=== PATIENT | female | born 1950 | race Caucasian/White ===

== ENCOUNTER → 2016-10-30 | Outpatient (CLI) | payer MEDICARE, MEDICAID ==
[~2016-10-30] MED LIST: ALBU18 IN; ALBU2SYP IN; ASPI81CH43 PO; CARV6.2551 PO; CLON1TAB3 PO; FER325T PO; FLUT110A IN; GABA300C8; LANTUS SUBCUT; LISI-275 PO; METF-312 PO; NITROSTAT PO; OMEP20TA44 PO; OXYC325T14 PO; PAXIL PO; SIMV-13 PO; SITA100T7 PO; TRAM50TA2 PO; VENTOLIN INFIL; VOLTARAN
[2016-10-30 17:02] LABS: Basophils # (auto) 0.1 uL; Basophils % (auto) 0.7 % (0.0-2.0); DEFINITIVE VIEW TRANSMISSION; Eosinophils # (auto) 0.3 uL; Eosinophils % (auto) 1.9 % (0.0-7.0); Hematocrit 39.3 % (36.0-46.0); Hemoglobin 12.7 g/dL (12.2-16.2); Lymphocytes % (auto) 13.8 % (10.0-50.0); Mean Corpuscular Hemoglobin 26.6 pg (28.0-32.0); Mean Corpuscular Hgb Conc. 32.3 g/dL (32.0-36.0); Mean Corpuscular Volume 82.3 fL (80.0-100.0); Mean Platelet Volume 8.7 fL (7.4-10.4); Monocytes # (auto) 0.7 uL; Monocytes % (auto) 5.1 % (0.0-12.0); Neutrophils # (auto) 11.2 uL; Neutrophils % (auto) 78.5 % (37.0-80.0); Platelet Count (auto) 498 10^3/uL (140-450); Red Cell Distribution Width 15.5 % (11.6-16.0); White Blood Cell 14.2 10^3/uL (4.4-10.8)
[2016-10-30 17:29] LABS: Albumin 3.8 g/dL (3.4-5.0); Bilirubin, Total 0.2 mg/dL (0.2-1.0); Calcium 9.3 mg/dL (8.5-10.1); Potassium 4.9 mmol/L (3.5-5.1); Total Protein 7.9 g/dL (6.4-8.2)
[2016-10-30 17:33] LABS: Urine Bilirubin Negative (Negative); Urine Blood Negative /uL (Negative); Urine Color Yellow (Yellow); Urine Glucose TRACE mg/dL (Normal); Urine Hyaline Cast MOD /lpf (0 - 2); Urine Ketone TRACE (Negative); Urine Mucus FEW (None Seen); Urine RBC 3 /hpf (0 - 4); Urine Squamous Epithelial Cell MOD /hpf (<5); Urine pH 5.5 (5.0-8.0)
[2016-10-30 17:37] LABS: Urine Nitrite POSITIVE (Negative)
== END | disposition home or self-care (01) ==
LOC: LAB 16:43
PROVIDERS: ATTEND Family Medicine
DX: E11.9 Type 2 diabetes mellitus without complications (principal); E78.5 Hyperlipidemia, unspecified
CPT/HCPCS: 36415; 80053; 80061; 81001; 82043; 82306; 83036; 85025

== ENCOUNTER → 2018-02-12 | Outpatient (CLI) | payer MEDICARE, MEDICAID ==
[~2018-02-12] MED LIST changes: -ALBU2SYP IN; +ALBU2SYP3 IN; -CLON1TAB3 PO; +CLON1TAB4 PO; +GABA300C10; -GABA300C8; -METF-312 PO; +METF-370 PO
[2018-02-12 14:33] LABS: Basophils # (auto) 0.1 uL; Basophils % (auto) 0.9 % (0.0-2.0); Eosinophils # (auto) 0.2 uL; Eosinophils % (auto) 2.8 % (0.0-7.0); Hematocrit 41.2 % (36.0-46.0); Hemoglobin 13.4 g/dL (12.2-16.2); Lymphocytes # (auto) 1.5 uL; Lymphocytes % (auto) 16.6 % (10.0-50.0); Mean Corpuscular Hemoglobin 27.6 pg (28.0-32.0); Mean Corpuscular Hgb Conc. 32.6 g/dL (32.0-36.0); Mean Corpuscular Volume 84.7 fL (80.0-100.0); Monocytes # (auto) 0.6 uL; Monocytes % (auto) 6.6 % (0.0-12.0); Neutrophils # (auto) 6.4 uL; Neutrophils % (auto) 73.1 % (37.0-80.0); Platelet Count (auto) 339 10^3/uL (140-450); Red Blood Cells 4.86 10^6/uL (4.0-5.20); Red Cell Distribution Width 15.3 % (11.8-14.3); White Blood Cell 8.8 10^3/uL (4.4-10.8)
[2018-02-12 15:06] LABS: Albumin 3.8 g/dL (3.4-5.0); Bilirubin, Total 0.4 mg/dL (0.2-1.0); Calcium 9.3 mg/dL (8.5-10.1); Potassium 4.7 mmol/L (3.5-5.1); Total Protein 7.6 g/dL (6.4-8.2)
[2018-02-13 12:55] LABS: Urine Bacteria FEW /hpf (None Seen); Urine Blood Negative /uL (Negative); Urine Budding Yeast MODERATE /hpf (None Seen); Urine Hyaline Cast FEW /lpf (0 - 2); Urine Mucus FEW (None Seen); Urine Specific Gravity 1.028 (1.001-1.035); Urine WBC 14 /hpf (0 - 5)
[2018-02-13 13:54] LABS: Amphetamine Screen, Urine NEGATIVE (NEGATIVE); Barbiturate Scree,Urine NEGATIVE (NEGATIVE); Benzodiazephine Screen, Urine NEGATIVE (NEGATIVE); Cannabinoid Screen, Urine NEGATIVE (NEGATIVE); Cocaine Screen, Urine NEGATIVE (NEGATIVE); Opiate Scree,Urine NEGATIVE (NEGATIVE); Phencyclidine Screen, Urine NEGATIVE (NEGATIVE)
== END | disposition home or self-care (01) ==
LOC: LAB 13:23
PROVIDERS: ATTEND Nurse Practitioner
DX: Z02.83 Encounter for blood-alcohol and blood-drug test (principal); E78.5 Hyperlipidemia, unspecified; I12.9 Hypertensive chronic kidney disease with stage 1 through stage 4 chronic kidney disease, or unspecified chronic kidney disease; E11.22 Type 2 diabetes mellitus with diabetic chronic kidney disease; N18.3 Chronic kidney disease, stage 3 (moderate)
CPT/HCPCS: 36415; 80053; 80061; 80307; 81001; 82043; 82306; 83036; 84443; 85025

== ENCOUNTER → 2018-08-20 | Outpatient (CLI) | payer MEDICARE, MEDICAID ==
[~2018-08-20] MED LIST changes: +ALB2.5IS NEB; -ALBU18 IN; -ALBU2SYP3 IN; +ALBUAER3 IN; +ASPI325T25 PO; -ASPI81CH43 PO; -CARV6.2551 PO; +CHOL20007 PO; -CLON1TAB4 PO; -GABA300C10; +IBUP800T24 PO; -LANTUS SUBCUT; -LISI-275 PO; +NITR0.4S29 SL; -NITROSTAT PO; -PAXIL PO; +PREG100C PO; -SITA100T7 PO; -TRAM50TA2 PO; -VENTOLIN INFIL; -VOLTARAN; +ZOLP10TA6 PO
[2018-08-20 09:42] LABS: Calcium 8.9 mg/dL (8.5-10.1); Potassium 4.6 mmol/L (3.5-5.1)
[2018-08-20 09:46] LABS: BUN/Creatinine Ratio 17.1
== END | disposition home or self-care (01) ==
LOC: LAB 09:02
PROVIDERS: ATTEND Internal Medicine
DX: B38.4 Coccidioidomycosis meningitis (principal); I11.0 Hypertensive heart disease with heart failure; I50.9 Heart failure, unspecified; E11.9 Type 2 diabetes mellitus without complications; J44.9 Chronic obstructive pulmonary disease, unspecified; Z90.710 Acquired absence of both cervix and uterus; Z90.722 Acquired absence of ovaries, bilateral
CPT/HCPCS: 36415; 80048; 80061; 82607; 83036

== ENCOUNTER → 2018-11-20 | Outpatient (CLI) | payer MEDICARE ==
[2018-11-20 15:46] LABS: Basophils # (auto) 0.1 uL; Eosinophils # (auto) 0.2 uL
[2018-11-20 15:49] LABS: Eosinophils % (auto) 2.8 % (0.0-7.0); Hematocrit 35.2 % (36.0-46.0); Hemoglobin 10.9 g/dL (12.2-16.2); Lymphocytes # (auto) 1.4 uL; Lymphocytes % (auto) 19.3 % (10.0-50.0); Mean Corpuscular Hemoglobin 26.8 pg (28.0-32.0); Mean Corpuscular Hgb Conc. 31.1 g/dL (32.0-36.0); Mean Corpuscular Volume 86.3 fL (80.0-100.0); Monocytes # (auto) 0.5 uL; Monocytes % (auto) 7.4 % (0.0-12.0); Neutrophils % (auto) 69.5 % (37.0-80.0); Nucleated Red Blood Cells % 0.1 %; Platelet Count (auto) 328 10^3/uL (140-450); Red Blood Cells 4.08 10^6/uL (4.0-5.20); White Blood Cell 7.3 10^3/uL (4.4-10.8)
[2018-11-20 15:50] LABS: Albumin 3.4 g/dL (3.4-5.0); BUN/Creatinine Ratio 16.1; Calcium 9.2 mg/dL (8.5-10.1); Magnesium 1.4 mg/dL (1.6-2.6); Potassium 4.5 mmol/L (3.5-5.1)
[2018-11-20 15:54] LABS: Bilirubin, Total 0.2 mg/dL (0.2-1.0); Phosphorus 3.4 mg/dL (2.5-4.90); Total Protein 6.4 g/dL (6.4-8.2)
== END | disposition home or self-care (01) ==
LOC: LAB 15:18
PROVIDERS: ATTEND Internal Medicine
DX: E11.42 Type 2 diabetes mellitus with diabetic polyneuropathy (principal); I11.0 Hypertensive heart disease with heart failure; I50.9 Heart failure, unspecified
CPT/HCPCS: 36415; 80053; 82550; 83036; 83735; 84100; 85025

== ENCOUNTER 2018-12-30 16:01 | Emergency (ER) | payer MEDICARE, MEDICAID ==
[~2018-12-30] VITALS: Ht 157.5 cm; Wt 81.6 kg
[2018-12-30] MEDS ORDERED: POTASSIUM EFFERVESENT TAB 25 MEQ PO ONE (16:45)
[2018-12-30] MEDS ORDERED: FUROSEMIDE 20 MG/2 ML VIAL IV ONE (16:45)
[2018-12-30 17:26] LABS: Basophils # (auto) 0.1 uL; Eosinophils # (auto) 0.3 uL; Monocytes # (auto) 0.5 uL; Red Cell Distribution Width 16.2 % (11.8-14.3)
[2018-12-30 17:31] LABS: Eosinophils % (auto) 4.5 % (0.0-7.0); Hemoglobin 8.6 g/dL (12.2-16.2); Lymphocytes # (auto) 1.2 uL; Lymphocytes % (auto) 16.5 % (10.0-50.0); Mean Corpuscular Hemoglobin 25.1 pg (28.0-32.0); Mean Corpuscular Hgb Conc. 29.7 g/dL (32.0-36.0); Mean Corpuscular Volume 84.7 fL (80.0-100.0); Monocytes % (auto) 6.8 % (0.0-12.0); Neutrophils % (auto) 71.2 % (37.0-80.0); Nucleated Red Blood Cells % 0.1 %; Platelet Count (auto) 294 10^3/uL (140-450); Red Blood Cells 3.42 10^6/uL (4.0-5.20)
[2018-12-30 17:34] LABS: BUN/Creatinine Ratio 19.7; Calcium 8.5 mg/dL (8.5-10.1); Potassium 4.3 mmol/L (3.5-5.1)
[2018-12-30 18:48] VITALS: BP 132/70
== END 2018-12-30 18:56 | disposition home or self-care (01) ==
LOC: ER 16:04
DX: I50.9 Heart failure, unspecified (principal); J44.9 Chronic obstructive pulmonary disease, unspecified; E11.9 Type 2 diabetes mellitus without complications; E78.5 Hyperlipidemia, unspecified; Z86.73 Personal history of transient ischemic attack (TIA), and cerebral infarction without residual deficits; Z90.710 Acquired absence of both cervix and uterus; Z95.1 Presence of aortocoronary bypass graft; Z79.899 Other long term (current) drug therapy
CPT/HCPCS: 36415; 80048; 83735; 83880; 85025; 93005; 93970; 96374; 99284; J1940

== ENCOUNTER → 2019-01-20 | Outpatient (CLI) | payer MEDICARE, MEDICAID ==
[2019-01-20 12:44] LABS: Basophils # (auto) 0.1 uL; Eosinophils # (auto) 0.3 uL; Hemoglobin 8.6 g/dL (12.2-16.2); Lymphocytes # (auto) 1.1 uL; Monocytes # (auto) 0.5 uL; Red Cell Distribution Width 16.9 % (11.8-14.3)
[2019-01-20 12:46] LABS: Basophils % (auto) 1.4 % (0.0-2.0); Eosinophils % (auto) 3.7 % (0.0-7.0); Hematocrit 28.9 % (36.0-46.0); Lymphocytes % (auto) 15.4 % (10.0-50.0); Mean Corpuscular Hemoglobin 24.7 pg (28.0-32.0); Mean Corpuscular Hgb Conc. 29.7 g/dL (32.0-36.0); Monocytes % (auto) 7.5 % (0.0-12.0); Neutrophils # (auto) 5.1 uL; Nucleated Red Blood Cells % 0.1 %; Platelet Count (auto) 353 10^3/uL (140-450); Red Blood Cells 3.48 10^6/uL (4.0-5.20)
[2019-01-20 13:09] LABS: INR 0.93 (0.9-1.15); Partial Thromboplastin Time 23.3 sec (23.64-32.05)
[2019-01-20 13:37] LABS: Calcium 8.7 mg/dL (8.5-10.1); Potassium 4.1 mmol/L (3.5-5.1)
[2019-01-20 13:41] LABS: BUN/Creatinine Ratio 16.7; Bilirubin, Total 0.2 mg/dL (0.2-1.0); Total Protein 6.3 g/dL (6.4-8.2)
== END | disposition home or self-care (01) ==
LOC: LAB 12:33
PROVIDERS: ATTEND Internal Medicine
DX: I11.0 Hypertensive heart disease with heart failure (principal); I50.9 Heart failure, unspecified; E11.9 Type 2 diabetes mellitus without complications
CPT/HCPCS: 36415; 80053; 83036; 85025; 85610; 85730

== ENCOUNTER 2019-05-08 12:41 | Emergency (ER) | payer MEDICARE, MEDICAID ==
[~2019-05-08] VITALS: Ht 157.5 cm; Wt 81.6 kg
[2019-05-08 12:54] VITALS: BP 131/64
[2019-05-08] MEDS ORDERED: MORPHINE SULF INJ 2 MG/ML SYRINGE 1ML IM ONE (15:00)
== END 2019-05-08 15:23 | disposition home or self-care (01) ==
LOC: ER 12:41
DX: S32.10XA Unspecified fracture of sacrum, initial encounter for closed fracture (principal); J44.9 Chronic obstructive pulmonary disease, unspecified; I25.10 Atherosclerotic heart disease of native coronary artery without angina pectoris; E11.9 Type 2 diabetes mellitus without complications; E78.00 Pure hypercholesterolemia, unspecified; Z95.1 Presence of aortocoronary bypass graft; Z90.710 Acquired absence of both cervix and uterus; Z90.49 Acquired absence of other specified parts of digestive tract; Z86.73 Personal history of transient ischemic attack (TIA), and cerebral infarction without residual deficits; Z79.1 Long term (current) use of non-steroidal anti-inflammatories (NSAID); Z79.891 Long term (current) use of opiate analgesic; Z79.899 Other long term (current) drug therapy; W18.39XA Other fall on same level, initial encounter; Y93.41 Activity, dancing; Y92.89 Other specified places as the place of occurrence of the external cause; Y99.8 Other external cause status
CPT/HCPCS: 72192; 96372; 99284; J2270

== ENCOUNTER → 2019-11-19 | Outpatient (CLI) | payer MEDICARE, MEDICAID ==
[2019-11-19 10:21] LABS: Basophils # (auto) 0.1 10 ^3/uL (0-0.2); Eosinophils # (auto) 0.2 10 ^3/uL (0-0.8); Hematocrit 44.5 % (36.0-46.0); Hemoglobin 14.3 g/dL (12.2-16.2); Lymphocytes # (auto) 1.5 10 ^3/uL (0.4-5.4); Lymphocytes % (auto) 14.7 % (10.0-50.0); Mean Corpuscular Hemoglobin 28.3 pg (28.0-32.0); Mean Corpuscular Hgb Conc. 32.2 g/dL (32.0-36.0); Mean Corpuscular Volume 87.7 fL (80.0-100.0); Monocytes # (auto) 0.8 10 ^3/uL (0-1.3); Monocytes % (auto) 7.9 % (0.0-12.0); Neutrophils # (auto) 7.5 10 ^3/uL (1.6-8.6); Neutrophils % (auto) 74.4 % (37.0-80.0); Platelet Count (auto) 343 10^3/uL (140-450); Red Blood Cells 5.07 10^6/uL (4.0-5.20); Red Cell Distribution Width 14.2 % (11.8-14.3); White Blood Cell 10.1 10^3/uL (4.4-10.8)
[2019-11-19 10:25] LABS: Urine Bacteria FEW /hpf (None Seen); Urine Blood Negative /uL (Negative); Urine Specific Gravity 1.016 (1.001-1.035); Urine WBC 20 /hpf (0 - 5)
[2019-11-19 11:09] LABS: Albumin 3.7 g/dL (3.4-5.0); BUN/Creatinine Ratio 19.4; Calcium 9.3 mg/dL (8.5-10.1)
[2019-11-19 11:16] LABS: Bilirubin, Total 0.3 mg/dL (0.2-1.0); Potassium 4.1 mmol/L (3.5-5.1); Total Protein 7.5 g/dL (6.4-8.2)
== END | disposition home or self-care (01) ==
LOC: LAB 09:51
PROVIDERS: ATTEND Nurse Practitioner
DX: E11.42 Type 2 diabetes mellitus with diabetic polyneuropathy (principal); I10 Essential (primary) hypertension; F32.9 Major depressive disorder, single episode, unspecified
CPT/HCPCS: 36415; 80053; 81001; 84443; 85025

== ENCOUNTER → 2020-02-09 | Outpatient (CLI) | payer MEDICARE, MEDICAID ==
[2020-02-09 10:42] LABS: Basophils # (auto) 0.1 10 ^3/uL (0-0.2); Basophils % (auto) 1.2 % (0.0-2.0); Eosinophils # (auto) 0.2 10 ^3/uL (0-0.8); Eosinophils % (auto) 2.8 % (0.0-7.0); Hematocrit 41.3 % (36.0-46.0); Hemoglobin 13.4 g/dL (12.2-16.2); Lymphocytes # (auto) 1.3 10 ^3/uL (0.4-5.4); Lymphocytes % (auto) 20.7 % (10.0-50.0); Mean Corpuscular Hemoglobin 28.6 pg (28.0-32.0); Mean Corpuscular Hgb Conc. 32.4 g/dL (32.0-36.0); Mean Corpuscular Volume 88.1 fL (80.0-100.0); Monocytes # (auto) 0.5 10 ^3/uL (0-1.3); Monocytes % (auto) 7.8 % (0.0-12.0); Neutrophils # (auto) 4.2 10 ^3/uL (1.6-8.6); Neutrophils % (auto) 67.5 % (37.0-80.0); Nucleated Red Blood Cells % 0.1 %; Platelet Count (auto) 317 10^3/uL (140-450); Red Blood Cells 4.69 10^6/uL (4.0-5.20); Red Cell Distribution Width 15.8 % (11.8-14.3); White Blood Cell 6.3 10^3/uL (4.4-10.8)
[2020-02-09 11:00] LABS: Urine Bacteria MOD /hpf (None Seen); Urine Blood Negative /uL (Negative); Urine Mucus FEW (None Seen); Urine Specific Gravity 1.015 (1.001-1.035); Urine WBC 23 /hpf (0 - 5)
[2020-02-09 11:20] LABS: Albumin 3.4 g/dL (3.4-5.0)
[2020-02-09 11:31] LABS: Bilirubin, Total 0.4 mg/dL (0.2-1.0); Calcium 8.8 mg/dL (8.5-10.1); Total Protein 6.6 g/dL (6.4-8.2)
== END | disposition home or self-care (01) ==
LOC: LAB 10:23
PROVIDERS: ATTEND Internal Medicine
DX: E11.22 Type 2 diabetes mellitus with diabetic chronic kidney disease (principal); N18.3 Chronic kidney disease, stage 3 (moderate)
CPT/HCPCS: 36415; 80053; 80061; 81001; 82043; 82306; 83036; 84439; 84443; 85025

== ENCOUNTER → 2020-03-24 | Outpatient (CLI) | payer MEDICARE, MEDICAID ==
[2020-03-24 10:45] LABS: Basophils # (auto) 0.1 10 ^3/uL (0-0.2); Basophils % (auto) 0.8 % (0.0-2.0); Eosinophils # (auto) 0.2 10 ^3/uL (0-0.8); Eosinophils % (auto) 2.3 % (0.0-7.0); Hemoglobin 13.2 g/dL (12.2-16.2); Lymphocytes # (auto) 1.5 10 ^3/uL (0.4-5.4); Lymphocytes % (auto) 17.4 % (10.0-50.0); Mean Corpuscular Hemoglobin 28.9 pg (28.0-32.0); Mean Corpuscular Hgb Conc. 32.1 g/dL (32.0-36.0); Monocytes # (auto) 0.6 10 ^3/uL (0-1.3); Monocytes % (auto) 6.4 % (0.0-12.0); Neutrophils # (auto) 6.5 10 ^3/uL (1.6-8.6); Neutrophils % (auto) 73.1 % (37.0-80.0); Nucleated Red Blood Cells % 0.1 %; Platelet Count (auto) 292 10^3/uL (140-450); Red Blood Cells 4.56 10^6/uL (4.0-5.20); Red Cell Distribution Width 14.9 % (11.8-14.3); White Blood Cell 8.9 10^3/uL (4.4-10.8)
[2020-03-24 10:56] LABS: Urine Bacteria FEW /hpf (None Seen); Urine Blood Negative /uL (Negative); Urine Specific Gravity 1.018 (1.001-1.035); Urine WBC 23 /hpf (0 - 5)
[2020-03-24 11:06] LABS: Albumin 3.6 g/dL (3.4-5.0); Calcium 8.5 mg/dL (8.5-10.1); Potassium 5.2 mmol/L (3.5-5.1)
[2020-03-24 11:12] LABS: Bilirubin, Total 0.3 mg/dL (0.2-1.0); Total Protein 6.8 g/dL (6.4-8.2)
== END | disposition home or self-care (01) ==
LOC: LAB 10:18
PROVIDERS: ATTEND Internal Medicine
DX: E11.42 Type 2 diabetes mellitus with diabetic polyneuropathy (principal); I11.0 Hypertensive heart disease with heart failure; I50.9 Heart failure, unspecified; J44.9 Chronic obstructive pulmonary disease, unspecified; Z79.4 Long term (current) use of insulin
CPT/HCPCS: 36415; 80053; 80061; 81001; 82043; 82306; 83036; 84439; 84443; 85025

== ENCOUNTER → 2020-03-30 | Outpatient (CLI) | payer MEDICARE, MEDICAID | END | disposition home or self-care (01) | LOC: LAB 16:47 | PROVIDERS: ATTEND Physician Assistant | DX: L82.1 Other seborrheic keratosis (principal); L57.0 Actinic keratosis ==

== ENCOUNTER → 2020-04-12 | Outpatient (CLI) | payer MEDICARE, MEDICAID ==
[2020-04-12 10:10] LABS: BUN/Creatinine Ratio 18.5; Calcium 9.1 mg/dL (8.5-10.1); Potassium 3.9 mmol/L (3.5-5.1)
== END | disposition home or self-care (01) ==
LOC: LAB 09:33
PROVIDERS: ATTEND Internal Medicine
DX: E11.22 Type 2 diabetes mellitus with diabetic chronic kidney disease (principal); I12.9 Hypertensive chronic kidney disease with stage 1 through stage 4 chronic kidney disease, or unspecified chronic kidney disease; N18.30 Chronic kidney disease, stage 3 unspecified
CPT/HCPCS: 36415; 80048

== ENCOUNTER → 2020-07-28 | Outpatient (CLI) | payer MEDICARE, MEDICAID ==
[~2020-07-28] MED LIST changes: +CARV3.1240 PO; +CIPR500T4 PO; +EMPA1TAB PO; +GLIP10TA9 PO; -IBUP800T24 PO; +IBUP800T26 PO; +OXYC-963; +PARO30TA99; +PREG-111 PO; +ROSU1TAB14 PO; +TRAM50TA2 PO
== END | disposition home or self-care (01) ==
LOC: LAB 17:11
PROVIDERS: ATTEND Urology
DX: R30.0 Dysuria (principal)
CPT/HCPCS: 87086; 87088; 87186

== ENCOUNTER 2020-07-30 03:53 | Emergency (ER) | payer MEDICARE, MEDICAID ==
[~2020-07-30] VITALS: Ht 157.5 cm; Wt 90.7 kg
[~2020-07-30 03:53] MED LIST changes: -CARV3.1240 PO; -CIPR500T4 PO; -EMPA1TAB PO; -GLIP10TA9 PO; -OXYC-963; -PARO30TA99; -PREG-111 PO; -ROSU1TAB14 PO; -TRAM50TA2 PO
[2020-07-30 08:10] LABS: Basophils # (auto) 0.1 10 ^3/uL (0-0.2); Basophils % (auto) 0.8 % (0.0-2.0); Eosinophils # (auto) 0.2 10 ^3/uL (0-0.8); Eosinophils % (auto) 2.1 % (0.0-7.0); Hematocrit 41.2 % (36.0-46.0); Hemoglobin 13.6 g/dL (12.2-16.2); Lymphocytes # (auto) 1.9 10 ^3/uL (0.4-5.4); Mean Corpuscular Hemoglobin 28.2 pg (28.0-32.0); Mean Corpuscular Volume 85.6 fL (80.0-100.0); Monocytes # (auto) 0.6 10 ^3/uL (0-1.3); Monocytes % (auto) 7.6 % (0.0-12.0); Neutrophils # (auto) 5.5 10 ^3/uL (1.6-8.6); Neutrophils % (auto) 66.5 % (37.0-80.0); Platelet Count (auto) 267 10^3/uL (140-450); Red Blood Cells 4.82 10^6/uL (4.0-5.20); Red Cell Distribution Width 15.6 % (11.8-14.3); White Blood Cell 8.2 10^3/uL (4.4-10.8)
[2020-07-30 08:27] LABS: Albumin 3.7 g/dL (3.4-5.0); Anion Gap 6 (5-15); Blood Urea Nitrogen 16 mg/dL (7-18); Carbon Dioxide 27 mmol/L (21-32); Chloride 105 mmol/L (98-107); Glucose 213 mg/dL (74-106); Sodium 138 mmol/L (136-145)
[2020-07-30] MEDS: PROMETHAZINE HCL 25 MG/ML 1ML IV PRN (08:31)
[2020-07-30] MEDS: HYDROmorphone HCL 2 MG/ML VL IV ONE (08:31)
[2020-07-30] MEDS: SODIUM CHLORIDE 0.9% 500 ML IVB ONE (08:31)
[2020-07-30] MEDS: SODIUM CHLORIDE 0.9% 1,000 ML IV ONE (08:31)
[2020-07-30 08:33] LABS: Alanine Aminotransferase 23 U/L (13-56); Alkaline Phosphatase 92 U/L (45-117); Aspartate Aminotransferase 15 U/L (15-37); BUN/Creatinine Ratio 17.8; Bilirubin, Total 0.3 mg/dL (0.2-1.0); GFR African American 79 mL/min; GFR Non-African American 66 mL/min; Total Protein 7.4 g/dL (6.4-8.2)
[2020-07-30 08:47] LABS: INR 0.96 (0.9-1.15); Partial Thromboplastin Time 24.6 sec (23.0-31.2)
[2020-07-30] MEDS ORDERED: EMPA1TAB PO (09:24)
[2020-07-30] MEDS ORDERED: PARO30TA99 (09:24)
[2020-07-30] MEDS ORDERED: ROSU1TAB14 PO (09:24)
[2020-07-30] MEDS ORDERED: OXYC-963 (09:24)
[2020-07-30] MEDS ORDERED: PREG-111 PO (09:24)
[2020-07-30] MEDS ORDERED: TRAM50TA2 PO (09:24)
[2020-07-30] MEDS ORDERED: GLIP10TA9 PO (09:24)
[2020-07-30] MEDS ORDERED: CARV3.1240 PO (09:24)
[2020-07-30] MEDS ORDERED: CIPR500T4 PO (09:24)
[2020-07-30 12:26] LABS: Urine Bacteria FEW /hpf (None Seen); Urine Blood Negative /uL (Negative); Urine Specific Gravity 1.028 (1.001-1.035); Urine WBC 2 /hpf (0 - 5)
[2020-07-30 14:00] VITALS: BP 108/49
== END 2020-07-30 14:07 | disposition home or self-care (01) ==
LOC: ER 03:53
DX: E11.65 Type 2 diabetes mellitus with hyperglycemia (principal); G89.29 Other chronic pain; M54.5 Low back pain; J44.9 Chronic obstructive pulmonary disease, unspecified; E78.5 Hyperlipidemia, unspecified; K21.9 Gastro-esophageal reflux disease without esophagitis; Z86.73 Personal history of transient ischemic attack (TIA), and cerebral infarction without residual deficits; Z90.710 Acquired absence of both cervix and uterus
CPT/HCPCS: 36415; 80053; 81001; 83880; 84484; 85025; 85610; 85730; 93005; 96361; 96374; 96375; 99284; J1170; J2550; J7030; J7040

== ENCOUNTER → 2020-08-03 | Outpatient (CLI) | payer MEDICARE, MEDICAID ==
[~2020-08-03] MED LIST changes: +CARV3.1240 PO; +CIPR500T4 PO; +EMPA1TAB PO; +GLIP10TA9 PO; +OXYC-963; +PARO30TA99; +PREG-111 PO; +ROSU1TAB14 PO; +TRAM50TA2 PO
== END | disposition home or self-care (01) ==
LOC: LAB 15:19
PROVIDERS: ATTEND Internal Medicine
DX: E66.01 Morbid (severe) obesity due to excess calories (principal)
CPT/HCPCS: 82274

== ENCOUNTER → 2020-08-18 | Day surgery (SDC) | payer MEDICARE, MEDICAID ==
[2020-08-15 15:21] LABS: Basophils # (auto) 0 10 ^3/uL (0-0.2); Basophils % (auto) 0.7 % (0.0-2.0); Eosinophils # (auto) 0.2 10 ^3/uL (0-0.8); Eosinophils % (auto) 2.6 % (0.0-7.0); Hematocrit 40.6 % (36.0-46.0); Hemoglobin 13.2 g/dL (12.2-16.2); Lymphocytes # (auto) 1.2 10 ^3/uL (0.4-5.4); Lymphocytes % (auto) 17.4 % (10.0-50.0); Mean Corpuscular Hemoglobin 28.4 pg (28.0-32.0); Mean Corpuscular Hgb Conc. 32.6 g/dL (32.0-36.0); Mean Corpuscular Volume 87.1 fL (80.0-100.0); Monocytes # (auto) 0.5 10 ^3/uL (0-1.3); Monocytes % (auto) 6.9 % (0.0-12.0); Neutrophils # (auto) 5.1 10 ^3/uL (1.6-8.6); Neutrophils % (auto) 72.4 % (37.0-80.0); Nucleated Red Blood Cells % 0.1 %; Platelet Count (auto) 264 10^3/uL (140-450); Red Blood Cells 4.66 10^6/uL (4.0-5.20); Red Cell Distribution Width 15.8 % (11.8-14.3); White Blood Cell 7.1 10^3/uL (4.4-10.8)
[2020-08-15 15:37] LABS: INR 0.97 (0.9-1.15); Partial Thromboplastin Time 23.6 sec (23.0-31.2)
[~2020-08-18] VITALS: Ht 157.5 cm; Wt 90.7 kg
[~2020-08-18] MED LIST changes: +ASPI-543 PO; -ASPI325T25 PO; +B-COCAP4 PO; -CIPR500T4 PO; -FLUT110A IN; +INSU1INJ19 SC; +LIDOCAINE VISCOUS 2% 15ML UD ONE; -NITR0.4S29 SL; -OMEP20TA44 PO; +OXYB10TA14 PO; -OXYC-963; +OXYC-963 PO; -OXYC325T14 PO; +PANT40TA2 PO; -PARO30TA99; +PARO30TA99 PO; -PREG100C PO; -SIMV-13 PO; +diphenhdrAMINE HCL 50 MG/1 ML VL ONE
[2020-08-18] MEDS: MIDAZOLAM HCL 5 MG/ML-1ML VIAL ONE ×2 (11:08→11:11)
[2020-08-18] MEDS: fentaNYL CITRATE 100 MCG/2 ML VL ONE ×2 (11:08→11:11)
[2020-08-18 12:10] VITALS: BP 104/60
== END | disposition home or self-care (01) ==
LOC: GI 09:13
PROVIDERS: ATTEND Internal Medicine Gastroenterology
DX: R10.13 Epigastric pain (principal); K29.50 Unspecified chronic gastritis without bleeding; J44.9 Chronic obstructive pulmonary disease, unspecified; R13.10 Dysphagia, unspecified; I25.810 Atherosclerosis of coronary artery bypass graft(s) without angina pectoris; K44.9 Diaphragmatic hernia without obstruction or gangrene; I50.9 Heart failure, unspecified; E66.9 Obesity, unspecified; F32.9 Major depressive disorder, single episode, unspecified; F41.9 Anxiety disorder, unspecified; E11.9 Type 2 diabetes mellitus without complications; M79.89 Other specified soft tissue disorders; Z20.822 Contact with and (suspected) exposure to COVID-19; Z98.890 Other specified postprocedural states; Z79.899 Other long term (current) drug therapy; Z90.710 Acquired absence of both cervix and uterus; Z79.82 Long term (current) use of aspirin; Z68.36 Body mass index [BMI] 36.0-36.9, adult; Z90.721 Acquired absence of ovaries, unilateral; Z87.891 Personal history of nicotine dependence
CPT/HCPCS: 36415; 43239; 43450; 82962; 85025; 85610; 85730; 88305; 88342; J1200; J2250; J3010; J7030; U0003; G0500

== ENCOUNTER → 2020-08-25 | Outpatient (CLI) | payer MEDICARE, MEDICAID ==
[~2020-08-25] MED LIST changes: -LIDOCAINE VISCOUS 2% 15ML UD ONE; -diphenhdrAMINE HCL 50 MG/1 ML VL ONE
[2020-08-26 07:56] LABS: Urine Bacteria FEW /hpf (None Seen); Urine Blood Negative /uL (Negative); Urine Mucus FEW (None Seen); Urine WBC 62 /hpf (0 - 5)
== END | disposition home or self-care (01) ==
LOC: LAB 07:34
PROVIDERS: ATTEND Urology
DX: N39.0 Urinary tract infection, site not specified (principal)
CPT/HCPCS: 81001; 87086; 87088; 87186

== ENCOUNTER → 2021-01-03 | Outpatient (CLI) | payer MEDICARE, MEDICAID ==
[2021-01-03 17:39] LABS: Albumin 3.5 g/dL (3.4-5.0); BUN/Creatinine Ratio 14.6; Bilirubin, Total 0.3 mg/dL (0.2-1.0); Calcium 8.6 mg/dL (8.5-10.1); Total Protein 7.2 g/dL (6.4-8.2)
== END | disposition home or self-care (01) ==
LOC: LAB 16:50
PROVIDERS: ATTEND Internal Medicine
DX: E11.22 Type 2 diabetes mellitus with diabetic chronic kidney disease (principal); N18.30 Chronic kidney disease, stage 3 unspecified
CPT/HCPCS: 36415; 80053; 82043; 83036

== ENCOUNTER → 2021-05-23 | Outpatient (CLI) | payer MEDICARE, MEDICAID ==
[2021-05-23 08:51] LABS: Urine Bacteria FEW /hpf (None Seen); Urine Blood Negative /uL (Negative); Urine Mucus FEW (None Seen); Urine WBC 10 /hpf (0 - 5)
== END | disposition home or self-care (01) ==
LOC: LAB 08:34
PROVIDERS: ATTEND Urology
DX: N39.0 Urinary tract infection, site not specified (principal)
CPT/HCPCS: 81001; 87086

== ENCOUNTER → 2021-07-25 | Outpatient (CLI) | payer MEDICARE, MEDICAID ==
[2021-07-25 11:22] LABS: Basophils # (auto) 0.1 10 ^3/uL (0-0.2); Basophils % (auto) 1.7 % (0.0-2.0); Eosinophils # (auto) 0.1 10 ^3/uL (0-0.8); Eosinophils % (auto) 2.2 % (0.0-7.0); Hematocrit 42.1 % (36.0-46.0); Lymphocytes # (auto) 1.7 10 ^3/uL (0.4-5.4); Lymphocytes % (auto) 25.4 % (10.0-50.0); Mean Corpuscular Hemoglobin 28.8 pg (28.0-32.0); Mean Corpuscular Hgb Conc. 33.3 g/dL (32.0-36.0); Mean Corpuscular Volume 86.6 fL (80.0-100.0); Monocytes # (auto) 0.4 10 ^3/uL (0-1.3); Monocytes % (auto) 6.7 % (0.0-12.0); Neutrophils # (auto) 4.3 10 ^3/uL (1.6-8.6); Nucleated Red Blood Cells % 0.1 %; Red Blood Cells 4.86 10^6/uL (4.0-5.20); Red Cell Distribution Width 15.4 % (11.8-14.3); White Blood Cell 6.7 10^3/uL (4.4-10.8)
[2021-07-25 11:30] LABS: Calcium 9.5 mg/dL (8.5-10.1)
[2021-07-25 11:35] LABS: Albumin 3.4 g/dL (3.4-5.0); BUN/Creatinine Ratio 24.1; Bilirubin, Total 0.3 mg/dL (0.2-1.0); Total Protein 6.5 g/dL (6.4-8.2)
== END | disposition home or self-care (01) ==
LOC: LAB 09:21
PROVIDERS: ATTEND Internal Medicine
DX: E11.42 Type 2 diabetes mellitus with diabetic polyneuropathy (principal); E55.9 Vitamin D deficiency, unspecified
CPT/HCPCS: 36415; 80053; 82306; 83036; 85025

== ENCOUNTER → 2021-07-27 | Day surgery (SDC) | payer MEDICARE, MEDICAID ==
[2021-07-25 10:23] LABS: INR 0.91 (0.9-1.15); Partial Thromboplastin Time 24.2 sec (23.6-33.0)
[2021-07-25 10:51] LABS: Urine Bacteria FEW /hpf (None Seen); Urine Blood Negative /uL (Negative); Urine Specific Gravity 1.032 (1.001-1.035); Urine WBC 3 /hpf (0 - 5)
[2021-07-25 11:18] LABS: Basophils # (auto) 0.1 10 ^3/uL (0-0.2); Eosinophils # (auto) 0.2 10 ^3/uL (0-0.8); Eosinophils % (auto) 2.7 % (0.0-7.0); Hematocrit 42.3 % (36.0-46.0); Hemoglobin 14.1 g/dL (12.2-16.2); Lymphocytes # (auto) 1.8 10 ^3/uL (0.4-5.4); Lymphocytes % (auto) 26.8 % (10.0-50.0); Mean Corpuscular Hemoglobin 28.7 pg (28.0-32.0); Mean Corpuscular Hgb Conc. 33.2 g/dL (32.0-36.0); Mean Corpuscular Volume 86.3 fL (80.0-100.0); Monocytes # (auto) 0.5 10 ^3/uL (0-1.3); Monocytes % (auto) 6.6 % (0.0-12.0); Neutrophils # (auto) 4.3 10 ^3/uL (1.6-8.6); Neutrophils % (auto) 62.9 % (37.0-80.0); Nucleated Red Blood Cells % 0.2 %; Red Cell Distribution Width 15.2 % (11.8-14.3); White Blood Cell 6.8 10^3/uL (4.4-10.8)
[2021-07-25 11:33] LABS: Potassium 3.9 mmol/L (3.5-5.1)
[2021-07-25 13:21] LABS: Albumin 3.4 g/dL (3.4-5.0); BUN/Creatinine Ratio 22.4; Bilirubin, Total 0.4 mg/dL (0.2-1.0); Calcium 9.9 mg/dL (8.5-10.1); Total Protein 6.5 g/dL (6.4-8.2)
[~2021-07-27] VITALS: Ht 157.5 cm; Wt 90.7 kg
[~2021-07-27] MED LIST changes: +HYDROmorphone HCL 2 MG/ML VL IV PRN; +MIDAZOLAM HCL 2MG/2ML 2ml VIAL (1mg/ml) ONE; +ONDANSETRON HCL 4 MG/2 ML VIAL IV PRN; +ONDANSETRON HCL 4 MG/2 ML VIAL ONE; -OXYC-963 PO; +PROPOFOL 10 MG/ML 20 ML IV ONE; -TRAM50TA2 PO; +ceFAZolin 1GM/50ML 50 ML IV ONE; +fentaNYL CITRATE 100 MCG/2 ML VL ONE
[2021-07-27 14:45] VITALS: BP 111/70
== END | disposition home or self-care (01) ==
LOC: SUR 09:07
PROVIDERS: ATTEND Urology
DX: N39.3 Stress incontinence (female) (male) (principal); N36.42 Intrinsic sphincter deficiency (ISD); E11.40 Type 2 diabetes mellitus with diabetic neuropathy, unspecified; F32.9 Major depressive disorder, single episode, unspecified; I25.119 Atherosclerotic heart disease of native coronary artery with unspecified angina pectoris; J44.9 Chronic obstructive pulmonary disease, unspecified; E78.5 Hyperlipidemia, unspecified; Z90.710 Acquired absence of both cervix and uterus; Z20.822 Contact with and (suspected) exposure to COVID-19
CPT/HCPCS: 36415; 51715; 74018; 76000; 80053; 81001; 82962; 85025; 85610; 85730; J0690; J2250; J2405; J2704; J3010; L8606; U0003

== ENCOUNTER → 2021-11-23 | Outpatient (CLI) | payer MEDICARE, MEDICAID ==
[2021-11-20 13:20] LABS: Basophils # (auto) 0 10 ^3/uL (0-0.2); Basophils % (auto) 0.4 % (0.0-2.0); Eosinophils # (auto) 0.2 10 ^3/uL (0-0.8); Eosinophils % (auto) 2.6 % (0.0-7.0); Hematocrit 42.4 % (36.0-46.0); Lymphocytes # (auto) 1.6 10 ^3/uL (0.4-5.4); Lymphocytes % (auto) 20.2 % (10.0-50.0); Mean Corpuscular Hemoglobin 28.9 pg (28.0-32.0); Mean Corpuscular Volume 87.6 fL (80.0-100.0); Monocytes # (auto) 0.5 10 ^3/uL (0-1.3); Monocytes % (auto) 6.1 % (0.0-12.0); Neutrophils # (auto) 5.7 10 ^3/uL (1.6-8.6); Neutrophils % (auto) 70.7 % (37.0-80.0); Red Blood Cells 4.84 10^6/uL (4.0-5.20); Red Cell Distribution Width 14.7 % (11.8-14.3); White Blood Cell 8.1 10^3/uL (4.4-10.8)
[2021-11-20 13:36] LABS: INR 0.94 (0.9-1.15); Partial Thromboplastin Time 23.7 sec (23.6-33.0)
[2021-11-20 13:43] LABS: Albumin 3.5 g/dL (3.4-5.0); Calcium 8.9 mg/dL (8.5-10.1); Potassium 4.3 mmol/L (3.5-5.1)
[2021-11-20 13:46] LABS: Bilirubin, Total 0.3 mg/dL (0.2-1.0); Total Protein 6.8 g/dL (6.4-8.2)
[2021-11-20 14:00] LABS: Urine Bacteria FEW /hpf (None Seen); Urine Blood Negative /uL (Negative); Urine Mucus FEW (None Seen); Urine Specific Gravity 1.034 (1.001-1.035); Urine WBC 7 /hpf (0 - 5)
[~2021-11-23] VITALS: Ht 157.5 cm; Wt 90.7 kg
[~2021-11-23] MED LIST changes: -GLIP10TA9 PO; -HYDROmorphone HCL 2 MG/ML VL IV PRN; +InsuLIN REG 1unit/0.01ml Soln (100units/ml) ONE; -METF-370 PO; -MIDAZOLAM HCL 2MG/2ML 2ml VIAL (1mg/ml) ONE; -ONDANSETRON HCL 4 MG/2 ML VIAL IV PRN; -ONDANSETRON HCL 4 MG/2 ML VIAL ONE; -PREG-111 PO; -PROPOFOL 10 MG/ML 20 ML IV ONE; -ceFAZolin 1GM/50ML 50 ML IV ONE; -fentaNYL CITRATE 100 MCG/2 ML VL ONE
== END | disposition home or self-care (01) ==
LOC: SUR 07:03 → EDSTATUS 09:00
PROVIDERS: ATTEND Urology
DX: N39.3 Stress incontinence (female) (male) (principal); Z53.8 Procedure and treatment not carried out for other reasons; I11.0 Hypertensive heart disease with heart failure; I50.9 Heart failure, unspecified; I25.119 Atherosclerotic heart disease of native coronary artery with unspecified angina pectoris; J44.9 Chronic obstructive pulmonary disease, unspecified; F41.9 Anxiety disorder, unspecified; F32.A Depression, unspecified; Z90.710 Acquired absence of both cervix and uterus; Z87.891 Personal history of nicotine dependence; Z82.49 Family history of ischemic heart disease and other diseases of the circulatory system; Z83.3 Family history of diabetes mellitus; Z20.822 Contact with and (suspected) exposure to COVID-19
CPT/HCPCS: 36415; 80053; 81001; 82962; 85025; 85610; 85730; J1815; U0003

== ENCOUNTER → 2022-02-13 | Outpatient (CLI) | payer MEDICARE, MEDICAID ==
[~2022-02-13] MED LIST changes: -InsuLIN REG 1unit/0.01ml Soln (100units/ml) ONE
[2022-02-13 13:02] LABS: Basophils # (auto) 0.1 10 ^3/uL (0-0.2); Basophils % (auto) 1.4 % (0.0-2.0); Eosinophils # (auto) 0.2 10 ^3/uL (0-0.8); Eosinophils % (auto) 3.4 % (0.0-7.0); Hematocrit 41.9 % (36.0-46.0); Hemoglobin 13.5 g/dL (12.2-16.2); Lymphocytes # (auto) 1.2 10 ^3/uL (0.4-5.4); Lymphocytes % (auto) 21.8 % (10.0-50.0); Mean Corpuscular Hemoglobin 28.1 pg (28.0-32.0); Mean Corpuscular Hgb Conc. 32.3 g/dL (32.0-36.0); Mean Corpuscular Volume 86.9 fL (80.0-100.0); Monocytes # (auto) 0.4 10 ^3/uL (0-1.3); Monocytes % (auto) 7.3 % (0.0-12.0); Neutrophils # (auto) 3.6 10 ^3/uL (1.6-8.6); Neutrophils % (auto) 66.1 % (37.0-80.0); Red Blood Cells 4.82 10^6/uL (4.0-5.20); White Blood Cell 5.4 10^3/uL (4.4-10.8)
[2022-02-13 13:16] LABS: INR 0.91 (0.9-1.15)
[2022-02-13 13:36] LABS: Calcium 8.4 mg/dL (8.5-10.1); Potassium 3.9 mmol/L (3.5-5.1)
[2022-02-13 13:38] LABS: BUN/Creatinine Ratio 10.8
== END | disposition home or self-care (01) ==
LOC: LAB 12:40
PROVIDERS: ATTEND Anesthesiology Pain Medicine
DX: R79.1 Abnormal coagulation profile (principal); Z90.01 Acquired absence of eye
CPT/HCPCS: 36415; 80048; 85025; 85610; 85730

== ENCOUNTER 2022-03-15 10:09 | Day surgery (SDC) | payer MEDICARE, MEDICAID ==
[2022-03-12 14:25] LABS: Basophils # (auto) 0.1 10 ^3/uL (0-0.2); Basophils % (auto) 1.1 % (0.0-2.0); Eosinophils # (auto) 0.1 10 ^3/uL (0-0.8); Eosinophils % (auto) 1.8 % (0.0-7.0); Hematocrit 42.4 % (36.0-46.0); Hemoglobin 13.4 g/dL (12.2-16.2); Lymphocytes # (auto) 1.3 10 ^3/uL (0.4-5.4); Lymphocytes % (auto) 15.6 % (10.0-50.0); Mean Corpuscular Hemoglobin 28.1 pg (28.0-32.0); Mean Corpuscular Hgb Conc. 31.5 g/dL (32.0-36.0); Mean Corpuscular Volume 89.1 fL (80.0-100.0); Monocytes # (auto) 0.4 10 ^3/uL (0-1.3); Monocytes % (auto) 5.4 % (0.0-12.0); Neutrophils # (auto) 6.4 10 ^3/uL (1.6-8.6); Neutrophils % (auto) 76.1 % (37.0-80.0); Red Blood Cells 4.76 10^6/uL (4.0-5.20); Red Cell Distribution Width 15.2 % (11.8-14.3); White Blood Cell 8.4 10^3/uL (4.4-10.8)
[2022-03-12 14:41] LABS: INR 0.92 (0.9-1.15); Partial Thromboplastin Time 24.4 sec (24.6-33.4)
[2022-03-12 15:04] LABS: Albumin 3.5 g/dL (3.4-5.0); Calcium 9.1 mg/dL (8.5-10.1); Potassium 4.2 mmol/L (3.5-5.1)
[2022-03-12 15:13] LABS: BUN/Creatinine Ratio 15.4; Bilirubin, Total 0.2 mg/dL (0.2-1.0); Total Protein 6.4 g/dL (6.4-8.2)
[~2022-03-15] VITALS: Ht 157.5 cm; Wt 90.7 kg
[2022-03-15] MEDS ORDERED: LIDOCAINE VISCOUS 2% 15ML UD ONE (11:01)
[2022-03-15] MEDS ORDERED: MIDAZOLAM HCL 5 MG/ML-1ML VIAL ONE (11:02)
[2022-03-15] MEDS ORDERED: diphenhdrAMINE HCL 50 MG/1 ML VL ONE (11:02)
[2022-03-15] MEDS ORDERED: fentaNYL CITRATE 100 MCG/2 ML VL ONE (11:02)
[2022-03-15 13:15] VITALS: BP 118/43
== END 2022-03-15 13:25 | disposition home or self-care (01) ==
LOC: GI 10:09
PROVIDERS: ATTEND Internal Medicine Gastroenterology
DX: R12 Heartburn (principal); K29.50 Unspecified chronic gastritis without bleeding; Z20.822 Contact with and (suspected) exposure to COVID-19; I10 Essential (primary) hypertension; E11.9 Type 2 diabetes mellitus without complications; E78.5 Hyperlipidemia, unspecified; F32.A Depression, unspecified; K21.9 Gastro-esophageal reflux disease without esophagitis; Z79.899 Other long term (current) drug therapy; Z79.84 Long term (current) use of oral hypoglycemic drugs
CPT/HCPCS: 36415; 43239; 80053; 82962; 85025; 85610; 85730; 88305; 88342; J1200; J2250; J3010; U0003

== ENCOUNTER → 2022-03-21 | Outpatient (CLI) | payer MEDICARE, MEDICAID ==
[~2022-03-21] VITALS: Ht 157.5 cm; Wt 88.5 kg
[~2022-03-21] MED LIST changes: +ADENOSINE 74 MG in GIVE UN-DILUTED 0 ML IV ONE
== END | disposition home or self-care (01) ==
LOC: XY 08:46
PROVIDERS: ATTEND Internal Medicine
DX: Z01.810 Encounter for preprocedural cardiovascular examination (principal); I25.810 Atherosclerosis of coronary artery bypass graft(s) without angina pectoris; Z87.891 Personal history of nicotine dependence; Z95.1 Presence of aortocoronary bypass graft
CPT/HCPCS: 78452; 93017; A9500; J0153

== ENCOUNTER → 2022-06-15 | Outpatient (CLI) | payer OTHER, MEDICARE, MEDICAID ==
[~2022-06-15] MED LIST changes: -ADENOSINE 74 MG in GIVE UN-DILUTED 0 ML IV ONE
[2022-06-15 14:50] LABS: Urine Blood Negative /uL (Negative); Urine Specific Gravity 1.018 (1.001-1.035)
[2022-06-15 14:55] LABS: Basophils # (auto) 0.1 10 ^3/uL (0-0.2); Basophils % (auto) 0.9 % (0.0-2.0); Eosinophils # (auto) 0.2 10 ^3/uL (0-0.8); Eosinophils % (auto) 2.1 % (0.0-7.0); Hematocrit 46.2 % (36.0-46.0); Hemoglobin 15.1 g/dL (12.2-16.2); Lymphocytes # (auto) 1.4 10 ^3/uL (0.4-5.4); Lymphocytes % (auto) 16.2 % (10.0-50.0); Mean Corpuscular Hemoglobin 28.7 pg (28.0-32.0); Mean Corpuscular Hgb Conc. 32.8 g/dL (32.0-36.0); Mean Corpuscular Volume 87.7 fL (80.0-100.0); Monocytes # (auto) 0.6 10 ^3/uL (0-1.3); Monocytes % (auto) 7.2 % (0.0-12.0); Neutrophils # (auto) 6.3 10 ^3/uL (1.6-8.6); Neutrophils % (auto) 73.6 % (37.0-80.0); Nucleated Red Blood Cells % 0.1 %; Red Blood Cells 5.26 10^6/uL (4.0-5.20); Red Cell Distribution Width 15.3 % (11.8-14.3); White Blood Cell 8.5 10^3/uL (4.4-10.8)
[2022-06-15 15:13] LABS: Albumin 3.5 g/dL (3.4-5.0); Calcium 9.2 mg/dL (8.5-10.1); Potassium 4.1 mmol/L (3.5-5.1)
[2022-06-15 15:18] LABS: BUN/Creatinine Ratio 15.3; Bilirubin, Total 0.3 mg/dL (0.2-1.0); Total Protein 6.8 g/dL (6.4-8.2)
[2022-06-15 17:24] LABS: Micro Albumin 42.7 mg/L (0-30.0)
== END | disposition home or self-care (01) ==
LOC: LAB 14:34
PROVIDERS: ATTEND Internal Medicine
DX: I12.9 Hypertensive chronic kidney disease with stage 1 through stage 4 chronic kidney disease, or unspecified chronic kidney disease (principal); E11.22 Type 2 diabetes mellitus with diabetic chronic kidney disease; N18.9 Chronic kidney disease, unspecified; E55.9 Vitamin D deficiency, unspecified
CPT/HCPCS: 36415; 80053; 80061; 81003; 82043; 82274; 82306; 83036; 84443; 85025

== ENCOUNTER 2022-07-12 07:44 | Day surgery (SDC) | payer MEDICARE, MEDICAID ==
[2022-07-11 11:08] LABS: Basophils # (auto) 0.1 10 ^3/uL (0-0.2); Basophils % (auto) 1.4 % (0.0-2.0); Eosinophils # (auto) 0.2 10 ^3/uL (0-0.8); Eosinophils % (auto) 2.7 % (0.0-7.0); Hematocrit 44.8 % (36.0-46.0); Hemoglobin 15.2 g/dL (12.2-16.2); Lymphocytes # (auto) 1.6 10 ^3/uL (0.4-5.4); Lymphocytes % (auto) 21.3 % (10.0-50.0); Mean Corpuscular Hemoglobin 29.6 pg (28.0-32.0); Mean Corpuscular Hgb Conc. 33.9 g/dL (32.0-36.0); Mean Corpuscular Volume 87.4 fL (80.0-100.0); Monocytes # (auto) 0.5 10 ^3/uL (0-1.3); Monocytes % (auto) 7.2 % (0.0-12.0); Neutrophils % (auto) 67.4 % (37.0-80.0); Nucleated Red Blood Cells % 0.2 %; Red Blood Cells 5.12 10^6/uL (4.0-5.20); Red Cell Distribution Width 14.8 % (11.8-14.3); White Blood Cell 7.5 10^3/uL (4.4-10.8)
[2022-07-11 11:27] LABS: Urine Bacteria NONE SEEN /hpf (None Seen); Urine Blood Negative /uL (Negative); Urine Specific Gravity 1.028 (1.001-1.035); Urine WBC 17 /hpf (0 - 5)
[2022-07-11 11:55] LABS: Albumin 3.6 g/dL (3.4-5.0); Calcium 9.9 mg/dL (8.5-10.1); Potassium 4.4 mmol/L (3.5-5.1)
[2022-07-11 11:57] LABS: BUN/Creatinine Ratio 14.5; INR 0.88 (0.9-1.15); Partial Thromboplastin Time 24.8 sec (24.6-33.4)
[2022-07-11 12:00] LABS: Bilirubin, Total 0.3 mg/dL (0.2-1.0); Total Protein 7.4 g/dL (6.4-8.2)
[~2022-07-12] VITALS: Ht 157.5 cm; Wt 88.5 kg
[2022-07-12] MEDS ORDERED: GLYCOPYRROLATE 0.2 MG/ML 1ML VIAL ONE (08:02)
[2022-07-12] MEDS ORDERED: PROPOFOL 10 MG/ML 20 ML IV ONE (08:02)
[2022-07-12] MEDS ORDERED: KETOROLAC TROMETH 30 MG/ML 1ML VIAL ONE (08:02)
[2022-07-12] MEDS ORDERED: DexAMETHasone SOD PHOS 10MG/1ML VIAL INJ ONE (08:02)
[2022-07-12] MEDS ORDERED: ONDANSETRON HCL 4 MG/2 ML VIAL ONE (08:02)
[2022-07-12] MEDS ORDERED: ceFAZolin 1GM/50ML 100 ML IV ONE (09:29)
[2022-07-12] MEDS ORDERED: CONJ ESTROGENS 0.625MG/GM VAG CRM 30GM PV ONE (09:35)
[2022-07-12] MEDS ORDERED: LIDOCAINE W/ EPINEPHRINE 2% INJ 20ML VIAL ONE (09:36)
[2022-07-12] MEDS ORDERED: ceFAZolin 1GM VL ONE (10:06)
[2022-07-12] MEDS ORDERED: ePHEDrine SULFATE 50 MG/ML AMP ONE (10:11)
[2022-07-12] MEDS ORDERED: SODIUM CHLORIDE LOCK 10 ML ONE (10:11)
[2022-07-12] MEDS ORDERED: fentaNYL CITRATE 100 MCG/2 ML VL ONE (10:16)
[2022-07-12] MEDS ORDERED: ALBUTEROL SULF 2.5 MG/0.5ML(0.5%) NEB SOLN NEB ONE (15:15)
[2022-07-12] MEDS ORDERED: ALBUTEROL MEDNEB 2.5 mg/3ml NEB ONE (15:28)
[2022-07-12 16:00] VITALS: BP 125/53
== END 2022-07-12 16:26 | disposition home or self-care (01) ==
LOC: SUR 07:44
PROVIDERS: ATTEND Urology
DX: N39.3 Stress incontinence (female) (male) (principal); N81.10 Cystocele, unspecified; I10 Essential (primary) hypertension; E78.5 Hyperlipidemia, unspecified; F41.8 Other specified anxiety disorders; I25.709 Atherosclerosis of coronary artery bypass graft(s), unspecified, with unspecified angina pectoris; J44.9 Chronic obstructive pulmonary disease, unspecified; Z83.3 Family history of diabetes mellitus; Z79.1 Long term (current) use of non-steroidal anti-inflammatories (NSAID); Z95.1 Presence of aortocoronary bypass graft; Z82.49 Family history of ischemic heart disease and other diseases of the circulatory system; E11.9 Type 2 diabetes mellitus without complications; Z79.82 Long term (current) use of aspirin; Z90.710 Acquired absence of both cervix and uterus; Z79.899 Other long term (current) drug therapy; Z98.890 Other specified postprocedural states; Z20.822 Contact with and (suspected) exposure to COVID-19
CPT/HCPCS: 36415; 57135; 57240; 57282; 57288; 80053; 81001; 82962; 85025; 85610; 85730; 87086; 87088; 87186; 88305; 94640; J0690; J1100; J1885; J2405; J2704; J3010; U0003

== ENCOUNTER → 2022-07-26 | Outpatient (CLI) | payer MEDICARE, MEDICAID | END | disposition home or self-care (01) | LOC: LAB 15:08 | PROVIDERS: ATTEND Urology | DX: N39.0 Urinary tract infection, site not specified (principal) | CPT/HCPCS: 87086 ==

== ENCOUNTER → 2022-11-19 | Outpatient (CLI) | payer MEDICARE, MEDICAID ==
[~2022-11-19] MED LIST changes: +IBUP-1455 PO; -IBUP800T26 PO
[2022-11-19 14:03] LABS: Potassium 3.5 mmol/L (3.5-5.1)
[2022-11-19 14:17] LABS: Albumin 3.5 g/dL (3.4-5.0); BUN/Creatinine Ratio 18.7 (10.0-20.0); Bilirubin, Total 0.4 mg/dL (0.2-1.0); Calcium 8.9 mg/dL (8.5-10.1); Total Protein 6.9 g/dL (6.4-8.2)
== END | disposition home or self-care (01) ==
LOC: LAB 12:36
PROVIDERS: ATTEND Internal Medicine
DX: E11.22 Type 2 diabetes mellitus with diabetic chronic kidney disease (principal); N18.9 Chronic kidney disease, unspecified; E11.42 Type 2 diabetes mellitus with diabetic polyneuropathy; E78.5 Hyperlipidemia, unspecified
CPT/HCPCS: 36415; 80053; 80061; 83036

== ENCOUNTER 2022-11-22 08:10 | Day surgery (SDC) | payer MEDICARE, MEDICAID ==
[2022-11-19 12:55] LABS: Basophils # (auto) 0.1 10 ^3/uL (0-0.2); Eosinophils # (auto) 0.3 10 ^3/uL (0-0.8); Eosinophils % (auto) 2.9 % (0.0-7.0); Hematocrit 43.9 % (36.0-46.0); Hemoglobin 14.5 g/dL (12.2-16.2); Lymphocytes # (auto) 1.8 10 ^3/uL (0.4-5.4); Lymphocytes % (auto) 19.7 % (10.0-50.0); Mean Corpuscular Hemoglobin 28.7 pg (28.0-32.0); Mean Corpuscular Volume 86.9 fL (80.0-100.0); Monocytes # (auto) 0.7 10 ^3/uL (0-1.3); Monocytes % (auto) 7.5 % (0.0-12.0); Neutrophils # (auto) 6.3 10 ^3/uL (1.6-8.6); Neutrophils % (auto) 68.9 % (37.0-80.0); Red Blood Cells 5.06 10^6/uL (4.0-5.20); Red Cell Distribution Width 14.8 % (11.8-14.3); White Blood Cell 9.1 10^3/uL (4.4-10.8)
[2022-11-19 13:11] LABS: INR 0.95 (0.9-1.15); Partial Thromboplastin Time 24.5 sec (24.6-33.4); Urine Bacteria FEW /hpf (None Seen); Urine Blood Negative /uL (Negative); Urine Mucus FEW (None Seen); Urine Specific Gravity 1.028 (1.001-1.035); Urine WBC 8 /hpf (0 - 5); Urine WBC Clumps PRESENT /hpf (None Seen)
[2022-11-19 14:17] LABS: Calcium 9.1 mg/dL (8.5-10.1); Potassium 3.6 mmol/L (3.5-5.1)
[2022-11-19 14:32] LABS: Albumin 3.5 g/dL (3.4-5.0); BUN/Creatinine Ratio 18.9 (10.0-20.0); Bilirubin, Total 0.3 mg/dL (0.2-1.0)
[~2022-11-22] VITALS: Ht 157.5 cm; Wt 90.7 kg
[2022-11-22] MEDS ORDERED: MIDAZOLAM HCL 2MG/2ML 2ml VIAL (1mg/ml) ONE (08:59)
[2022-11-22] MEDS ORDERED: fentaNYL CITRATE 100 MCG/2 ML VL ONE (08:59)
[2022-11-22] MEDS ORDERED: CIPROFLOXACIN 400MG/200ML 200 ML IV ONE (08:59)
[2022-11-22] MEDS ORDERED: ONDANSETRON HCL 4 MG/2 ML VIAL ONE (09:08)
[2022-11-22] MEDS ORDERED: PROPOFOL 10 MG/ML 20 ML IV ONE (09:08)
[2022-11-22] MEDS ORDERED: SODIUM CHLORIDE LOCK 10 ML ONE (09:08)
[2022-11-22] MEDS ORDERED: METOCLOPRAMIDE HCL 5MG/ml INJ 2ml VIAL IV PRN (09:15)
[2022-11-22] MEDS ORDERED: HYDROmorphone HCL 2 MG/ML VL/or syr IV PRN ×2 (09:15)
[2022-11-22] MEDS ORDERED: MORPHINE SULFATE INJ 2 MG/ml SYRG IV PRN (09:15)
[2022-11-22] MEDS ORDERED: cefTRIAXone SOD 1,000 MG VL ONE (09:42)
[2022-11-22 14:35] VITALS: BP 106/56
== END 2022-11-22 14:40 | disposition home or self-care (01) ==
LOC: SUR 08:10
PROVIDERS: ATTEND Urology
DX: N39.3 Stress incontinence (female) (male) (principal); E11.9 Type 2 diabetes mellitus without complications; I10 Essential (primary) hypertension; Z79.899 Other long term (current) drug therapy; Z79.84 Long term (current) use of oral hypoglycemic drugs; Z98.890 Other specified postprocedural states
CPT/HCPCS: 36415; 51715; 74018; 76000; 80053; 81001; 82962; 85025; 85610; 85730; 87086; 87088; 87186; J0696; J0744; J2250; J2405; J2704; J3010; J7030; L8606

== ENCOUNTER → 2023-03-12 | Outpatient (CLI) | payer MEDICARE, MEDICAID ==
[2023-03-12 14:16] LABS: Chloride 103 mmol/L (98-107); Potassium 3.8 mmol/L (3.5-5.1); Sodium 141 mmol/L (136-145)
[2023-03-12 14:17] LABS: Anion Gap 5 (5-15); Carbon Dioxide 33 mmol/L (20-30)
[2023-03-12 14:18] LABS: Calcium 9.7 mg/dL (8.5-10.1)
[2023-03-12 14:22] LABS: BUN/Creatinine Ratio 10.4 (10.0-20.0); Blood Urea Nitrogen 8 mg/dL (9-23); Glucose 130 mg/dL (74-106)
== END | disposition home or self-care (01) ==
LOC: LAB 13:51
PROVIDERS: ATTEND Internal Medicine
DX: E11.22 Type 2 diabetes mellitus with diabetic chronic kidney disease (principal); N18.9 Chronic kidney disease, unspecified; Z79.899 Other long term (current) drug therapy
CPT/HCPCS: 36415; 80048; 82306; 83036

== ENCOUNTER → 2023-05-27 | Emergency (ER) | payer MEDICARE, MEDICAID ==
[~2023-05-27] MED LIST changes: +EMPA1TAB3 PO; +GLIP10TA9 PO; +LEVO500T91 PO; +METR-344 PO; +OMEP-448 PO; +PANT40T PO; +PREG200C19 PO; +ROSU1TAB15 PO; +SUCR1SUS26 PO; +TIRZ5INJ SC
== END | disposition left against medical advice (07) ==
LOC: EDBD 15:19 → ER 15:19 → EDUNIT# 15:19
DX: R11.10 Vomiting, unspecified (principal); Z53.21 Procedure and treatment not carried out due to patient leaving prior to being seen by health care provider

== ENCOUNTER → 2023-07-12 | Outpatient (CLI) | payer MEDICARE, MEDICAID ==
[~2023-07-12] MED LIST changes: -EMPA1TAB PO; -OMEP-448 PO; -PANT40TA2 PO; -ROSU1TAB14 PO
[2023-07-12 14:27] LABS: Basophils # (auto) 0.1 10 ^3/uL (0-0.2); Basophils % (auto) 1.4 % (0.0-2.0); Eosinophils # (auto) 0.2 10 ^3/uL (0-0.8); Eosinophils % (auto) 2.5 % (0.0-7.0); Hematocrit 45.8 % (36.0-46.0); Hemoglobin 14.9 g/dL (12.2-16.2); Lymphocytes # (auto) 1.5 10 ^3/uL (0.4-5.4); Lymphocytes % (auto) 16.8 % (10.0-50.0); Mean Corpuscular Hemoglobin 28.6 pg (28.0-32.0); Mean Corpuscular Hgb Conc. 32.5 g/dL (32.0-36.0); Mean Corpuscular Volume 87.9 fL (80.0-100.0); Monocytes # (auto) 0.7 10 ^3/uL (0-1.3); Monocytes % (auto) 7.2 % (0.0-12.0); Neutrophils # (auto) 6.6 10 ^3/uL (1.6-8.6); Neutrophils % (auto) 72.1 % (37.0-80.0); Red Cell Distribution Width 15.9 % (11.8-14.3); White Blood Cell 9.1 10^3/uL (4.4-10.8)
[2023-07-12 14:42] LABS: Urine Bacteria MOD /hpf (None Seen); Urine Blood Negative /uL (Negative); Urine Clarity HAZY (Clear); Urine Color Yellow (Yellow); Urine Mucus FEW (None Seen); Urine Protein, UAD Negative (Negative); Urine Specific Gravity 1.031 (1.001-1.035); Urine Urobilinogen Normal (Negative); Urine WBC 91 /hpf (0 - 5); Urine WBC Clumps PRESENT /hpf (None Seen)
== END | disposition home or self-care (01) ==
LOC: LAB 14:15
PROVIDERS: ATTEND Internal Medicine
DX: E11.42 Type 2 diabetes mellitus with diabetic polyneuropathy (principal); R32 Unspecified urinary incontinence
CPT/HCPCS: 36415; 81001; 82043; 83036; 85025

== ENCOUNTER → 2023-11-15 | Outpatient (CLI) | payer MEDICARE, MEDICAID ==
[~2023-11-15] MED LIST changes: +PARO-181 PO; -PARO30TA99 PO; -ROSU1TAB15 PO; +ROSU40TA47 PO
[2023-11-15 14:38] LABS: Alanine Aminotransferase 15 U/L (7-40); Albumin 4.4 g/dL (3.2-4.8); Alkaline Phosphatase 123 U/L (46-116); Anion Gap 5 (5-15); Aspartate Aminotransferase 11 U/L (13-40); BUN/Creatinine Ratio 11.3 (10.0-20.0); Blood Urea Nitrogen 8 mg/dL (9-23); Calcium 9.5 mg/dL (8.5-10.1); Carbon Dioxide 28 mmol/L (20-30); Chloride 105 mmol/L (98-107); Cholesterol 107 mg/dL (< 200); Glucose 163 mg/dL (74-106); HDL Cholesterol 34 mg/dL (40-59); LDL Cholesterol 42 mg/dL (< 100); Potassium 4.3 mmol/L (3.5-5.1); Sodium 138 mmol/L (136-145); Triglycerides 236 mg/dL (< 150)
[2023-11-15 14:39] LABS: Bilirubin, Total 0.5 mg/dL (0.2-1.0); Total Protein 6.8 g/dL (5.7-8.2)
[2023-11-15 14:40] LABS: Free T4 (Free Thyroxine) 0.98 ng/dL (0.89-1.76)
== END | disposition home or self-care (01) ==
LOC: LAB 13:33
PROVIDERS: ATTEND Internal Medicine
DX: Z12.11 Encounter for screening for malignant neoplasm of colon (principal); E11.42 Type 2 diabetes mellitus with diabetic polyneuropathy; E78.5 Hyperlipidemia, unspecified; I10 Essential (primary) hypertension; Z79.899 Other long term (current) drug therapy
CPT/HCPCS: 36415; 80053; 80061; 82274; 82306; 82607; 83036; 84439; 84443

== ENCOUNTER → 2024-01-07 | Outpatient (CLI) | payer MEDICARE, MEDICAID | END | disposition home or self-care (01) | LOC: XYW 10:37 | PROVIDERS: ATTEND Student in an Organized Health Care Education/Training Program | DX: I51.89 Other ill-defined heart diseases (principal); R00.2 Palpitations | CPT/HCPCS: 93306 ==

== ENCOUNTER → 2024-02-19 | Outpatient (CLI) | payer MEDICARE, MEDICAID ==
[2024-02-19 09:12] LABS: Basophils # (auto) 0.1 10 ^3/uL (0-0.2); Basophils % (auto) 1.3 % (0.0-2.0); Eosinophils # (auto) 0.2 10 ^3/uL (0-0.8); Eosinophils % (auto) 2.3 % (0.0-7.0); Hematocrit 48.3 % (36.0-46.0); Hemoglobin 15.9 g/dL (12.2-16.2); Lymphocytes # (auto) 1.3 10 ^3/uL (0.4-5.4); Lymphocytes % (auto) 19.4 % (10.0-50.0); Mean Corpuscular Hemoglobin 28.7 pg (28.0-32.0); Monocytes # (auto) 0.5 10 ^3/uL (0-1.3); Neutrophils # (auto) 4.8 10 ^3/uL (1.6-8.6); Nucleated Red Blood Cells % 0.1 %; Platelet Count (auto) 270 10^3/uL (140-450); Red Blood Cells 5.54 10^6/uL (4.0-5.20); Red Cell Distribution Width 16.2 % (11.8-14.3); White Blood Cell 6.8 10^3/uL (4.4-10.8)
[2024-02-19 09:22] LABS: Anion Gap 8 (5-15); Carbon Dioxide 29 mmol/L (20-30); Chloride 105 mmol/L (98-107); Sodium 142 mmol/L (136-145)
[2024-02-19 09:24] LABS: Calcium 9.9 mg/dL (8.7-10.4)
[2024-02-19 09:28] LABS: BUN/Creatinine Ratio 12.5 (10.0-20.0); Blood Urea Nitrogen 11 mg/dL (9-23); Glucose 223 mg/dL (74-106)
[2024-02-19 09:46] LABS: INR 0.97 (0.9-1.15); Partial Thromboplastin Time 25.1 SEC (24.5-34.5); Prothrombin Time 10.3 sec (9.3-11.8)
[2024-02-19 09:52] LABS: Urine Bacteria FEW /hpf (None Seen); Urine Blood Negative /uL (Negative); Urine Clarity Clear (Clear); Urine Color Light-Yellow (Yellow); Urine Protein, UAD Negative (Negative); Urine Specific Gravity 1.036 (1.001-1.035); Urine Urobilinogen Normal (Negative); Urine WBC 13 /hpf (0 - 5)
== END | disposition home or self-care (01) ==
LOC: LAB 08:34
PROVIDERS: ATTEND Internal Medicine
DX: E11.42 Type 2 diabetes mellitus with diabetic polyneuropathy (principal); I50.9 Heart failure, unspecified; Z79.899 Other long term (current) drug therapy
CPT/HCPCS: 36415; 80048; 81001; 82043; 83036; 85025; 85610; 85730; 87086

== ENCOUNTER 2024-04-29 21:10 | Emergency (ER) | payer MEDICARE, MEDICAID ==
[~2024-04-29] VITALS: Ht 157.5 cm; Wt 86.3 kg
[2024-04-29 21:27] VITALS: BP 126/67; PULSE 118; RESP 18; O2SAT 91
--- NOTE | 2024-04-29 22:10 | DVH ---
XY R SHOULDER 2+ VIEW XRAY INDICATION: pain TECHNICAL DATA:2 views were obtained of the right shoulder. COMPARISON: None FINDINGS: There is no fracture or focal bone abnormality. The glenohumeral joint is normally maintained. The ac romioclavicular joint appears normal. The humeral head is not high riding. Adjacent soft tissues are within normal limits. Degenerative changes are noted involving the visualized spine. IMPRESSION: No acute fracture or dislocation of the right shoulder.
--- NOTE | 2024-04-29 22:11 | DVH ---
XY R HUMERUS XRAY, INDICATION: fall TECHNICAL DATA: Frontal and lateral views were obtained of the right humerus. COMPARISON: None Findings / IMPRESSION: No acute fracture or dislocation. Small ossification adjacent to the greater tuberosity concerning fo r calcific tendinitis versus avulsion fracture.
--- NOTE | 2024-04-29 22:20 | ED.PDOC ---
Musculoskeletal HPI Comments 74-year-old female complaining of right shoulder pain right upper arm pain after having a fall today at 3:00 a.m.. Patient states no loss of consciousness dye hit her head. States she did have a fall week ago on the right side the pain was not as bad after having a fall today pain is much worse. Chief Complaint: Fall Injury Time Seen by MD: 21:22 Primary Care Provider: RADHA Reviewed Notes: Nurses Notes Allergies: Coded Allergies: NO KNOWN ALLERGIES (Unverified , 01/24/24) Home Meds Active Scripts Metronidazole (Flagyl) 500 Mg Tab, 1 TAB PO TID for 3 Days, #9 TAB Prov:JEFERSON GARCIA MD 05/31/23 Levofloxacin Hemihydrate (LEVAQUIN 500 MG) 500 Mg Tab, 1 TAB PO DAILY, #3 TAB Prov:JEFERSON GARCIA MD 05/31/23 Sucralfate (CARAFATE SUSP) 1 Gm/10 Ml Ss, 1 GM PO QIDACHS for 30 Days, #60 ML Prov:JEFERSON GARCIA MD 05/31/23 Pantoprazole Sodium Sesquihydr (Pantoprazole Sodium) 40 Mg Tab, 40 MG PO BID for 30 Days, #60 TAB Prov:JEFERSON GARCIA MD 05/31/23 Reported Medications Tirzepatide (Mounjaro) 5 Mg/0.5 Ml Inj, 5 MG SC QWEEKLY, INJ 05/28/23 Glipizide (Glipizide) 10 Mg Tab, 10 MG PO BID, MG 05/28/23 Pregabalin (Lyrica) 200 Mg Cap, 1 CAP PO TID, #90 CAP 05/28/23 Rosuvastatin Calcium (Rosuvastatin Calcium) 40 Mg Tab, 40 MG PO DAILY, TAB 05/28/23 Empagliflozin (Jardiance) 25 Mg Tab, 25 MG PO DAILY, TAB 05/28/23 Aspirin (Aspir-Low) 81 Mg Tab, 81 MG PO DAILY for 30 Days, MG 08/15/20 B-Complex Vitamins (Vitamin B Complex) Cap, 1 CAP PO DAILY, CAP 08/15/20 Oxybutynin Chloride (Ditropan Xl) 10 Mg Tab, 10 MG PO DAILY, TAB 08/15/20 Insulin Glargine (Basaglar Kwikpen) 100 Unit/Ml Inj, 50 UNIT SC HS, INJ 08/15/20 Carvedilol (Carvedilol) 3.125 Mg Tab, 1 TAB PO BID 07/30/20 Paroxetine HCl (Paroxetine Hydrochloride) 30 Mg Tab, 1 TAB PO DAILY 07/30/20 Albuterol Sulfate (VENTOLIN MDI) 90 Mcg Ih, 90 MCG IN Q6HP PRN for SHORTNESS OF BREATH for 30 Days, MCG 05/14/18 Ibuprofen Micronized (Ibuprofen) 800 Mg Tab, 800 MG PO PRN for MILD PAIN, TAB 05/14/18 Albuterol Sulfate (Ventolin) 2.5 Mg/3 Ml Nb, 2.5 MG NEB PRN for SHORTNESS OF BREATH 05/14/18 Cholecalciferol (VITAMIN D3) 2,000 Unit Tab, 2000 UNIT PO BID, TAB 05/14/18 Zolpidem Tartrate (Zolpidem Tartrate) 10 Mg Tab, 1 TAB PO HS, #30 TAB 2 Refills 05/14/18 Ferrous Sulfate (Ferrous Sulfate) 325 Mg Tab, 325 MG PO BID 05/19/11 Mode of Arrival: Ambulatory Past Medical History PAST MEDICAL HISTORY: CAD, COPD, DM, High Lipids, TIA Surgical History: Appendectomy, CABG, Hysterectomy 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 History Family History Family History: No family hx of DM, No family hx of Heart perez Social History Smoker: Non-Smoker Alcohol: Denies ETOH Use Drugs: Denies Drug Use Lives In: Home Constitutional: denies: chills, diaphoresis, fatigue, fever, malaise, sweats, weakness, others EENTM: denies: blurred vision, double vision, ear bleeding, ear discharge, ear drainage, ear pain, ear ringing, eye pain, eye redness, hearing loss, mouth pain, mouth swelling, nasal discharge, nose bleeding, nose congestion, nose pain, photophobia, tearing, throat pain, throat swelling, voice changes, others Respiratory: denies: cough, hemoptysis, orthopnea, SOB at rest, shortness of breath, SOB with excertion, stridor, wheezing, others Cardiovascular: denies: chest pain, dizzy spells, diaphoresis, Dyspnea on exertion, edema, irregular heart beat, left arm pain, lightheadedness, palpitations, PND, syncope, others Gastrointestinal: denies: abdomen distended, abdominal pain, blood streaked bowels, constipated, diarrhea, dysphagia, difficulty swallowing, hematemesis, melena, nausea, poor appetite, poor fluid intake, rectal bleeding, rectal pain, vomiting, others Genitourinary: denies: abnormal vagina bleeding, burning, dyspareunia, dysuria, flank pain, frequency, hematuria, incontinence, pain, , vagina discharge, urgency, others Neurological: denies: dizziness, fainting, headache, left sided numbness, left sided weakness, numbness, paresthesia, pre-existing deficit, right sided numb ness, right sided weakness, seizure, speech problems, tingling, tremors, weakness, others Musculoskeletal: reports: muscle pain, muscle stiffness; denies: back pain, gout, joint pain, joint swelling, neck pain, others Physical Exam General Appearance: No Apparent Distress, Normal HEENT: Normal ENT Inspection, Pharynx Normal, TMs Normal Neck: Full Range of Motion, Non-Tender, Normal, Normal Inspection Respiratory: Chest Non-Tender, Lungs Clear, No Accessory Muscle Use, No Respiratory Distress, Normal Breath Sounds Cardiovascular: No Edema, No JVD, No Murmur, No Gallop, Normal Peripheral Pulses, Regular Rate/Rhythm Breast Exam: Deferred Gastrointestinal: No Organomegaly, Non Tender, No Pulsatile Mass, Normal Bowel Sounds, Soft Genitalia: Deferred Pelvic: Deferred Rectal: Deferred Extremities: No calf tenderness, Normal capillary refill, Normal inspection, Normal range of motion, Non-tender, No pedal edema Musculoskeletal : Location: Right Extremity Location: Shoulder (Tender to palpation over the right deltoid. Limited range of motion due to pain. No obvious crepitus or deformity noted.) Apperance: Normal Neurologic: Alert, flower buncher or picker II-XII nml as Tested, No Motor Deficits, Normal Affect, Normal Mood, No Sensory Deficits Cerebellar Function: Normal Reflexes: Normal Skin: Dry, Normal Color, Warm Lymphatic: No Adenopathy Was a procedure done? Was a procedure done?: No Differential Diagnosis EXT Differential Diagnosis: Fracture, Sprain, Dislocation X-Ray, Labs, Meds, VS Vital Signs Date Time Temp Pulse Resp B/P (MAP) Pulse Ox O2 Delivery O2 Flow Rate FiO2 04/29/24 21:27 97.8 118 18 126/67 (86) 91 Lab Test 04/29/24 21:27 Range/Units POC Glucose 193 H 70-106 mg/dl X-Ray, Labs, Meds, VS Comment IMAGING: X-RAYS AND CT SCANS WERE REVIEWED AND INTERPRETED BY THIS PROVIDER, IMAGING SHOWS NO FRACTURES AND NO PATHOLOGICAL DISEASE. PENDING RADIOLOGY REVIEW. LABORATORY: LABS REVIEWED AND INTERPRETED BY THIS PROVIDER. NO SIGNIFICANT ABNORMALITIES NOTED. PATIENT HAS PRIOR MEDICAL VISITS REVIEWED. MED RECONCILIATION PERFORMED VITAL SIGNS REVIEWED Time of 1ST Reevaluation: 22:20 Reevaluation 1ST: Improved Patient Education/Counseling: Diagnosis, Treatment, Need For Follow Up (PATIENT ADVISED TO FOLLOW-UP IN THE EMERGENCY ROOM IN THE NEXT 24 TO 48 HOURS IF SYMPTOMS DO NOT IMPROVE. ADVISED FOLLOW-UP WITH PCP IN THE NEXT 3 TO 5 DAYS. PATIENT VERBALIZED UNDERSTANDING. ) Family Education/Counseling: Diagnosis Departure 1 Departure Time of Disposition: 22:19 Impression: Primary Impression: Contusion of right shoulder Qualified Codes: S40.011A - Contusion of right shoulder, initial encounter Disposition: HOME / SELF CARE / HOMELESS Condition: Fair Discharged With: Self Critical Care Note Critical Care Time?: No Stability Stability form required: No Heart Score Heart Score: Heart Score Response (Comments) Value History N/A 0 EKG N/A 0 Age N/A 0 Risk Factors N/A 0 Troponin N/A 0 Total 0 VICTOR M CONNELLP Apr 29, 2024 22:20
[2024-04-29] MEDS: HYDROcodone-ACET 5/325MG TAB PO ONE (22:38)
[2024-04-29] MEDS ORDERED: HYDR-4902 PO (22:47)
== END 2024-04-29 22:53 | disposition home or self-care (01) ==
LOC: ER 21:10
DX: S40.011A Contusion of right shoulder, initial encounter (principal); J44.9 Chronic obstructive pulmonary disease, unspecified; E11.9 Type 2 diabetes mellitus without complications; Z79.82 Long term (current) use of aspirin; Z79.84 Long term (current) use of oral hypoglycemic drugs; Z79.85 Long-term (current) use of injectable non-insulin antidiabetic drugs; Z79.899 Other long term (current) drug therapy; Z86.73 Personal history of transient ischemic attack (TIA), and cerebral infarction without residual deficits; Z90.49 Acquired absence of other specified parts of digestive tract; Z90.710 Acquired absence of both cervix and uterus; Z95.1 Presence of aortocoronary bypass graft
CPT/HCPCS: 73030; 73060

== ENCOUNTER → 2024-07-06 | Outpatient (CLI) | payer MEDICARE, MEDICAID ==
[~2024-07-06] MED LIST changes: +HYDR-4902 PO
[2024-07-06 16:08] LABS: Basophils # (auto) 0.1 10 ^3/uL (0-0.2); Basophils % (auto) 1.3 % (0.0-2.0); Eosinophils # (auto) 0.2 10 ^3/uL (0-0.8); Eosinophils % (auto) 1.9 % (0.0-7.0); Hematocrit 48.1 % (36.0-46.0); Hemoglobin 15.9 g/dL (12.2-16.2); Lymphocytes # (auto) 1.4 10 ^3/uL (0.4-5.4); Lymphocytes % (auto) 15.9 % (10.0-50.0); Mean Corpuscular Hgb Conc. 33.1 g/dL (32.0-36.0); Mean Corpuscular Volume 87.7 fL (80.0-100.0); Monocytes # (auto) 0.5 10 ^3/uL (0-1.3); Monocytes % (auto) 5.8 % (0.0-12.0); Neutrophils # (auto) 6.7 10 ^3/uL (1.6-8.6); Neutrophils % (auto) 75.1 % (37.0-80.0); Nucleated Red Blood Cells % 0.1 %; Platelet Count (auto) 303 10^3/uL (140-450); Red Blood Cells 5.49 10^6/uL (4.0-5.20)
[2024-07-06 16:48] LABS: Alanine Aminotransferase 19 U/L (7-40); Albumin 4.4 g/dL (3.2-4.8); Anion Gap 10 (5-15); Aspartate Aminotransferase 15 U/L (13-40); BUN/Creatinine Ratio 13.2 (10.0-20.0); Blood Urea Nitrogen 10 mg/dL (9-23); Calcium 9.9 mg/dL (8.7-10.4); Carbon Dioxide 26 mmol/L (20-31); Chloride 105 mmol/L (98-107); Potassium 3.6 mmol/L (3.5-5.1); Sodium 141 mmol/L (136-145)
[2024-07-06 16:49] LABS: Bilirubin, Total 0.6 mg/dL (0.2-1.0); Total Protein 6.5 g/dL (5.7-8.2)
[2024-07-06 16:50] LABS: Alkaline Phosphatase 128 U/L (46-116); Cholesterol 239 mg/dL (< 200); Glucose 200 mg/dL (74-106); LDL Cholesterol 172 mg/dL (< 100); Triglycerides 220 mg/dL (< 150)
[2024-07-06 17:41] LABS: HDL Cholesterol 44 mg/dL (40-59)
== END | disposition home or self-care (01) ==
LOC: LAB 15:29
PROVIDERS: ATTEND Internal Medicine
DX: I10 Essential (primary) hypertension (principal); E11.42 Type 2 diabetes mellitus with diabetic polyneuropathy; E55.9 Vitamin D deficiency, unspecified; E53.8 Deficiency of other specified B group vitamins
CPT/HCPCS: 36415; 80053; 80061; 82306; 82607; 83036; 84443; 85025

== ENCOUNTER → 2024-10-15 | Outpatient (CLI) | payer MEDICARE, MEDICAID ==
[2024-10-15 13:51] LABS: Basophils # (auto) 0.1 10 ^3/uL (0-0.2); Basophils % (auto) 0.8 % (0.0-2.0); Eosinophils # (auto) 0.1 10 ^3/uL (0-0.8); Eosinophils % (auto) 1.4 % (0.0-7.0); Hematocrit 43.9 % (36.0-46.0); Hemoglobin 14.7 g/dL (12.2-16.2); Lymphocytes # (auto) 1.1 10 ^3/uL (0.4-5.4); Lymphocytes % (auto) 12.8 % (10.0-50.0); Mean Corpuscular Hemoglobin 29.4 pg (28.0-32.0); Mean Corpuscular Hgb Conc. 33.6 g/dL (32.0-36.0); Mean Corpuscular Volume 87.7 fL (80.0-100.0); Monocytes # (auto) 0.7 10 ^3/uL (0-1.3); Neutrophils # (auto) 6.5 10 ^3/uL (1.6-8.6); Nucleated Red Blood Cells % 0.1 %; Platelet Count (auto) 255 10^3/uL (140-450); Red Cell Distribution Width 14.2 % (11.8-14.3); White Blood Cell 8.5 10^3/uL (4.4-10.8)
[2024-10-15 14:03] LABS: Alanine Aminotransferase 11 U/L (7-40); Albumin 4.7 g/dL (3.2-4.8); Alkaline Phosphatase 115 U/L (46-116); Anion Gap 11 (5-15); Blood Urea Nitrogen 13 mg/dL (9-23); Calcium 10.2 mg/dL (8.7-10.4); Carbon Dioxide 28 mmol/L (20-31); Chloride 100 mmol/L (98-107); Cholesterol 116 mg/dL (< 200); LDL Cholesterol 50 mg/dL (< 100); Potassium 4.2 mmol/L (3.5-5.1); Sodium 139 mmol/L (136-145)
[2024-10-15 14:04] LABS: Bilirubin, Total 0.6 mg/dL (0.2-1.0)
[2024-10-15 14:05] LABS: Aspartate Aminotransferase 12 U/L (13-40); Glucose 236 mg/dL (74-106); HDL Cholesterol 36 mg/dL (40-59); Triglycerides 214 mg/dL (< 150)
[2024-10-15 14:52] LABS: Creatinine, Urine 38.51 mg/dL (30.0-125.0)
[2024-10-15 14:55] LABS: Micro Albumin < 3.0 mg/L (<30.0)
== END | disposition home or self-care (01) ==
LOC: LAB 13:31
PROVIDERS: ATTEND Licensed Practical Nurse
DX: E11.42 Type 2 diabetes mellitus with diabetic polyneuropathy (principal); E55.9 Vitamin D deficiency, unspecified
CPT/HCPCS: 36415; 80053; 80061; 82043; 82306; 82570; 83036; 85025

== ENCOUNTER 2024-11-28 22:25 | Inpatient (IN) | payer OTHER, MEDICARE, MEDICAID ==
[~2024-11-28] VITALS: Ht 157.5 cm; Wt 91.3 kg
[2024-11-28 22:42] LABS: Hematocrit 43.0 % (36.0-46.0); Hemoglobin 14.0 g/dL (12.2-16.2); Mean Corpuscular Hemoglobin 28.7 pg (28.0-32.0); Mean Corpuscular Volume 87.8 fL (80.0-100.0); Nucleated Red Blood Cells % 0.1 %
[2024-11-28 22:53] LABS: Chloride 101 mmol/L (98-107); Potassium 4.1 mmol/L (3.5-5.1); Sodium 139 mmol/L (136-145)
[2024-11-28 22:54] LABS: Anion Gap 10 (5-15); Carbon Dioxide 28 mmol/L (20-31)
[2024-11-28 22:55] LABS: Calcium 10.2 mg/dL (8.7-10.4)
[2024-11-28 22:59] LABS: BUN/Creatinine Ratio 9.3 (10.0-20.0); Blood Urea Nitrogen 10 mg/dL (9-23)
--- NOTE | 2024-11-28 23:03 | ED.PDOC ---
HPI Comments 74-year-old female with a history of CAD status post CABG, hypertension, diabetes, dyslipidemia and COPD on home O2, brought in by daughter for evaluation of chest pain. Patient states she has been feeling generally weak since this morning with fever, chills, headache, nausea and vomiting. Daughter reports patient began complaining of midsternal chest pain, constant, stabbing, nonradiating, associated with shortness of breath. Blood sugar upon arrival was 438. Patient denies diarrhea. She has had dysuria. Chief Complaint: Chest Pain Time Seen by MD: 23:00 Primary Care Provider: RADHA Reviewed Notes: Nurses Notes Allergies: Coded Allergies: NO KNOWN ALLERGIES (Unverified , 01/24/24) Home Meds Active Scripts Hydrocodone-Acetaminophen (Hydrocodone Bitartrate/AC 5-325 mg) 1 Tab Tab, 1 TAB PO BID PRN, #24 TAB Prov:VICTOR M CONNELL 04/29/24 Metronidazole (Flagyl) 500 Mg Tab, 1 TAB PO TID for 3 Days, #9 TAB Prov:JEFERSON GARCIA MD 05/31/23 Levofloxacin Hemihydrate (LEVAQUIN 500 MG) 500 Mg Tab, 1 TAB PO DAILY, #3 TAB Prov:JEFERSON GARCIA MD 05/31/23 Sucralfate (CARAFATE SUSP) 1 Gm/10 Ml Ss, 1 GM PO QIDACHS for 30 Days, #60 ML Prov:JEFERSON GARCIA MD 05/31/23 Pantoprazole Sodium Sesquihydr (Pantoprazole Sodium) 40 Mg Tab, 40 MG PO BID for 30 Days, #60 TAB Prov:JEFERSON GARCIA MD 05/31/23 Reported Medications Tirzepatide (Mounjaro) 5 Mg/0.5 Ml Inj, 5 MG SC QWEEKLY, INJ 05/28/23 Glipizide (Glipizide) 10 Mg Tab, 10 MG PO BID, MG 05/28/23 Pregabalin (Lyrica) 200 Mg Cap, 1 CAP PO TID, #90 CAP 05/28/23 Rosuvastatin Calcium (Rosuvastatin Calcium) 40 Mg Tab, 40 MG PO DAILY, TAB 05/28/23 Empagliflozin (Jardiance) 25 Mg Tab, 25 MG PO DAILY, TAB 05/28/23 Aspirin (Aspir-Low) 81 Mg Tab, 81 MG PO DAILY for 30 Days, MG 08/15/20 B-Complex Vitamins (Vitamin B Complex) Cap, 1 CAP PO DAILY, CAP 08/15/20 Oxybutynin Chloride (Ditropan Xl) 10 Mg Tab, 10 MG PO DAILY, TAB 08/15/20 Insulin Glargine (Basaglar Kwikpen) 100 Unit/Ml Inj, 50 UNIT SC HS, INJ 08/15/20 Carvedilol (Carvedilol) 3.125 Mg Tab, 1 TAB PO BID 07/30/20 Paroxetine HCl (Paroxetine Hydrochloride) 30 Mg Tab, 1 TAB PO DAILY 07/30/20 Albuterol Sulfate (VENTOLIN MDI) 90 Mcg Ih, 90 MCG IN Q6HP PRN for SHORTNESS OF BREATH for 30 Days, MCG 05/14/18 Ibuprofen Micronized (Ibuprofen) 800 Mg Tab, 800 MG PO PRN for MILD PAIN, TAB 05/14/18 Albuterol Sulfate (Ventolin) 2.5 Mg/3 Ml Nb, 2.5 MG NEB PRN for SHORTNESS OF BREATH 05/14/18 Cholecalciferol (VITAMIN D3) 2,000 Unit Tab, 2000 UNIT PO BID, TAB 05/14/18 Zolpidem Tartrate (Zolpidem Tartrate) 10 Mg Tab, 1 TAB PO HS, #30 TAB 2 Refills 05/14/18 Ferrous Sulfate (Ferrous Sulfate) 325 Mg Tab, 325 MG PO BID 05/19/11 Information Source: Patient Mode of Arrival: Ambulatory Severity: Moderate Timing: Hours Duration: Since onset Prehospital treatment: None Location: Substernal Radiation: No Radiation Quality: Stabbing Onset: With Light Exertion Cardiac Risk Factors: Hyperlipidemia, Diabetes History of: Similar pain in past Associated Signs and Symptoms: SOB Past Medical History PAST MEDICAL HISTORY: Arthritis, CAD, COPD (Home oxygen at 3 L/min), DM, High Lipids, TIA Past Medical History (Other): Chronic back pain Surgical History: Appendectomy, CABG, Hysterectomy Surgical History (Other): Bladder surgery, back surgery FINAL CLEANER History: No Pertinent FINAL CLEANER History Family History Family History: No family hx of DM, No family hx of Heart perez Social History Smoker: Non-Smoker Alcohol: Denies ETOH Use Drugs: Denies Drug Use Lives In: Home Constitutional: reports: chills, fatigue, fever, weakness; denies: diaphoresis, malaise, sweats, others EENTM: denies: blurred vision, double vision, ear bleeding, ear discharge, ear drainage, ear pain, ear ringing, eye pain, eye redness, hearing loss, mouth pain, mouth swelling, nasal discharge, nose bleeding, nose congestion, nose pain, photophobia, tearing, throat pain, throat swelling, voice changes, others Respiratory: reports: cough, SOB at rest, shortness of breath; denies: hemoptysis, orthopnea, SOB with excertion, stridor, wheezing, others Cardiovascular: reports: chest pain, dizzy spells; denies: diaphoresis, Dyspnea on exertion, edema, irregular heart beat, left arm pain, lightheadedness, palpitations, PND, syncope, others Gastrointestinal: reports: nausea, vomiting; denies: abdomen distended, abdominal pain, blood streaked bowels, constipated, diarrhea, dysphagia, difficu lty swallowing, hematemesis, melena, poor appetite, poor fluid intake, rectal bleeding, rectal pain, others Genitourinary: denies: abnormal vagina bleeding, burning, dyspareunia, dysuria, flank pain, frequency, hematuria, incontinence, pain, , vagina discharge, urgency, others Neurological: reports: headache; denies: dizziness, fainting, left sided numbness, left sided weakness, numbness, paresthesia, pre-existing deficit, right sided numbness, right sided weakness, seizure, speech problems, tingling, tremors, weakness, others Musculoskeletal: denies: back pain, gout, joint pain, joint swelling, muscle pain, muscle stiffness, neck pain, others Integumetry: denies: bruises, change in color, change in hair/nails, dryness, laceration, lesions, lumps, rash, wounds, others Allergic/Immunocompromised: denies: Difficulty Healing, Frequent Infections, Hives, Itching, others Hematologic/Lymphatic: denies: anemia, blood clots, easy bleeding, easy bruising, swollen glands, others Endocrine: denies: excessive hunger, excessive sweating, excessive thirst, excessive urination, flushing, intolerance to cold, intolerance to heat, unexplained weight gain, unexplained weight loss, others Psychiatric: denies: anxiety, bipolar disorder, depression, hopeless, panic disorder, schizophrenia, sleepless, suicidal, others Physical Exam General Appearance: Mild Distress, Obese HEENT: Other (Pupils and face symmetric. Moist mucous membranes.) Neck: Full Range of Motion, Normal Inspection Respiratory: Decreased Breath Sounds, No Accessory Muscle Use, No Respiratory Distress Cardiovascular: No Edema, No JVD, Regular Rate/Rhythm Breast Exam: Deferred Gastrointestinal: Non Tender, Soft Genitalia: Deferred Pelvic: Deferred Rectal: Deferred Extremities: Normal inspection, Normal range of motion, Non-tender, No pedal edema Neurologic: Alert (Oriented x4), Normal Affect, Normal Mood Cerebellar Function: NOT DONE Reflexes: NOT DONE Skin: Diaphoresis, Dry, Pallor Lymphatic: NOT DONE EKG EKG : Pulse Rate (adult): 107 Cardiac Rhythm: Aflutter Comments Sinus tach, rate 107, normal GA interval, QRS 159, QTC 495, normal axis, possible old anteroseptal infarct, nonspecific T changes. Was a procedure done? Was a procedure done?: No CP Differential Dx Differential Diagnosis: Angina, Anxiety / Panic Attack, Electrolyte Disorder, Heart Failure, Hyperventilation, HI, Pulmonary Embolus Other Differential Diagnosis UTI, sepsis, among others Differential Diagnosis: CHF Differential Diagnosis: Angina, Chest Wall Pain, Costochondritis, Esophageal reflux/spasm, Gastritis, Myocardial Infarction, Pericarditis, Pneumonia X-Ray, Labs, Meds, VS Vital Signs Date Time Temp Pulse Resp B/P (MAP) Pulse Ox O2 Delivery O2 Flow Rate FiO2 11/29/24 05:00 93 21 110/45 (66) 94 11/29/24 04:37 98.2 93 24 112/62 96 3.0 32 98.2 11/29/24 04:33 96 Nasal Cannula 3.0 11/29/24 04:33 96 Nasal Cannula* 3 32 11/29/24 04:00 97.8 113 16 110/76 (87) 96 97.8 11/29/24 03:34 95 16 112/62 (79) 96 11/29/24 03:30 95 18 Room Air* 0 21 11/29/24 02:05 105/50 11/29/24 01:56 98.2 105 16 105/50 (68) 88 98.2 11/28/24 23:58 21 96 Nasal Cannula* 3 32 11/28/24 23:03 107 11/28/24 22:28 100.0 109 20 108/51 (70) 95 100.0 Lab Test 11/29/24 05:20 11/29/24 04:33 11/29/24 04:11 11/29/24 01:17 Range/Units White Blood Count 15.0 H 4.4-10.8 10^3/uL Red Blood Count 4.48 4.0-5.20 10^6/uL Hemoglobin 13.0 12.2-16.2 g/dL Hematocrit 38.8 36.0-46.0 % Mean Corpuscular Volume 86.8 80.0-100.0 fL Mean Corpuscular Hemoglobin 29.1 28.0-32.0 pg Mean Corpuscular Hemoglobin Concent 33.6 32.0-36.0 g/dL Red Cell Distribution Width 14.5 H 11.8-14.3 % Platelet Count 218 140-450 10^3/uL Mean Platelet Volume 9.7 6.9-10.8 fL Neutrophils (%) (Auto) 78.7 37.0-80.0 % Lymphocytes (%) (Auto) 12.5 10.0-50.0 % Monocytes (%) (Auto) 7.1 0.0-12.0 % Eosinophils (%) (Auto) 1.0 0.0-7.0 % Basophils (%) (Auto) 0.7 0.0-2.0 % Neutrophils # (Auto) 11.8 H 1.6-8.6 10 ^3/uL Lymphocytes # (Auto) 1.9 0.4-5.4 10 ^3/uL Monocytes # (Auto) 1.1 0-1.3 10 ^3/uL Eosinophils # (Auto) 0.1 0-0.8 10 ^3/uL Basophils # (Auto) 0.1 0-0.2 10 ^3/uL Nucleated Red Blood Cells 0.0 % Sodium Level 141 136-145 mmol/L Potassium Level 4.0 3.5-5.1 mmol/L Chloride Level 103 98-107 mmol/L Carbon Dioxide Level 29 20-31 mmol/L Anion Gap 9 5-15 Blood Urea Nitrogen 11 9-23 mg/dL Creatinine 0.84 0.550-1.02 mg/dL Glomerular Filtration Rate Calc 72 >90 mL/min BUN/Creatinine Ratio 13.1 10.0-20.0 Serum Glucose 200 H 74-106 mg/dL Calcium Level 9.1 8.7-10.4 mg/dL Total Bilirubin 0.5 0.2-1.0 mg/dL Aspartate Amino Transferase (AST) 13 <34 U/L Alanine Aminotransferase (ALT) 10 7-40 U/L Alkaline Phosphatase 86 46-116 U/L Total Protein 5.9 5.7-8.2 g/dL Albumin 3.9 3.2-4.8 g/dL Urine Color Light-yellow Yellow Urine Clarity Clear Clear Urine pH 5.0 5.0-9.0 Urine Specific [place] 1.036 H 1.001-1.035 Urine Protein Negative Negative Urine Ketones Negative Negative Urine Blood Negative Negative /uL Urine Nitrite 1+ H Negative Urine Bilirubin Negative Negative Urine Urobilinogen Normal Negative mg/dL Urine Leukocyte Esterase Negative Negative /uL Urine RBC 1 0 - 4 /hpf Urine Microscopic WBC 5 0-5 /HPF Urine Squamous Epithelial Cells Few <5 /hpf Urine Bacteria None seen None Seen /hpf Urine Glucose 4+ H Normal mg/dL Influenza Type A Antigen Negative Negative Influenza Type B Antigen Negative Negative SARS-CoV-2 Antigen (Rapid) Negative NEGATIVE Lactic Acid Level 1.8 0.4-2.0 mmol/L Troponin I High Sensitivity 6 </=34 ng/L Test 11/28/24 23:14 11/28/24 22:35 11/28/24 22:32 Range/Units Lactic Acid Level 2.7 *H 0.4-2.0 mmol/L Troponin I High Sensitivity 6 5 </=34 ng/L POC Glucose 438 *H 70-106 mg/dl White Blood Count 18.2 H 4.4-10.8 10^3/uL Red Blood Count 4.90 4.0-5.20 10^6/uL Hemoglobin 14.0 12.2-16.2 g/dL Hematocrit 43.0 36.0-46.0 % Mean Corpuscular Volume 87.8 80.0-100.0 fL Mean Corpuscular Hemoglobin 28.7 28.0-32.0 pg Mean Corpuscular Hemoglobin Concent 32.7 32.0-36.0 g/dL Red Cell Distribution Width 15.3 H 11.8-14.3 % Platelet Count 243 140-450 10^3/uL Mean Platelet Volume 10.0 6.9-10.8 fL Neutrophils (%) (Auto) 87.0 H 37.0-80.0 % Lymphocytes (%) (Auto) 7.1 L 10.0-50.0 % Monocytes (%) (Auto) 5.0 0.0-12.0 % Eosinophils (%) (Auto) 0.4 0.0-7.0 % Basophils (%) (Auto) 0.5 0.0-2.0 % Neutrophils # (Auto) 15.9 H 1.6-8.6 10 ^3/uL Lymphocytes # (Auto) 1.3 0.4-5.4 10 ^3/uL Monocytes # (Auto) 0.9 0-1.3 10 ^3/uL Eosinophils # (Auto) 0.1 0-0.8 10 ^3/uL Basophils # (Auto) 0.1 0-0.2 10 ^3/uL Nucleated Red Blood Cells 0.1 % Prothrombin Time 10.5 9.3-11.8 sec Prothrombin Time INR 0.99 0.9-1.15 Activated Partial Thromboplast Time 25.9 24.5-34.5 SEC Sodium Level 139 136-145 mmol/L Potassium Level 4.1 3.5-5.1 mmol/L Chloride Level 101 98-107 mmol/L Carbon Dioxide Level 28 20-31 mmol/L Anion Gap 10 5-15 Blood Urea Nitrogen 10 9-23 mg/dL Creatinine 1.08 H 0.550-1.02 mg/dL Glomerular Filtration Rate Calc 54 >90 mL/min BUN/Creatinine Ratio 9.3 L 10.0-20.0 Serum Glucose 420 *H 74-106 mg/dL Calcium Level 10.2 8.7-10.4 mg/dL Total Bilirubin 0.7 0.2-1.0 mg/dL Direct Bilirubin 0.3 <0.3 mg/dL Aspartate Amino Transferase (AST) 12 <34 U/L Alanine Aminotransferase (ALT) 10 7-40 U/L Alkaline Phosphatase 96 46-116 U/L B-Type Natriuretic Peptide 111.94 0-100 pg/mL Total Protein 6.4 5.7-8.2 g/dL Albumin 4.3 3.2-4.8 g/dL Lipase 27 12-53 U/L Current Medications Medications (Trade) Dose Ordered Sig/Rivas Route Start Time Stop Time Status Last Admin Acetaminophen/ Hydrocodone Bitart ([place] 5/325MG Tab) 1 tab ONCE ONCE PO 11/28/24 23:00 11/28/24 23:01 DC 11/29/24 02:03 Ondansetron HCl (Zofran) 4 mg ONCE ONCE IV 11/28/24 23:00 11/28/24 23:01 DC 11/29/24 02:05 Sodium Chloride 1,000 ml @ 1,000 mls/hr Q1H ONCE IV 11/28/24 23:00 11/28/24 23:59 DC 11/29/24 02:04 Ceftriaxone Sodium 50 ml @ 100 mls/hr ONCE ONCE IV 11/28/24 23:00 11/28/24 23:29 DC 11/29/24 02:05 Aspirin 162 mg ONCE ONCE PO 11/28/24 23:00 11/28/24 23:01 DC 11/29/24 02:04 Nitroglycerin (Nitro-Bid) 1 pkg ONCE ONCE TD 11/28/24 23:00 11/28/24 23:01 DC 11/29/24 02:05 Vancomycin HCl 200 ml @ 200 mls/hr ONCE ONCE IV 11/28/24 23:45 11/29/24 00:44 DC 11/29/24 05:15 Albuterol (Ventolin Medneb) 5 mg ONCE ONCE NEB 11/28/24 23:45 11/28/24 23:46 DC 11/28/24 23:58 Ipratropium [place] (Atrovent Medneb) 0.5 mg ONCE ONCE NEB 11/28/24 23:45 11/28/24 23:46 DC 11/28/24 23:58 Acetaminophen/ Hydrocodone Bitart ([place] 5/325MG Tab) 1 tab Q4HP PRN PO 11/29/24 04:30 11/29/24 06:45 PROCEDURE(s): CXRP - CHEST PORTABLE REASON: cp sob ORDER NUMBER(s): [id number], ACCESSION NUMBER(s): [id number] CHEST RADIOGRAPH Indication: cp sob Technique: Single frontal view of the chest was obtained COMPARISON: XY CHEST PORTABLE on DOS: 05/27/23 FINDINGS: Lines and Tubes: None Lungs: Mild patchy right basilar pulmonary infiltrate. The remaining lung zones are clear with mild diffuse increased prominence of the pulmonary vasculature noted. Pleura: No effusion. No pneumothorax. Cardiomediastinal contours: Unremarkable status post median sternotomy. Bones: Unremarkable IMPRESSION: 1. Patchy right basilar pulmonary infiltrate. 2. Mild diffuse increased prominence of the pulmonary vasculature. X-Ray, Labs, Meds, VS Comment 74-year-old female with a history of CAD status post CABG, hypertension, hyperlipidemia, diabetes COPD on home O2 presenting with fever, headache, nausea, vomiting, dysuria and chest pain Vitals remarkable for temperature 100, heart rate 109, BP 108/51 Exam remarkable for diminished breath sounds Rhythm strip independently interpreted by me: Sinus tach, rate 107, no ectopy. Chest x-ray IMPRESSION: 1. Patchy right basilar pulmonary infiltrate. 2. Mild diffuse increased prominence of the pulmonary vasculature. CBC shows WBC 18.2, comprehensive metabolic panel shows glucose 420, BNP 111.94, 2 troponins negative, lactic 2.7, UA pending Patient treated with the following in the ED: 1 L 0.9 normal saline IV bolus, [place] 5/325 mg p.o., aspirin 162 mg p.o., Nitro- Bid 1/2 inch to chest wall, Zofran 4 mg IV, Rocephin 1 g IV, vancomycin per pharmacy IV, albuterol 5 mg/Atrovent 0.5 mg nebulized On re-evaluation, patient states headache and chest pain have improved. Vitals were stable. Plan is to admit the patient for IV antibiotics, cardiology evaluation and respiratory support as needed. Time of 1ST Reevaluation: 22:56 Reevaluation 1ST: Unchanged Patient Education/Counseling: Diagnosis, Treatment Family Education/Counseling: No Family Present SEPSIS Sepsis Screen Date sepsis recognized/suspect: Nov 29, 2024 Time Sepsis recognized/suspect: 00:01 Recent Procedure: No On Antibiotic Therapy: No Heart Rate >90: Yes Physician Orders Electrocardigram (11/28/24 22:28) Chest Portable (11/28/24 22:34) Urine Bacterial Culture (11/28/24 22:54) Blood Culture (11/28/24 22:54) Accucheck (11/28/24 23:33) Notify Md If Map <65 Or Bp<90 (11/28/24 23:33) If Map<65 Start Vasopressor (11/28/24 23:33) Sepsis Fluid Exclusion: (11/28/24 23:33) Aspirin Tablet (11/29/24 10:00) Carvedilol Tablet (Coreg Tablet) (11/29/24 10:00) Albuterol Medneb (Ventolin Medneb) (11/29/24 04:30) Ipratropium Medneb (Atrovent Medneb) (11/29/24 04:30) Ceftriaxone 1gm/50ml D5w (Rocephin) (11/29/24 21:00) Vancomycin Per Pharmacy (11/29/24 04:30) Famotidine Injection (Pepcid Injection) (11/29/24 10:00) Consistent Carb(Ccho)Diabetes (11/29/24 Breakfast) Atorvastatin (Lipitor) (11/29/24 22:00) Glucose Blood (Accu-Chek Comfort Curve T (11/29/24 08:00) Insulin R (Human) (Insulin R) (11/29/24 08:00) Dextrose 50% Syringe (11/29/24 04:30) Allergies (11/29/24 04:17) Code Status (11/29/24 04:17) Sodium Chloride Lock (Saline Lock Ns) (11/29/24 06:00) Oxygen Per Hour (11/29/24 04:17) Hydrocodone-Acet 5/325mg Tab (Cebolla 5/32 (11/29/24 04:30) Ondansetron Hcl (Zofran) (11/29/24 04:30) Docusate Sodium Capsule (Colace Capsule) (11/29/24 04:30) Complete Blood Count (11/30/24 04:00) Comprehensive Metabolic Panel (11/30/24 04:00) Condition: Serious (11/29/24 04:17) Acetaminophen Tablet (Tylenol Tablet) (11/29/24 04:30) Bedrest With Bathroom Privileg (11/29/24 04:17) Sequential Compression Device (11/29/24 ) Vital Signs Date Time Temp Pulse Resp B/P (MAP) Pulse Ox O2 Delivery O2 Flow Rate FiO2 11/29/24 05:00 93 21 110/45 (66) 94 11/29/24 04:37 98.2 93 24 112/62 96 3.0 32 98.2 11/29/24 04:33 96 Nasal Cannula 3.0 11/29/24 04:33 96 Nasal Cannula* 3 32 11/29/24 04:00 97.8 113 16 110/76 (87) 96 97.8 11/29/24 03:34 95 16 112/62 (79) 96 11/29/24 03:30 95 18 Room Air* 0 21 11/29/24 02:05 105/50 11/29/24 01:56 98.2 105 16 105/50 (68) 88 98.2 11/28/24 23:58 21 96 Nasal Cannula* 3 32 11/28/24 23:03 107 11/28/24 22:28 100.0 109 20 108/51 (70) 95 100.0 Laboratory Tests Test 11/28/24 22:32 11/28/24 23:14 11/29/24 01:17 11/29/24 05:20 White Blood Count 18.2 10^3/uL (4.4-10.8) H 15.0 10^3/uL (4.4-10.8) H Lactic Acid Level 2.7 mmol/L (0.4-2.0) *H 1.8 mmol/L (0.4-2.0) Medications Medications Dose Ordered Sig/Rivas Route Start Time Stop Time Status Last Admin Dose Admin Acetaminophen/ Hydrocodone Bitart 1 tab ONCE ONCE PO 11/28/24 23:00 11/28/24 23:01 DC 11/29/24 02:03 Acetaminophen/ Hydrocodone Bitart 1 tab Q4HP PRN PO 11/29/24 04:30 11/29/24 06:45 Albuterol 5 mg ONCE ONCE NEB 11/28/24 23:45 11/28/24 23:46 DC 11/28/24 23:58 Aspirin 162 mg ONCE ONCE PO 11/28/24 23:00 11/28/24 23:01 DC 11/29/24 02:04 Ceftriaxone Sodium 50 ml @ 100 mls/hr ONCE ONCE IV 11/28/24 23:00 11/28/24 23:29 DC 11/29/24 02:05 Ipratropium [place] 0.5 mg ONCE ONCE NEB 11/28/24 23:45 11/28/24 23:46 DC 11/28/24 23:58 Nitroglycerin 1 pkg ONCE ONCE TD 11/28/24 23:00 11/28/24 23:01 DC 11/29/24 02:05 Ondansetron HCl 4 mg ONCE ONCE IV 11/28/24 23:00 11/28/24 23:01 DC 11/29/24 02:05 Sodium Chloride 1,000 ml @ 1,000 mls/hr Q1H ONCE IV 11/28/24 23:00 11/28/24 23:59 DC 11/29/24 02:04 Vancomycin HCl 200 ml @ 200 mls/hr ONCE ONCE IV 11/28/24 23:45 11/29/24 00:44 DC 11/29/24 05:15 Reassessment Post Fluid SEPSIS FOCUS EXAM(REASSESSMENT Sepsis reassessment focused exam completed. Date: 11/29/24 Time 01:01 Pulse Location: Radial Pulse Strength: Normal Capillary Refill Exam: < 3 seconds Skin Temperature: Warm Skin Moisture: Dry Skin Tugor: WNL Skin Color: Pale Fingernail Color: WNL Departure 1 Departure Time of Disposition: 23:51 Impression: Primary Impression: Chest pain with high risk for cardiac etiology Additional Impressions: Pneumonia Sepsis COPD exacerbation Disposition: ADMITTED INPATIENT Admit to: Tele Condition: Guarded Critical Care Note Critical Care Time?: Yes (45 min-critical care time only) Critical care comment: Critical care time including multiple bedside re-evaluations, review of lab and imaging studies, and discussion of the case with the admitting provider. Patient is high risk for hemodynamic and/or respiratory decompensation. Stability Stability form required: No Heart Score Heart Score: Heart Score Response (Comments) Value History Moderate Suspicious 1 EKG Repolarization Disturb 1 Age >65 2 Risk Factors >3 or Hx ASHD 2 Troponin Normal limit 0 Total 6 I personally scribed for SAMANTHA SAMUELS MD ([email or web address]) on 11/28/24 at 23:03. Electronically submitted by Jason White ([facility]). SAMANTHA SAMUELS MD Nov 28, 2024 23:03
[2024-11-28 23:17] LABS: Glucose 420 mg/dL (74-106)
[2024-11-28 23:24] LABS: Alanine Aminotransferase 10.0 U/L (7-40); Albumin 4.3 g/dL (3.2-4.8); Alkaline Phosphatase 96.0 U/L (46-116); Bilirubin, Direct 0.3 mg/dL (<0.3); Bilirubin, Total 0.7 mg/dL (0.2-1.0); Total Protein 6.4 g/dL (5.7-8.2)
--- NOTE | 2024-11-28 23:35 | DVH ---
CHEST RADIOGRAPH Indication: cp sob Technique: Single frontal view of the chest was obtained COMPARISON: XY CHEST PORTABLE on DOS: 05/27/23 FINDINGS: Lines and Tubes: None Lungs: Mild patchy right basilar pulmonary infiltrate. The remaining lung zones are clear with mild d iffuse increased prominence of the pulmonary vasculature noted. Pleura: No effusion. No pneumothorax. Cardiomediastinal contours: Unremarkable status post median sternotomy. Bones: Unremarkable IMPRESSION: 1. Patchy right basilar pulmonary infiltrate. 2. Mild diffuse increased prominence of the pulmonary vasculature.
[2024-11-28 23:44] LABS: Lipase 27.0 U/L (12-53)
[2024-11-28 23:48] LABS: Lactic Acid w/Reflex 2.7 mmol/L (0.4-2.0)
[2024-11-28] MEDS: IPRATROPIUM BROM 0.5 MG/2.5ML INH SOL NEB ONE (23:58)
[2024-11-28] MEDS: ALBUTEROL SULF 2.5 MG/0.5ML(0.5%) NEB SOLN NEB ONE (23:58)
[2024-11-29] VITALS (10 sets, daily range): BP systolic 102–112; BP diastolic 53–67; PULSE 93–98; RESP 18–24; TEMP 97.5–98.2; O2SAT 94–97
[2024-11-29] LABS: INR 0.99 (0.9-1.15); Partial Thromboplastin Time 25.9 SEC (24.5-34.5); Prothrombin Time 10.5 sec (9.3-11.8)
[2024-11-29] MEDS: HYDROcodone-ACET 5/325MG TAB PO ONE (02:03)
[2024-11-29] MEDS: SODIUM CHLORIDE 0.9% 1,000 ML IV ONE (02:04)
[2024-11-29] MEDS: cefTRIAXone 1GM/50ML D5W 50 ML IV ONE (02:05)
[2024-11-29] MEDS: ONDANSETRON HCL 4 MG/2 ML VIAL IV ONE (02:05)
[2024-11-29] MEDS: NITROGLYCERIN 2% OINT 1GM PKG TD ONE (02:05)
[2024-11-29] MEDS: VANCOMYCIN 1GM/200ML PM 200 ML IV ONE ×2 (03:40→05:15)
[2024-11-29] MEDS ORDERED: IPRATROPIUM BROM 0.5 MG/2.5ML INH SOL NEB PRN (04:30)
[2024-11-29] MEDS ORDERED: DEXTROSE (50%) 50ML SYRG IV PRN (04:30)
[2024-11-29] MEDS ORDERED: VANCOMYCIN PER PHARMACY 0 MG IV SCH (04:30)
[2024-11-29] MEDS ORDERED: DOCUSATE SOD 100 MG CAP PO PRN (04:30)
[2024-11-29] MEDS ORDERED: ALBUTEROL SULF 2.5 MG/0.5ML(0.5%) NEB SOLN NEB PRN (04:30)
[2024-11-29] MEDS ORDERED: ONDANSETRON HCL 4 MG/2 ML VIAL IV PRN (04:30)
[2024-11-29 05:06] LABS: COVID19 ANTIGEN SOFIA FIA NEGATIVE (NEGATIVE)
[2024-11-29 05:06] LABS: Urine Protein, UAD Negative (Negative)
[2024-11-29] MEDS: SODIUM CHLOR 0.9% PF (SALINE LOCK) 10ML VIAL/SYR IV SCH (05:31)
[2024-11-29 05:39] LABS: Hematocrit 38.8 % (36.0-46.0); Hemoglobin 13.0 g/dL (12.2-16.2); Mean Corpuscular Hemoglobin 29.1 pg (28.0-32.0); Mean Corpuscular Volume 86.8 fL (80.0-100.0); Nucleated Red Blood Cells % 0.0 %
[2024-11-29] MEDS ORDERED: MORPHINE SULFATE INJ 2 MG/ml SYRG IV PRN (05:45)
[2024-11-29] MEDS ORDERED: NITROGLYCERIN 0.4 MG SL TAB SL PRN (05:45)
--- NOTE | 2024-11-29 05:53 | DVHHP2 ---
History of Present Illness Reason for Visit: Chest pain with high risk for cardiac etiology History of Present Illness The patient is a 74-year-old female with multiple past medical history including COPD, arthritis, Coronary artery disease, DM, and TIA who presented to [facility] ED with complaint of chest pain. Patient reports she has been experiencing generalized weakness associated with midsternal chest pain, constant, stabbing sensation, nonradiating, shortness of breaths, fever, chills, headache, nausea, and vomiting, getting worse that prompted this visit. Patient was seen and evaluated in the ED, laboratory data shows WBC 18.2, platelets 243, sodium 139, potassium 4.1, BUN 10, creatinine 1.08, glucose 420, calcium 10.2, BNP 111.94, lipase 27, troponin 6, lactic acid 2.7 trending down to 1.8, blood pressure 112/62, heart rate 95, temperature 98.2 F, O2 saturation 96% on oxygen. Chest x-ray revealing patchy right bibasilar pulmonary infiltrates, mild diffuse increased prominence of the pulmonary vasculature. Patient was started on IV antibiotic regimen vancomycin, given aspirin, please see medication orders section in the computer. On my assessment, patient denies chest pain at this moment, no headache, no dizziness, no diaphoresis, currently on oxygen, no diarrhea, no nausea, no vomiting, no fever, no chills. Patient was admitted for further evaluation and medical management. Past Medical History Arthritis, CAD, COPD (Home oxygen at 3 L/min), DM, High Lipids, TIA, Chronic back pain Past Surgical History Appendectomy, CABG, Hysterectomy, Bladder surgery, back surgery Family History Reviewed, noncontributory to the management of this case. Past Social History The patient lives at home, denies smoking, alcohol or illicit drugs abuse. Review of Systems Constitutional: Yes: Fever, Chills, Weakness, Other (Fatigue); No: Sweats, Malaise Eyes: No: Pain, Vision change, Conjunctivae inflammation, Eyelid inflammation, Other, Redness ENT: No: Ear pain, Ear discharge, Nose pain, Nose discharge, Nose congestion, Mouth pain, Mouth swelling, Throat pain, Throat swelling, Other Respiratory: Cough, Shortness of breath, Other (SOB at rest); No: Dry, SOB with excertion, Wheezing, Hemoptysis, Pleuritic Pain, Sputum, Wheezing Cardiovascular: Chest Pain; No: Palpitations, Orthopnea, Paroxysmal Noc. Dyspnea, Edema, Lt Headedness, Other Gastrointestinal: Nausea, Vomiting; No: Abdominal Pain, Diarrhea, Constipation, Melena, Hematochezia, Other Genitourinary: No Dysuria, No Frequency, No Incontinence, No Hematuria, No Retention, No Other Musculoskeletal: No: other, neck pain, shoulder pain, arm pain, back pain, hand pain, leg pain, foot pain Skin: No: Rash, Lesions, Jaundice, Bruising, Other Neurological: No: Weakness, Numbness, Incoordination, Change in speech, Con fusion, Seizures, Other Allergies: Coded Allergies: NO KNOWN ALLERGIES (Unverified , 01/24/24) Medications Current Medications Medications Dose Ordered Sig/Rivas Route Start Time Stop Time Status Last Admin Dose Admin Aspirin 81 mg DAILY PO 11/29/24 10:00 Carvedilol 3.125 mg Q12HR PO 11/29/24 10:00 Albuterol 2.5 mg Q4HPRN PRN NEB 11/29/24 04:30 Ipratropium [place] 0.5 mg Q4HPRN PRN NEB 11/29/24 04:30 Ceftriaxone Sodium 50 ml @ 100 mls/hr Q24H IV 11/29/24 21:00 Vancomycin HCl 0 ml @ 0 mls/hr UD IV 11/29/24 04:30 UNV Famotidine 20 mg BID IV 11/29/24 10:00 Atorvastatin Calcium 20 mg HS PO 11/29/24 22:00 Diagnostic Test (Pha) 1 strip IQ4HR 11/29/24 08:00 Insulin Human Regular IQ4HR SC 11/29/24 08:00 Dextrose 50 ml UD PRN IV 11/29/24 04:30 Sodium Chloride 10 ml Q8HR IV 11/29/24 06:00 11/29/24 05:31 10 ML Acetaminophen/ Hydrocodone Bitart 1 tab Q4HP PRN PO 11/29/24 04:30 Ondansetron HCl 4 mg Q4HP PRN IV 11/29/24 04:30 Docusate Sodium 100 mg BIDPRN PRN PO 11/29/24 04:30 Acetaminophen 650 mg Q6HP PRN PO 11/29/24 04:30 Exam Vital Signs Vital Signs Date Time Temp Pulse Resp B/P (MAP) Pulse Ox O2 Delivery O2 Flow Rate FiO2 11/29/24 04:37 98.2 93 24 112/62 96 3.0 32 98.2 11/29/24 04:33 Nasal Cannula General Appearance: Alert, Oriented X3, Cooperative, No acute distress HEENT: Atraumatic, PERRLA, EOMI, Mucous membr. moist/pink Respiratory: Normal air movement, Other (Diminished breath sounds) Cardiovascular: Regular rate, Normal S1, Normal S2, No murmurs Abdominal: Normal bowel sounds, Soft, No tenderness, No hepatospenomegaly, No masses Extremities: No clubbing, No cyanosis, No edema, Normal pulses, No tenderness/swelling Skin: No rashes, No breakdown, No significant lesion Neuro: Normal speech, Normal tone, Sensation intact, Cranial nerves 3-12 NL, Reflexes 2+, Other (Generalized weakness) Psych/Mental Status: Mental status NL, Mood NL Labs/Xrays Labs Test 11/29/24 05:20 11/29/24 04:33 11/29/24 04:11 11/29/24 01:17 Range/Units Urine Color Light-yellow Yellow Urine Clarity Clear Clear Urine pH 5.0 5.0-9.0 Urine Specific [place] 1.036 H 1.001-1.035 Urine Protein Negative Negative Urine Ketones Negative Negative Urine Blood Negative Negative /uL Urine Nitrite 1+ H Negative Urine Bilirubin Negative Negative Urine Urobilinogen Normal Negative mg/dL Urine Leukocyte Esterase Negative Negative /uL Urine RBC 1 0 - 4 /hpf Urine Microscopic WBC 5 0-5 /HPF Urine Squamous Epithelial Cells Few <5 /hpf Urine Bacteria None seen None Seen /hpf Urine Glucose 4+ H Normal mg/dL Influenza Type A Antigen Negative Negative Influenza Type B Antigen Negative Negative SARS-CoV-2 Antigen (Rapid) Negative NEGATIVE Lactic Acid Level 1.8 0.4-2.0 mmol/L Troponin I High Sensitivity 6 </=34 ng/L Test 11/28/24 22:35 11/28/24 22:32 Range/Units POC Glucose 438 *H 70-106 mg/dl Eosinophils (%) (Auto) 0.4 0.0-7.0 % Eosinophils # (Auto) 0.1 0-0.8 10 ^3/uL Basophils # (Auto) 0.1 0-0.2 10 ^3/uL Nucleated Red Blood Cells 0.1 % Prothrombin Time 10.5 9.3-11.8 sec Prothrombin Time INR 0.99 0.9-1.15 Activated Partial Thromboplast Time 25.9 24.5-34.5 SEC Direct Bilirubin 0.3 <0.3 mg/dL B-Type Natriuretic Peptide 111.94 0-100 pg/mL Lipase 27 12-53 U/L [facility]: [id number]: [id number] : 1950 LOC: ER ROOM / BED: / AGE / SEX: 74 / F ADM STATUS: REG ER SERVICE ORDERING PHYSICIAN: SAMANTHA SAMUELS MD PROCEDURE(s): CXRP - CHEST PORTABLE REASON: cp sob ORDER NUMBER(s): [id number], ACCESSION NUMBER(s): [id number] CHEST RADIOGRAPH Indication: cp sob Technique: Single frontal view of the chest was obtained COMPARISON: XY CHEST PORTABLE on DOS: 05/27/23 FINDINGS: Lines and Tubes: None Lungs: Mild patchy right basilar pulmonary infiltrate. The remaining lung zones are clear with mild diffuse increased prominence of the pulmonary vasculature noted. Pleura: No effusion. No pneumothorax. Cardiomediastinal contours: Unremarkable status post median sternotomy. Bones: Unremarkable IMPRESSION: 1. Patchy right basilar pulmonary infiltrate. 2. Mild diffuse increased prominence of the pulmonary vasculature. Assessment/Plan Assessment/Plan Chest pain with high risk for cardiac etiology Pneumonia, unspecified organism Sepsis, unspecified organism COPD with acute exacerbation Uncontrolled diabetes mellitus Generalized weakness Plan 1. Admit to telemetry units 2. Breathing treatment 3. Pain control management 4. IV antibiotic management 5. Management of fluids and electrolytes 6. Consultation for hospitalist 7. Diagnostic test chest x-ray 8. DVT prophylaxis-on aspirin 9. Repeat labs CBC, CMP in a.m. 10. Home medication reviewed and reconciled 11. Continue with current medical management 12. Treatment plan discussed with patient and RN. Patient verbalized understanding. Plan discussed with: Patient, Other (RN) My Orders Orders - ANGELA MARY DNP Procedure Category Date Status Time Complete Blood Count LAB 11/29/24 In Process 04:17 Comprehensive LAB 11/29/24 In Process Metabolic Panel 04:17 Aspirin Tablet PHA 11/29/24 In Process 10:00 Carvedilol Tablet PHA 11/29/24 In Process (Coreg Tablet) 10:00 Albuterol Medneb PHA 11/29/24 In Process (Ventolin Medneb) 04:30 Ipratropium Medneb PHA 11/29/24 In Process (Atrovent Medneb) 04:30 Ceftriaxone 1gm/50ml PHA 11/29/24 In Process D5w (Rocephin) 21:00 Vancomycin Per PHA 11/29/24 Pending Pharmacy 04:30 Famotidine Injection PHA 11/29/24 In Process (Pepcid Injection) 10:00 Consistent DIET 11/29/24 Transmitted Carb(Ccho)Diabetes Breakfast Atorvastatin (Lipitor) PHA 11/29/24 In Process 22:00 Glucose Blood PHA 11/29/24 In Process (Accu-Chek Comfort 08:00 Insulin R (Human) PHA 11/29/24 In Process (Insulin R) 08:00 Dextrose 50% Syringe PHA 11/29/24 In Process 04:30 Allergies DEVI 11/29/24 In Process 04:17 Code Status CODE 11/29/24 Transmitted 04:17 Sodium Chloride Lock PHA 11/29/24 In Process (Saline Lock Ns) 06:00 Oxygen Per Hour RT 11/29/24 Transmitted 04:17 Hydrocodone-Acet PHA 11/29/24 In Process 5/325mg Tab (Primrose 04:30 Ondansetron Hcl PHA 11/29/24 In Process (Zofran) 04:30 Docusate Sodium PHA 11/29/24 In Process Capsule (Colace 04:30 Complete Blood Count LAB 11/30/24 Verified 04:00 Comprehensive LAB 11/30/24 Verified Metabolic Panel 04:00 Condition: Serious DEVI 11/29/24 In Process 04:17 Acetaminophen Tablet PHA 11/29/24 In Process (Tylenol Tablet) 04:30 Bedrest With Bathroom DEVI 11/29/24 In Process Privileg 04:17 Sequential DEVI 11/29/24 In Process Compression Device Problem List: (1) Chest pain with high risk for cardiac etiology (2) Pneumonia, unspecified organism (3) Sepsis, unspecified organism (4) Uncontrolled diabetes mellitus (5) COPD with acute exacerbation (6) Generalized weakness Date of Service: Nov 29, 2024 Billing Provider: ANGELA MARY DNP Common Visit Codes: [id number] INP/OBS CARE (HIGH) ANGELA MARY [facility] Nov 29, 2024 05:53
[2024-11-29 05:54] LABS: Alanine Aminotransferase 10 U/L (7-40); Albumin 3.9 g/dL (3.2-4.8); Alkaline Phosphatase 86 U/L (46-116); Anion Gap 9 (5-15); BUN/Creatinine Ratio 13.1 (10.0-20.0); Bilirubin, Total 0.5 mg/dL (0.2-1.0); Blood Urea Nitrogen 11 mg/dL (9-23); Calcium 9.1 mg/dL (8.7-10.4); Carbon Dioxide 29 mmol/L (20-31); Chloride 103 mmol/L (98-107); Potassium 4.0 mmol/L (3.5-5.1); Sodium 141 mmol/L (136-145); Total Protein 5.9 g/dL (5.7-8.2)
[2024-11-29 05:55] LABS: Glucose 200 mg/dL (74-106)
[2024-11-29] MEDS: HYDROcodone-ACET 5/325MG TAB PO PRN (06:45)
--- NOTE | 2024-11-29 07:31 | ECG ---
[facility] Test Date: 2024-11-28 Test Time: 22:38:25 Pat Name: MINH MATOS Department: ED Room: 0293T Gender: F Capacitor Tester: JANINE : 1950 Requested By: SAMANTHA ORTEGA Order Number: [id number] Reading MD: Alfredo Crenshaw Measurements Intervals [place] Rate: 107 P: 0 RI: 0 QRS: 106 QRSD: 159 T: 207 QT: 371 QTc: 495 Interpretive Statements Right and left arm electrode reversal, interpretation assumes no reversal Atrial flutter with predominant 3:1 AV block Ventricular premature complex Nonspecific intraventricular conduction delay Abnormal T, consider ischemia, lateral leads Electronically Signed On 12-04-2024 9:36:50 PDT by Alfredo Crenshaw Please click the below link to view image of tracing.
[2024-11-29] MEDS: ACCU-CHEK COMFORT CURVE STRIP VI SCH (08:00)
[2024-11-29] MEDS: InsuLIN REG 1unit/0.01ml Soln (100units/ml) SC SCH (08:26)
[2024-11-29] MEDS: CARVEDILOL 3.125 MG TAB PO SCH (10:00)
[2024-11-29] MEDS: FAMOTIDINE (10MG/ML) 2ML VL IV SCH (10:00)
--- NOTE | 2024-11-29 12:56 | DVHPN2 ---
Reviewed: Care Plan, H&P, Labs, Medications, Previous Orders, Radiology Changes from previous H/P or p: No Changes Eyes: No Pain, No Vision change, No Conjunctivae inflammation, No Eyelid inflammation, No Other, No Redness ENT: No Ear pain, No Ear discharge, No Nose pain, No Nose discharge, No Nose congestion, No Mouth pain, No Mouth swelling, No Throat pain, No Throat swelling, No Other Cardiovascular: Chest Pain; No Palpitations, No Orthopnea, No Paroxysmal Noc. Dyspnea, No Edema, No Lt Headedness, No Other Respiratory: Cough; No Dry; Shortness of breath; No SOB with excertion, No Wheezing, No Hemoptysis, No Pleuritic Pain, No Sputum; Other (SOB at rest) Gastrointestinal: Nausea, Vomiting; No Abdominal Pain, No Diarrhea, No Constipation, No Melena, No Hematochezia, No Other Genitourinary: No Dysuria, No Frequency, No Incontinence, No Hematuria, No Retention, No Other Musculoskeletal: No other, No neck pain, No shoulder pain, No arm pain, No back pain, No hand pain, No leg pain, No foot pain Skin: No Rash, No Lesions, No Jaundice, No Bruising, No Other Objective Vitals Vital Signs Date Time Temp Pulse Resp B/P (MAP) Pulse Ox O2 Delivery O2 Flow Rate FiO2 11/29/24 10:06 93 15 107/47 (67) 95 11/29/24 08:45 Nasal Cannula 3.0 11/29/24 08:45 32 11/29/24 07:30 98.5 98.5 Intake/Output Intake and Output 11/29/24 07:00 Intake Total 200 ml Balance 200 ml Intake IV Total 200 ml Medications Current Medications Medications Dose Ordered Sig/Rivas Route Start Time Stop Time Status Last Admin Dose Admin Aspirin 81 mg DAILY PO 11/29/24 10:00 11/29/24 10:00 81 MG Carvedilol 3.125 mg Q12HR PO 11/29/24 10:00 Albuterol 2.5 mg Q4HPRN PRN NEB 11/29/24 04:30 Ipratropium [place] 0.5 mg Q4HPRN PRN NEB 11/29/24 04:30 Ceftriaxone Sodium 50 ml @ 100 mls/hr Q24H IV 11/29/24 21:00 Vancomycin HCl 0 ml @ 0 mls/hr UD IV 11/29/24 04:30 Famotidine 20 mg BID IV 11/29/24 10:00 11/29/24 10:00 20 MG Atorvastatin Calcium 20 mg HS PO 11/29/24 22:00 Diagnostic Test (Pha) 1 strip IQ4HR 11/29/24 08:00 11/29/24 12:00 1 STRIP Insulin Human Regular IQ4HR SC 11/29/24 08:00 11/29/24 12:11 3 UNITS Dextrose 50 ml UD PRN IV 11/29/24 04:30 Sodium Chloride 10 ml Q8HR IV 11/29/24 06:00 11/29/24 05:31 10 ML Acetaminophen/ Hydrocodone Bitart 1 tab Q4HP PRN PO 11/29/24 04:30 11/29/24 06:45 1 TAB Ondansetron HCl 4 mg Q4HP PRN IV 11/29/24 04:30 Docusate Sodium 100 mg BIDPRN PRN PO 11/29/24 04:30 Acetaminophen 650 mg Q6HP PRN PO 11/29/24 04:30 Nitroglycerin 0.4 mg Q5MINP PRN SL 11/29/24 05:45 Morphine Sulfate 2 mg Q30M PRN IV 11/29/24 05:45 Vancomycin HCl 150 ml @ 150 mls/hr Q12H IV 11/29/24 17:00 Laboratory Results Laboratory Tests 11/29/24 05:20 Chemistry Test 11/28/24 22:32 11/29/24 05:20 Albumin 4.3 g/dL (3.2-4.8) 3.9 g/dL (3.2-4.8) Calcium Level 10.2 mg/dL (8.7-10.4) 9.1 mg/dL (8.7-10.4) Total Protein 6.4 g/dL (5.7-8.2) 5.9 g/dL (5.7-8.2) Coagulation Test 11/28/24 22:32 Prothrombin Time 10.5 sec (9.3-11.8) Prothrombin Time INR 0.99 (0.9-1.15) Activated Partial Thromboplast Time 25.9 SEC (24.5-34.5) Lipid panel Test 11/28/24 22:32 Lipase 27 U/L (12-53) Cardiac Markers Test 11/28/24 22:32 B-Type Natriuretic Peptide 111.94 pg/mL (0-100) LFT Test 11/28/24 22:32 11/29/24 05:20 Alanine Aminotransferase (ALT) 10 U/L (7-40) 10 U/L (7-40) Alkaline Phosphatase 96 U/L (46-116) 86 U/L (46-116) Aspartate Amino Transferase (AST) 12 U/L (<34) 13 U/L (<34) Direct Bilirubin 0.3 mg/dL (<0.3) Total Bilirubin 0.7 mg/dL (0.2-1.0) 0.5 mg/dL (0.2-1.0) Urinalysis Test 11/29/24 04:33 Urine Color Light-yellow (Yellow) Urine Clarity Clear (Clear) Urine pH 5.0 (5.0-9.0) Urine Specific [place] 1.036 (1.001-1.035) Urine Protein Negative (Negative) Urine Ketones Negative (Negative) Urine Blood Negative /uL (Negative) Urine Nitrite 1+ (Negative) H Urine Bilirubin Negative (Negative) Urine Urobilinogen Normal mg/dL (Negative) Urine Leukocyte Esterase Negative /uL (Negative) Urine RBC 1 /hpf (0 - 4) Urine Microscopic WBC 5 /HPF (0-5) Urine Squamous Epithelial Cells Few /hpf (<5) Urine Bacteria None seen /hpf (None Seen) Urine Glucose 4+ mg/dL (Normal) H Labs and/or images reviewed: Labs reviewed by me, Image(s) reviewed by me Assessment/Plan Assessment/Plan Chest pain with with multiple cardiac risk factors, troponin negative, treatment per ACS protocol, consult for social science analyst Dr.M Mata Right lower lobe community-acquired Pneumonia Gram-positive versus Gram- negative: Rocephin azithromycin Sepsis secondary to pneumonia Acute hypoxic respiratory failure: Oxygen by nasal cannula Acute COPD exacerbation Uncontrolled diabetes with a glucose 420: Aggressive insulin sliding scale Lactic acidosis Acute metabolic encephalopathy Shirin test negative Flu test negative Hypercholesterolemia Coronary artery disease History of CABG Generalized weakness History of TIA Time spent 70 minutes Advanced care planning time 20 minutes Patient is full code Patient is hospice revoked Plan discussed with: Patient Date of Service: Nov 29, 2024 Billing Provider: ELISEO PELAEZ MD Common Visit Codes: [id number] CARE 30-74 MIN ELISEO PELAEZ MD Nov 29, 2024 12:56
[2024-11-29] MEDS: AZITHROMYCIN 500MG/ 250ML 250 ML IV ONE (13:30)
[2024-11-29] MEDS ORDERED: VANCOMYCIN 750mg/150ml 150 ML IV SCH (17:00)
[2024-11-29] MEDS: cefTRIAXone 1GM/50ML D5W 50 ML IV SCH (21:36)
[2024-11-29] MEDS: ATORVASTATIN 20 MG TAB PO SCH (21:37)
--- NOTE | 2024-11-29 23:56 | DVHINCON2 ---
Date of service: Nov 29, 2024 Referring Physician Anup Reason for Consultation Chest pain History of Present Illness This is a 74-year-old female with a past medical history of CAD status post CABG, hypertension, diabetes, dyslipidemia and COPD on home O2 who was brought in by her daughter with a complaint of chest pain. Patient states she has been feeling generally weak since this morning with associated fever, chills, headache, dysuria, nausea and vomiting. Patient also reported midsternal chest pain, constant, stabbing, nonradiating, associated with shortness of breath. Blood sugar upon arrival was 438. Chest x-ray showed patchy right basilar pulmonary infiltrate, mild diffuse increased prominence of the pulmonary vasculature. WBC 18.2. BNP 111. Troponin negative. Patient was admitted to the hospital. I am asked to consult on this patient. Family History: Cardiovascular disease G8 MOTHER G8 FATHER Diabetes mellitus G8 MOTHER G8 FATHER Family history: Cardiovascular disease Allergies: Coded Allergies: NO KNOWN ALLERGIES (Unverified , 01/24/24) Home Meds Active Scripts Hydrocodone-Acetaminophen (Hydrocodone Bitartrate/AC 5-325 mg) 1 Tab Tab, 1 TAB PO BID PRN, #24 TAB Prov:VICTOR M CONNELL 04/29/24 Metronidazole (Flagyl) 500 Mg Tab, 1 TAB PO TID for 3 Days, #9 TAB Prov:JEFERSON GARCIA MD 05/31/23 Levofloxacin Hemihydrate (LEVAQUIN 500 MG) 500 Mg Tab, 1 TAB PO DAILY, #3 TAB Prov:JEFERSON GARCIA MD 05/31/23 Sucralfate (CARAFATE SUSP) 1 Gm/10 Ml Ss, 1 GM PO QIDACHS for 30 Days, #60 ML Prov:JEFERSON GARCIA MD 05/31/23 Pantoprazole Sodium Sesquihydr (Pantoprazole Sodium) 40 Mg Tab, 40 MG PO BID for 30 Days, #60 TAB Prov:JEFERSON GARCIA MD 05/31/23 Reported Medications Tirzepatide (Mounjaro) 5 Mg/0.5 Ml Inj, 5 MG SC QWEEKLY, INJ 05/28/23 Glipizide (Glipizide) 10 Mg Tab, 10 MG PO BID, MG 05/28/23 Pregabalin (Lyrica) 200 Mg Cap, 1 CAP PO TID, #90 CAP 05/28/23 Rosuvastatin Calcium (Rosuvastatin Calcium) 40 Mg Tab, 40 MG PO DAILY, TAB 05/28/23 Empagliflozin (Jardiance) 25 Mg Tab, 25 MG PO DAILY, TAB 05/28/23 Aspirin (Aspir-Low) 81 Mg Tab, 81 MG PO DAILY for 30 Days, MG 08/15/20 B-Complex Vitamins (Vitamin B Complex) Cap, 1 CAP PO DAILY, CAP 08/15/20 Oxybutynin Chloride (Ditropan Xl) 10 Mg Tab, 10 MG PO DAILY, TAB 08/15/20 Insulin Glargine (Basaglar Kwikpen) 100 Unit/Ml Inj, 50 UNIT SC HS, INJ 08/15/20 Carvedilol (Carvedilol) 3.125 Mg Tab, 1 TAB PO BID 07/30/20 Paroxetine HCl (Paroxetine Hydrochloride) 30 Mg Tab, 1 TAB PO DAILY 07/30/20 Albuterol Sulfate (VENTOLIN MDI) 90 Mcg Ih, 90 MCG IN Q6HP PRN for SHORTNESS OF BREATH for 30 Days, MCG 05/14/18 Ibuprofen Micronized (Ibuprofen) 800 Mg Tab, 800 MG PO PRN for MILD PAIN, TAB 05/14/18 Albuterol Sulfate (Ventolin) 2.5 Mg/3 Ml Nb, 2.5 MG NEB PRN for SHORTNESS OF BREATH 05/14/18 Cholecalciferol (VITAMIN D3) 2,000 Unit Tab, 2000 UNIT PO BID, TAB 05/14/18 Zolpidem Tartrate (Zolpidem Tartrate) 10 Mg Tab, 1 TAB PO HS, #30 TAB 2 Refills 05/14/18 Ferrous Sulfate (Ferrous Sulfate) 325 Mg Tab, 325 MG PO BID 05/19/11 Current Medications Current Medications Medications (Trade) Dose Ordered Sig/Rivas Route PRN Reason Start Time Stop Time Status Last Admin Aspirin 81 mg DAILY PO 11/29/24 10:00 11/29/24 10:00 Carvedilol (Coreg Tablet) 3.125 mg Q12HR PO 11/29/24 10:00 11/29/24 21:38 Albuterol (Ventolin Medneb) 2.5 mg Q4HPRN PRN NEB SHORTNESS OF BREATH 11/29/24 04:30 Ipratropium [place] (Atrovent Medneb) 0.5 mg Q4HPRN PRN NEB SHORTNESS OF BREATH 11/29/24 04:30 Ceftriaxone Sodium 50 ml @ 100 mls/hr Q24H IV 11/29/24 21:00 11/29/24 21:36 Vancomycin HCl 0 ml @ 0 mls/hr UD IV 11/29/24 04:30 11/29/24 12:58 DC Famotidine (Pepcid Injection) 20 mg BID IV 11/29/24 10:00 11/29/24 21:37 Atorvastatin Calcium (Lipitor) 20 mg HS PO 11/29/24 22:00 11/29/24 21:37 Diagnostic Test (Pha) (Accu-Chek Comfort Curve T) 1 strip IQ4HR 11/29/24 08:00 11/29/24 19:58 Insulin Human Regular (InsuLIN R) IQ4HR SC 11/29/24 08:00 11/29/24 20:00 Dextrose 50 ml UD PRN IV Blood Sugar LESS THAN 60 11/29/24 04:30 Sodium Chloride (Saline Lock Ns) 10 ml Q8HR IV 11/29/24 06:00 11/29/24 21:38 Acetaminophen/ Hydrocodone Bitart ([place] 5/325MG Tab) 1 tab Q4HP PRN PO MODERATE PAIN (4-6 PAIN SCALE) 11/29/24 04:30 11/29/24 21:37 Ondansetron HCl (Zofran) 4 mg Q4HP PRN IV NAUSEA / VOMITING 11/29/24 04:30 Docusate Sodium (Colace Capsule) 100 mg BIDPRN PRN PO FOR CONSTIPATION 11/29/24 04:30 Acetaminophen (Tylenol Tablet) 650 mg Q6HP PRN PO PAIN SCALE 1-3 OR TEMP>100.4 11/29/24 04:30 Nitroglycerin (Ntrostat Sublingual) 0.4 mg Q5MINP PRN SL FOR CHEST PAIN 11/29/24 05:45 Morphine Sulfate 2 mg Q30M PRN IV FOR CHEST PAIN 11/29/24 05:45 Vancomycin HCl 150 ml @ 150 mls/hr Q12H IV 11/29/24 17:00 11/29/24 12:58 DC Azithromycin 250 ml @ 125 mls/hr DAILY IV 11/30/24 10:00 Review of Systems Constitutional: reports: chills, fatigue, fever, weakness; denies: diaphoresis, malaise, sweats, others EENTM: denies: blurred vision, double vision, ear bleeding, ear discharge, ear drainage, ear pain, ear ringing, eye pain, eye redness, hearing loss, mouth pain, mouth swelling, nasal discharge, nose bleeding, nose congestion, nose pain, photophobia, tearing, throat pain, throat swelling, voice changes, others Respiratory: reports: cough, SOB at rest, shortness of breath; denies: hemoptysis, orthopnea, SOB with excertion, stridor, wheezing, others Cardiovascular: reports: chest pain, dizzy spells; denies: diaphoresis, Dyspnea on exertion, edema, irregular heart beat, left arm pain, lightheadedness, pal pitations, PND, syncope, others Gastrointestinal: reports: nausea, vomiting; denies: abdomen distended, abdominal pain, blood streaked bowels, constipated, diarrhea, dysphagia, difficulty swallowing, hematemesis, melena, poor appetite, poor fluid intake, rectal bleeding, rectal pain, others Genitourinary: denies: abnormal vagina bleeding, burning, dyspareunia, dysuria, flank pain, frequency, hematuria, incontinence, pain, , vagina discharge, urgency, others Neurological: reports: headache; denies: dizziness, fainting, left sided numbness, left sided weakness, numbness, paresthesia, pre-existing deficit, right sided numbness, right sided weakness, seizure, speech problems, tingling, tremors, weakness, others Musculoskeletal: denies: back pain, gout, joint pain, joint swelling, muscle pain, muscle stiffness, neck pain, others Integumetry: denies: bruises, change in color, change in hair/nails, dryness, laceration, lesions, lumps, rash, wounds, others Allergic/Immunocompromised: denies: Difficulty Healing, Frequent Infections, Hives, Itching, others Hematologic/Lymphatic: denies: anemia, blood clots, easy bleeding, easy bruising, swollen glands, others Endocrine: denies: excessive hunger, excessive sweating, excessive thirst, excessive urination, flushing, intolerance to cold, intolerance to heat, unexplained weight gain, unexplained weight loss, others Psychiatric: denies: anxiety, bipolar disorder, depression, hopeless, panic disorder, schizophrenia, sleepless, suicidal, others Vital Signs Vital Signs Date Time Temp Pulse Resp B/P (MAP) Pulse Ox O2 Delivery O2 Flow Rate FiO2 11/29/24 21:38 98 112/67 11/29/24 21:00 97.5 18 97 97.5 11/29/24 18:17 Nasal Cannula* 3 32 Physical Exam GENERAL: Alert and oriented x 3. No acute distress. EYES: PERRL, EOMI. Anicteric. HENT: Moist mucous membranes. LUNGS: Decreased breath sounds. CARDIOVASCULAR: Regular rate and rhythm. ABDOMEN: Soft, nontender and nondistended. EXTREMITIES: No edema. NEUROLOGIC: No focal neurological deficits. SKIN: Warm, dry. Labs/Diagnostic Data Labs Test 11/29/24 19:44 11/29/24 05:20 11/29/24 04:33 11/29/24 04:11 Range/Units POC Glucose 187 H 70-106 mg/dl White Blood Count 15.0 H 4.4-10.8 10^3/uL Red Blood Count 4.48 4.0-5.20 10^6/uL Hemoglobin 13.0 12.2-16.2 g/dL Hematocrit 38.8 36.0-46.0 % Mean Corpuscular Volume 86.8 80.0-100.0 fL Mean Corpuscular Hemoglobin 29.1 28.0-32.0 pg Mean Corpuscular Hemoglobin Concent 33.6 32.0-36.0 g/dL Red Cell Distribution Width 14.5 H 11.8-14.3 % Platelet Count 218 140-450 10^3/uL Mean Platelet Volume 9.7 6.9-10.8 fL Neutrophils (%) (Auto) 78.7 37.0-80.0 % Lymphocytes (%) (Auto) 12.5 10.0-50.0 % Monocytes (%) (Auto) 7.1 0.0-12.0 % Eosinophils (%) (Auto) 1.0 0.0-7.0 % Basophils (%) (Auto) 0.7 0.0-2.0 % Neutrophils # (Auto) 11.8 H 1.6-8.6 10 ^3/uL Lymphocytes # (Auto) 1.9 0.4-5.4 10 ^3/uL Monocytes # (Auto) 1.1 0-1.3 10 ^3/uL Eosinophils # (Auto) 0.1 0-0.8 10 ^3/uL Basophils # (Auto) 0.1 0-0.2 10 ^3/uL Nucleated Red Blood Cells 0.0 % Sodium Level 141 136-145 mmol/L Potassium Level 4.0 3.5-5.1 mmol/L Chloride Level 103 98-107 mmol/L Carbon Dioxide Level 29 20-31 mmol/L Anion Gap 9 5-15 Blood Urea Nitrogen 11 9-23 mg/dL Creatinine 0.84 0.550-1.02 mg/dL Glomerular Filtration Rate Calc 72 >90 mL/min BUN/Creatinine Ratio 13.1 10.0-20.0 Serum Glucose 200 H 74-106 mg/dL Calcium Level 9.1 8.7-10.4 mg/dL Total Bilirubin 0.5 0.2-1.0 mg/dL Aspartate Amino Transferase (AST) 13 <34 U/L Alanine Aminotransferase (ALT) 10 7-40 U/L Alkaline Phosphatase 86 46-116 U/L Total Protein 5.9 5.7-8.2 g/dL Albumin 3.9 3.2-4.8 g/dL Urine Color Light-yellow Yellow Urine Clarity Clear Clear Urine pH 5.0 5.0-9.0 Urine Specific [place] 1.036 H 1.001-1.035 Urine Protein Negative Negative Urine Ketones Negative Negative Urine Blood Negative Negative /uL Urine Nitrite 1+ H Negative Urine Bilirubin Negative Negative Urine Urobilinogen Normal Negative mg/dL Urine Leukocyte Esterase Negative Negative /uL Urine RBC 1 0 - 4 /hpf Urine Microscopic WBC 5 0-5 /HPF Urine Squamous Epithelial Cells Few <5 /hpf Urine Bacteria None seen None Seen /hpf Urine Glucose 4+ H Normal mg/dL Influenza Type A Antigen Negative Negative Influenza Type B Antigen Negative Negative SARS-CoV-2 Antigen (Rapid) Negative NEGATIVE Test 11/29/24 01:17 11/28/24 22:32 Range/Units Lactic Acid Level 1.8 0.4-2.0 mmol/L Troponin I High Sensitivity 6 </=34 ng/L Prothrombin Time 10.5 9.3-11.8 sec Prothrombin Time INR 0.99 0.9-1.15 Activated Partial Thromboplast Time 25.9 24.5-34.5 SEC Direct Bilirubin 0.3 <0.3 mg/dL B-Type Natriuretic Peptide 111.94 0-100 pg/mL Lipase 27 12-53 U/L Assessment Chest pain. Right lower lobe community-acquired. Sepsis secondary to pneumonia. Acute hypoxic respiratory failure. Acute COPD exacerbation Uncontrolled diabetes. Lactic acidosis. Acute metabolic encephalopathy. Hypercholesterolemia. Coronary artery disease. History of CABG. Generalized weakness. History of TIA . Plan/Recommendation I agree with your ongoing assessment and care of plan. Telemetry reviewed. Morphine and [place] for pain management. Aspirin, Lipitor. IV antibiotics as ordered. Coreg. Nitro SL. Morphine and [place] for pain management. Additional plan as per the hospital course. A total of 45 minutes was spent reviewing the patient record, examining the patient, making a diagnostic and therapeutic plan, discussing this plan with medical personnel, following up on diagnostic studies and following the patient for clinical stability excluding any and all procedures. At least 50% of this time was spent in direct, [id number] contact. Plan discussed with: Patient FITO SIMONS MD Nov 29, 2024 22:05
[2024-11-30] VITALS (11 sets, daily range): BP systolic 95–121; BP diastolic 53–79; PULSE 90–103; RESP 17–19; TEMP 98.2–100.5; O2SAT 91–97
[2024-11-30 07:35] LABS: Hematocrit 36.9 % (36.0-46.0); Hemoglobin 12.4 g/dL (12.2-16.2); Mean Corpuscular Hemoglobin 29.2 pg (28.0-32.0); Mean Corpuscular Volume 86.7 fL (80.0-100.0); Nucleated Red Blood Cells % 0.0 %
[2024-11-30 07:58] LABS: Alanine Aminotransferase 13 U/L (7-40); Albumin 3.8 g/dL (3.2-4.8); Alkaline Phosphatase 92 U/L (46-116); Anion Gap 11 (5-15); BUN/Creatinine Ratio 15.8 (10.0-20.0); Calcium 9.5 mg/dL (8.7-10.4); Carbon Dioxide 27 mmol/L (20-31); Chloride 103 mmol/L (98-107); Glucose 99 mg/dL (74-106); Sodium 141 mmol/L (136-145); Total Protein 5.8 g/dL (5.7-8.2)
[2024-11-30 07:59] LABS: Bilirubin, Total 0.6 mg/dL (0.2-1.0)
[2024-11-30 08:07] LABS: Blood Urea Nitrogen 9 mg/dL (9-23); Potassium 3.5 mmol/L (3.5-5.1)
[2024-11-30] MEDS: AZITHROMYCIN 500MG/ 250ML 250 ML IV SCH (09:25)
--- NOTE | 2024-11-30 13:22 | DVHPN2 ---
Reviewed: Care Plan, H&P, Labs, Medications, Previous Orders, Radiology Changes from previous H/P or p: No Changes Eyes: No Pain, No Vision change, No Conjunctivae inflammation, No Eyelid inflammation, No Other, No Redness ENT: No Ear pain, No Ear discharge, No Nose pain, No Nose discharge, No Nose congestion, No Mouth pain, No Mouth swelling, No Throat pain, No Throat swelling, No Other Cardiovascular: Chest Pain; No Palpitations, No Orthopnea, No Paroxysmal Noc. Dyspnea, No Edema, No Lt Headedness, No Other Respiratory: Cough; No Dry; Shortness of breath; No SOB with excertion, No Wheezing, No Hemoptysis, No Pleuritic Pain, No Sputum; Other (SOB at rest) Gastrointestinal: Nausea, Vomiting; No Abdominal Pain, No Diarrhea, No Constipation, No Melena, No Hematochezia, No Other Genitourinary: No Dysuria, No Frequency, No Incontinence, No Hematuria, No Retention, No Other Musculoskeletal: No other, No neck pain, No shoulder pain, No arm pain, No back pain, No hand pain, No leg pain, No foot pain Skin: No Rash, No Lesions, No Jaundice, No Bruising, No Other Objective Vitals Vital Signs Date Time Temp Pulse Resp B/P (MAP) Pulse Ox O2 Delivery O2 Flow Rate FiO2 11/30/24 10:25 96 114/74 11/30/24 10:00 96 Nasal Cannula* 3 32 11/30/24 09:00 100.5 17 100.5 Intake/Output Intake and Output 11/30/24 07:00 Intake Total 450 ml Balance 450 ml Intake Oral 400 ml IV Total 50 ml # Voids 3 Medications Current Medications Medications Dose Ordered Sig/Rivas Route Start Time Stop Time Status Last Admin Dose Admin Aspirin 81 mg DAILY PO 11/29/24 10:00 11/30/24 09:25 81 MG Carvedilol 3.125 mg Q12HR PO 11/29/24 10:00 11/30/24 09:25 3.125 MG Albuterol 2.5 mg Q4HPRN PRN NEB 11/29/24 04:30 Ipratropium [place] 0.5 mg Q4HPRN PRN NEB 11/29/24 04:30 Ceftriaxone Sodium 50 ml @ 100 mls/hr Q24H IV 11/29/24 21:00 11/29/24 21:36 100 MLS/HR Famotidine 20 mg BID IV 11/29/24 10:00 11/30/24 09:25 20 MG Atorvastatin Calcium 20 mg HS PO 11/29/24 22:00 11/29/24 21:37 20 MG Diagnostic Test (Pha) 1 strip IQ4HR 11/29/24 08:00 11/30/24 12:08 1 STRIP Insulin Human Regular IQ4HR SC 11/29/24 08:00 11/30/24 12:10 3 UNITS Dextrose 50 ml UD PRN IV 11/29/24 04:30 Sodium Chloride 10 ml Q8HR IV 11/29/24 06:00 11/30/24 05:30 10 ML Acetaminophen/ Hydrocodone Bitart 1 tab Q4HP PRN PO 11/29/24 04:30 11/30/24 09:24 1 TAB Ondansetron HCl 4 mg Q4HP PRN IV 11/29/24 04:30 Docusate Sodium 100 mg BIDPRN PRN PO 11/29/24 04:30 Acetaminophen 650 mg Q6HP PRN PO 11/29/24 04:30 Nitroglycerin 0.4 mg Q5MINP PRN SL 11/29/24 05:45 Morphine Sulfate 2 mg Q30M PRN IV 11/29/24 05:45 Azithromycin 250 ml @ 125 mls/hr DAILY IV 11/30/24 10:00 11/30/24 09:25 125 MLS/HR Laboratory Results Laboratory Tests 11/30/24 06:38 Chemistry Test 11/30/24 06:38 Albumin 3.8 g/dL (3.2-4.8) Calcium Level 9.5 mg/dL (8.7-10.4) Total Protein 5.8 g/dL (5.7-8.2) LFT Test 11/30/24 06:38 Alanine Aminotransferase (ALT) 13 U/L (7-40) Alkaline Phosphatase 92 U/L (46-116) Aspartate Amino Transferase (AST) 11 U/L (<34) Total Bilirubin 0.6 mg/dL (0.2-1.0) Urinalysis Test 11/29/24 04:33 Urine Color Light-yellow (Yellow) Urine Clarity Clear (Clear) Urine pH 5.0 (5.0-9.0) Urine Specific [place] 1.036 (1.001-1.035) Urine Protein Negative (Negative) Urine Ketones Negative (Negative) Urine Blood Negative /uL (Negative) Urine Nitrite 1+ (Negative) H Urine Bilirubin Negative (Negative) Urine Urobilinogen Normal mg/dL (Negative) Urine Leukocyte Esterase Negative /uL (Negative) Urine RBC 1 /hpf (0 - 4) Urine Microscopic WBC 5 /HPF (0-5) Urine Squamous Epithelial Cells Few /hpf (<5) Urine Bacteria None seen /hpf (None Seen) Urine Glucose 4+ mg/dL (Normal) H Microbiology Microbiology Date/Time Source Procedure Growth Status 11/29/24 04:33 Voided Urine Urine Culture - Preliminary Resulted 11/28/24 23:14 Blood Blood Culture - Preliminary NO GROWTH AFTER 24 HOURS OF INCUBATION. Resulted Labs and/or images reviewed: Labs reviewed by me, Image(s) reviewed by me Assessment/Plan Assessment/Plan Chest pain with with multiple cardiac risk factors, troponin negative, treatment per ACS protocol, consult for insurance examiner Dr.M Mata appreciated Right lower lobe community-acquired Pneumonia Gram-positive versus Gram- negative: Rocephin azithromycin Sepsis secondary to pneumonia Acute hypoxic respiratory failure: Oxygen by nasal cannula Use of home oxygen 3 L per mt Acute COPD exacerbation Uncontrolled diabetes with glucose 420: Aggressive insulin sliding scale Lactic acidosis Acute metabolic encephalopathy Shirin test negative Flu test negative Hypercholesterolemia History of Coronary artery disease History of CABG Generalized weakness History of TIA Time spent 50 minutes Advanced care planning time 20 minutes Patient is full code Patient is hospice revoked Plan discussed with: Patient Date of Service: Nov 30, 2024 Billing Provider: ELISEO PELAEZ MD Common Visit Codes: [id number] INP/OBS CARE(HIGH) ELISEO PELAEZ MD Nov 30, 2024 13:22
[2024-11-30] MEDS: methylPREDNISolone SOD SUCC 125 MG/2 ML VL IV SCH (14:12)
--- NOTE | 2024-11-30 21:59 | DVHPN2 ---
Progress Note - Dictate Date Seen: Nov 30, 2024 Medical Necessity Reason Pt with a Central, PICC or Fol: No Subjective Patient was seen and evaluated in follow up. Patient is on 3 LPM NC. She is c/o SOB. BS in the 150s. Prelim blood cultures are negative. Telemetry reviewed. vital signs Vital Sign Date Time Temp Pulse Resp B/P (MAP) Pulse Ox O2 Delivery O2 Flow Rate FiO2 11/30/24 21:28 95 108/66 11/30/24 21:00 98.2 19 95 98.2 11/30/24 19:47 Nasal Cannula* 3 32 Total Intake and Output 11/29/24 11/29/24 11/30/24 15:00 23:00 07:00 Intake Total 50 ml 400 ml Balance 50 ml 400 ml medications Current Medications Medications Dose Ordered Sig/Rivas Route Start Time Stop Time Status Last Admin Dose Admin Aspirin 81 mg DAILY PO 11/29/24 10:00 11/30/24 09:25 81 MG Carvedilol 3.125 mg Q12HR PO 11/29/24 10:00 11/30/24 21:28 3.125 MG Albuterol 2.5 mg Q4HPRN PRN NEB 11/29/24 04:30 Ipratropium [place] 0.5 mg Q4HPRN PRN NEB 11/29/24 04:30 Ceftriaxone Sodium 50 ml @ 100 mls/hr Q24H IV 11/29/24 21:00 11/30/24 20:35 100 MLS/HR Famotidine 20 mg BID IV 11/29/24 10:00 11/30/24 21:28 20 MG Atorvastatin Calcium 20 mg HS PO 11/29/24 22:00 11/30/24 21:27 20 MG Diagnostic Test (Pha) 1 strip IQ4HR 11/29/24 08:00 11/30/24 20:22 1 STRIP Insulin Human Regular IQ4HR SC 11/29/24 08:00 11/30/24 20:25 3 UNITS Dextrose 50 ml UD PRN IV 11/29/24 04:30 Sodium Chloride 10 ml Q8HR IV 11/29/24 06:00 11/30/24 21:28 10 ML Acetaminophen/ Hydrocodone Bitart 1 tab Q4HP PRN PO 11/29/24 04:30 11/30/24 21:31 1 TAB Ondansetron HCl 4 mg Q4HP PRN IV 11/29/24 04:30 Docusate Sodium 100 mg BIDPRN PRN PO 11/29/24 04:30 Acetaminophen 650 mg Q6HP PRN PO 11/29/24 04:30 Nitroglycerin 0.4 mg Q5MINP PRN SL 11/29/24 05:45 Morphine Sulfate 2 mg Q30M PRN IV 11/29/24 05:45 Azithromycin 250 ml @ 125 mls/hr DAILY IV 11/30/24 10:00 11/30/24 09:25 125 MLS/HR Methylprednisolone Sodium Succinate 60 mg Q8HR IV 11/30/24 14:00 11/30/24 21:28 60 MG objective GENERAL: Alert and oriented x 3. No acute distress. EYES: PERRL, EOMI. Anicteric. HENT: Moist mucous membranes. LUNGS: Decreased breath sounds. CARDIOVASCULAR: Regular rate and rhythm. ABDOMEN: Soft, nontender and nondistended. EXTREMITIES: No edema. NEUROLOGIC: No focal neurological deficits. SKIN: Warm, dry. laboratory and microbiology Laboratory Tests 11/30/24 06:38 Test 11/30/24 06:38 Range/Units Serum Glucose 99 74-106 mg/dL Problem List Chest pain. Right lower lobe community-acquired. Sepsis secondary to pneumonia. Acute hypoxic respiratory failure. Acute COPD exacerbation Uncontrolled diabetes. Lactic acidosis. Acute metabolic encephalopathy. Hypercholesterolemia. Coronary artery disease. History of CABG. Generalized weakness. History of TIA. Assessment/Plan Continued all current supportive medical care. Morphine and [place] for pain management. Aspirin, Lipitor. IV antibiotics as ordered. Coreg. Nitro SL. Morphine and [place] for pain management. Additional plan as per the hospital course. Plan discussed with: Patient FITO SIMONS MD Nov 30, 2024 21:59
[2024-12-01] VITALS (11 sets, daily range): BP systolic 94–124; BP diastolic 57–67; PULSE 82–94; RESP 14–19; TEMP 97.7–98.6; O2SAT 93–97
--- NOTE | 2024-12-01 10:42 | DVHPN2 ---
Reviewed: Care Plan, H&P, Labs, Medications, Previous Orders, Radiology Changes from previous H/P or p: No Changes Eyes: No Pain, No Vision change, No Conjunctivae inflammation, No Eyelid inflammation, No Other, No Redness ENT: No Ear pain, No Ear discharge, No Nose pain, No Nose discharge, No Nose congestion, No Mouth pain, No Mouth swelling, No Throat pain, No Throat swelling, No Other Cardiovascular: Chest Pain Respiratory: Cough, Shortness of breath, Other Gastrointestinal: Nausea, Vomiting Genitourinary: No Dysuria, No Frequency, No Incontinence, No Hematuria, No Retention, No Other Musculoskeletal: No other, No neck pain, No shoulder pain, No arm pain, No back pain, No hand pain, No leg pain, No foot pain Skin: No Rash, No Lesions, No Jaundice, No Bruising, No Other Objective Vitals Vital Signs Date Time Temp Pulse Resp B/P (MAP) Pulse Ox O2 Delivery O2 Flow Rate FiO2 12/01/24 09:41 86 124/67 12/01/24 07:28 93 Nasal Cannula* 3 32 12/01/24 05:00 98.0 18 98.0 Intake/Output Intake and Output 12/01/24 07:00 Intake Total 1350 ml Balance 1350 ml Intake Oral 1300 ml IV Total 50 ml # Voids 11 # Bowel Movements 2 Medications Current Medications Medications Dose Ordered Sig/Rivas Route Start Time Stop Time Status Last Admin Dose Admin Aspirin 81 mg DAILY PO 11/29/24 10:00 12/01/24 09:40 81 MG Carvedilol 3.125 mg Q12HR PO 11/29/24 10:00 12/01/24 09:41 3.125 MG Albuterol 2.5 mg Q4HPRN PRN NEB 11/29/24 04:30 Ipratropium [place] 0.5 mg Q4HPRN PRN NEB 11/29/24 04:30 Ceftriaxone Sodium 50 ml @ 100 mls/hr Q24H IV 11/29/24 21:00 11/30/24 20:35 100 MLS/HR Famotidine 20 mg BID IV 11/29/24 10:00 12/01/24 09:25 20 MG Atorvastatin Calcium 20 mg HS PO 11/29/24 22:00 11/30/24 21:27 20 MG Diagnostic Test (Pha) 1 strip IQ4HR 11/29/24 08:00 12/01/24 08:00 1 STRIP Insulin Human Regular IQ4HR SC 11/29/24 08:00 12/01/24 00:05 3 UNITS Dextrose 50 ml UD PRN IV 11/29/24 04:30 Sodium Chloride 10 ml Q8HR IV 11/29/24 06:00 12/01/24 05:47 10 ML Acetaminophen/ Hydrocodone Bitart 1 tab Q4HP PRN PO 11/29/24 04:30 11/30/24 21:31 1 TAB Ondansetron HCl 4 mg Q4HP PRN IV 11/29/24 04:30 Docusate Sodium 100 mg BIDPRN PRN PO 11/29/24 04:30 Acetaminophen 650 mg Q6HP PRN PO 11/29/24 04:30 Nitroglycerin 0.4 mg Q5MINP PRN SL 11/29/24 05:45 Morphine Sulfate 2 mg Q30M PRN IV 11/29/24 05:45 Azithromycin 250 ml @ 125 mls/hr DAILY IV 11/30/24 10:00 12/01/24 09:25 125 MLS/HR Methylprednisolone Sodium Succinate 60 mg Q8HR IV 11/30/24 14:00 12/01/24 05:47 60 MG Laboratory Results Laboratory Tests 11/30/24 06:38 Urinalysis Test 11/29/24 04:33 Urine Color Light-yellow (Yellow) Urine Clarity Clear (Clear) Urine pH 5.0 (5.0-9.0) Urine Specific [place] 1.036 (1.001-1.035) Urine Protein Negative (Negative) Urine Ketones Negative (Negative) Urine Blood Negative /uL (Negative) Urine Nitrite 1+ (Negative) H Urine Bilirubin Negative (Negative) Urine Urobilinogen Normal mg/dL (Negative) Urine Leukocyte Esterase Negative /uL (Negative) Urine RBC 1 /hpf (0 - 4) Urine Microscopic WBC 5 /HPF (0-5) Urine Squamous Epithelial Cells Few /hpf (<5) Urine Bacteria None seen /hpf (None Seen) Urine Glucose 4+ mg/dL (Normal) H Microbiology Microbiology Date/Time Source Procedure Growth Status 11/29/24 04:33 Voided Urine Urine Culture - Final Complete 11/28/24 23:14 Blood Blood Culture - Preliminary NO GROWTH AFTER 48 HOURS OF INCUBATION. Resulted Labs and/or images reviewed: Labs reviewed by me, Image(s) reviewed by me Assessment/Plan Assessment/Plan Chest pain with multiple cardiac risk factors, troponin negative, treatment per ACS protocol, consult for card painter Dr.M Mata appreciated Right lower lobe community-acquired Pneumonia Gram-positive versus Gram- negative: Rocephin azithromycin Sepsis secondary to pneumonia Acute hypoxic respiratory failure: Oxygen by nasal cannula Use of home oxygen 3 L per mt Acute COPD exacerbation Uncontrolled diabetes with glucose 420: Aggressive insulin sliding scale Lactic acidosis Acute metabolic encephalopathy Shirin test negative Flu test negative Hypercholesterolemia History of Coronary artery disease History of CABG Generalized weakness History of TIA Time spent 70 minutes Advanced care planning time 20 minutes Patient is full code Patient is hospice revoked Plan discussed with: Patient My Orders Orders - ELISEO PELAEZ MD Procedure Category Date Status Time Methylprednisolone PHA 11/30/24 In Process Sod Succ (Solu Medrol 14:00 Initiate Vte DEVI 11/30/24 In Process Prophylaxis 23:21 Date of Service: Dec 01, 2024 Billing Provider: ELISEO PELAEZ MD Common Visit Codes: [id number] CARE 30-74 MIN ELISEO PELAEZ MD Dec 01, 2024 10:42
[2024-12-01 13:59] LABS: Hematocrit 43.4 % (36.0-46.0); Hemoglobin 14.1 g/dL (12.2-16.2); Mean Corpuscular Hemoglobin 28.8 pg (28.0-32.0); Mean Corpuscular Volume 88.3 fL (80.0-100.0); Nucleated Red Blood Cells % 0.1 %
--- NOTE | 2024-12-01 23:47 | DVHPN2 ---
Progress Note - Dictate Date Seen: Dec 01, 2024 Medical Necessity Reason Pt with a Central, PICC or Fol: No Subjective Patient was seen and evaluated in follow up. Patient is on 3 LPM NC. Patient is c/o cough, SOB and chest discomfort. CBC is unremarkable. BS in the 230s. Telemetry reviewed. vital signs Vital Sign Date Time Temp Pulse Resp B/P (MAP) Pulse Ox O2 Delivery O2 Flow Rate FiO2 12/01/24 21:15 91 117/64 12/01/24 21:00 98.6 14 97 98.6 12/01/24 20:42 Nasal Cannula 3.0 12/01/24 20:42 32 Total Intake and Output 11/30/24 11/30/24 12/01/24 15:00 23:00 07:00 Intake Total 700 ml 650 ml Balance 700 ml 650 ml medications Current Medications Medications Dose Ordered Sig/Rivas Route Start Time Stop Time Status Last Admin Dose Admin Aspirin 81 mg DAILY PO 11/29/24 10:00 12/01/24 09:40 81 MG Carvedilol 3.125 mg Q12HR PO 11/29/24 10:00 12/01/24 21:15 3.125 MG Albuterol 2.5 mg Q4HPRN PRN NEB 11/29/24 04:30 Ipratropium [place] 0.5 mg Q4HPRN PRN NEB 11/29/24 04:30 Ceftriaxone Sodium 50 ml @ 100 mls/hr Q24H IV 11/29/24 21:00 12/01/24 21:16 100 MLS/HR Famotidine 20 mg BID IV 11/29/24 10:00 12/01/24 21:14 20 MG Atorvastatin Calcium 20 mg HS PO 11/29/24 22:00 12/01/24 21:14 20 MG Diagnostic Test (Pha) 1 strip IQ4HR 11/29/24 08:00 12/01/24 20:14 1 STRIP Insulin Human Regular IQ4HR SC 11/29/24 08:00 12/01/24 20:17 6 UNITS Dextrose 50 ml UD PRN IV 11/29/24 04:30 Sodium Chloride 10 ml Q8HR IV 11/29/24 06:00 12/01/24 21:16 10 ML Acetaminophen/ Hydrocodone Bitart 1 tab Q4HP PRN PO 11/29/24 04:30 12/01/24 21:23 1 TAB Ondansetron HCl 4 mg Q4HP PRN IV 11/29/24 04:30 Docusate Sodium 100 mg BIDPRN PRN PO 11/29/24 04:30 Acetaminophen 650 mg Q6HP PRN PO 11/29/24 04:30 Nitroglycerin 0.4 mg Q5MINP PRN SL 11/29/24 05:45 Morphine Sulfate 2 mg Q30M PRN IV 11/29/24 05:45 Azithromycin 250 ml @ 125 mls/hr DAILY IV 11/30/24 10:00 12/01/24 09:25 125 MLS/HR Methylprednisolone Sodium Succinate 60 mg Q8HR IV 11/30/24 14:00 12/01/24 21:14 60 MG objective GENERAL: Alert and oriented x 3. No acute distress. EYES: PERRL, EOMI. Anicteric. HENT: Moist mucous membranes. LUNGS: Decreased breath sounds. CARDIOVASCULAR: Regular rate and rhythm. ABDOMEN: Soft, nontender and nondistended. EXTREMITIES: No edema. NEUROLOGIC: No focal neurological deficits. SKIN: Warm, dry. laboratory and microbiology Laboratory Tests 12/01/24 13:43 11/30/24 06:38 Test 11/30/24 06:38 Range/Units Serum Glucose 99 74-106 mg/dL Problem List Chest pain. Right lower lobe community-acquired. Sepsis secondary to pneumonia. Acute hypoxic respiratory failure. Acute COPD exacerbation Uncontrolled diabetes. Lactic acidosis. Acute metabolic encephalopathy. Hypercholesterolemia. Coronary artery disease. History of CABG. Generalized weakness. History of TIA. Assessment/Plan Continued all current supportive medical care. Morphine and [place] for pain management. Aspirin, Lipitor. IV antibiotics as ordered. Coreg. Nitro SL. Morphine and [place] for pain management. Additional plan as per the hospital course. Plan discussed with: Patient FITO SIMONS MD Dec 01, 2024 23:47
[2024-12-02] VITALS (11 sets, daily range): BP systolic 108–126; BP diastolic 60–71; PULSE 72–84; RESP 14–18; TEMP 97.3–98.2; O2SAT 90–98
[2024-12-02] MEDS: ACETAMINOPHEN 325 MG TAB PO PRN (05:37)
[2024-12-02 06:49] LABS: Alanine Aminotransferase 10 U/L (7-40); Albumin 4.0 g/dL (3.2-4.8); Alkaline Phosphatase 85 U/L (46-116); Anion Gap 10 (5-15); BUN/Creatinine Ratio 32.3 (10.0-20.0); Bilirubin, Total 0.3 mg/dL (0.2-1.0); Blood Urea Nitrogen 21 mg/dL (9-23); Calcium 9.3 mg/dL (8.7-10.4); Carbon Dioxide 28 mmol/L (20-31); Chloride 103 mmol/L (98-107); Potassium 3.9 mmol/L (3.5-5.1); Sodium 141 mmol/L (136-145); Total Protein 6.3 g/dL (5.7-8.2)
[2024-12-02 06:55] LABS: Glucose 155 mg/dL (74-106)
--- NOTE | 2024-12-02 11:48 | DVHPN2 ---
Reviewed: Care Plan, H&P, Labs, Medications, Previous Orders, Radiology Changes from previous H/P or p: No Changes Eyes: No Pain, No Vision change, No Conjunctivae inflammation, No Eyelid inflammation, No Other, No Redness ENT: No Ear pain, No Ear discharge, No Nose pain, No Nose discharge, No Nose congestion, No Mouth pain, No Mouth swelling, No Throat pain, No Throat swelling, No Other Cardiovascular: Chest Pain Respiratory: Cough, Shortness of breath, Other Gastrointestinal: Nausea, Vomiting Genitourinary: No Dysuria, No Frequency, No Incontinence, No Hematuria, No Retention, No Other Musculoskeletal: No other, No neck pain, No shoulder pain, No arm pain, No back pain, No hand pain, No leg pain, No foot pain Skin: No Rash, No Lesions, No Jaundice, No Bruising, No Other Objective Vitals Vital Signs Date Time Temp Pulse Resp B/P (MAP) Pulse Ox O2 Delivery O2 Flow Rate FiO2 12/02/24 10:19 74 126/60 12/02/24 09:31 94 Nasal Cannula 3.0 12/02/24 09:31 32 12/02/24 09:00 97.8 14 97.8 Intake/Output Intake and Output 12/02/24 07:00 Intake Total 950 ml Balance 950 ml Intake Oral 900 ml IV Total 50 ml # Voids 9 # Bowel Movements 3 Medications Current Medications Medications Dose Ordered Sig/Rivas Route Start Time Stop Time Status Last Admin Dose Admin Aspirin 81 mg DAILY PO 11/29/24 10:00 12/02/24 10:09 81 MG Carvedilol 3.125 mg Q12HR PO 11/29/24 10:00 12/02/24 10:19 3.125 MG Albuterol 2.5 mg Q4HPRN PRN NEB 11/29/24 04:30 Ipratropium [place] 0.5 mg Q4HPRN PRN NEB 11/29/24 04:30 Ceftriaxone Sodium 50 ml @ 100 mls/hr Q24H IV 11/29/24 21:00 12/01/24 21:16 100 MLS/HR Famotidine 20 mg BID IV 11/29/24 10:00 12/02/24 10:09 20 MG Atorvastatin Calcium 20 mg HS PO 11/29/24 22:00 12/01/24 21:14 20 MG Diagnostic Test (Pha) 1 strip IQ4HR 11/29/24 08:00 12/02/24 08:00 1 STRIP Insulin Human Regular IQ4HR SC 11/29/24 08:00 12/02/24 08:00 2 UNITS Dextrose 50 ml UD PRN IV 11/29/24 04:30 Sodium Chloride 10 ml Q8HR IV 11/29/24 06:00 12/02/24 10:25 10 ML Acetaminophen/ Hydrocodone Bitart 1 tab Q4HP PRN PO 11/29/24 04:30 12/01/24 21:23 1 TAB Ondansetron HCl 4 mg Q4HP PRN IV 11/29/24 04:30 Docusate Sodium 100 mg BIDPRN PRN PO 11/29/24 04:30 Acetaminophen 650 mg Q6HP PRN PO 11/29/24 04:30 12/02/24 05:37 650 MG Nitroglycerin 0.4 mg Q5MINP PRN SL 11/29/24 05:45 Morphine Sulfate 2 mg Q30M PRN IV 11/29/24 05:45 Azithromycin 250 ml @ 125 mls/hr DAILY IV 11/30/24 10:00 12/02/24 10:09 125 MLS/HR Methylprednisolone Sodium Succinate 60 mg Q8HR IV 11/30/24 14:00 12/02/24 05:33 60 MG Laboratory Results Laboratory Tests 12/01/24 13:43 12/02/24 05:10 Chemistry Test 12/02/24 05:10 Albumin 4.0 g/dL (3.2-4.8) Calcium Level 9.3 mg/dL (8.7-10.4) Total Protein 6.3 g/dL (5.7-8.2) LFT Test 12/02/24 05:10 Alanine Aminotransferase (ALT) 10 U/L (7-40) Alkaline Phosphatase 85 U/L (46-116) Aspartate Amino Transferase (AST) 10 U/L (13-40) L Total Bilirubin 0.3 mg/dL (0.2-1.0) Urinalysis Test 11/29/24 04:33 Urine Color Light-yellow (Yellow) Urine Clarity Clear (Clear) Urine pH 5.0 (5.0-9.0) Urine Specific [place] 1.036 (1.001-1.035) Urine Protein Negative (Negative) Urine Ketones Negative (Negative) Urine Blood Negative /uL (Negative) Urine Nitrite 1+ (Negative) H Urine Bilirubin Negative (Negative) Urine Urobilinogen Normal mg/dL (Negative) Urine Leukocyte Esterase Negative /uL (Negative) Urine RBC 1 /hpf (0 - 4) Urine Microscopic WBC 5 /HPF (0-5) Urine Squamous Epithelial Cells Few /hpf (<5) Urine Bacteria None seen /hpf (None Seen) Urine Glucose 4+ mg/dL (Normal) H Microbiology Microbiology Date/Time Source Procedure Growth Status 11/29/24 04:33 Voided Urine Urine Culture - Final Complete 11/28/24 23:14 Blood Blood Culture - Preliminary NO GROWTH AFTER 72 HOURS OF INCUBATION. Resulted Assessment/Plan Assessment/Plan Chest pain with multiple cardiac risk factors, troponin negative, treatment per ACS protocol, consult for customer response representative Dr.M Mata appreciated Right lower lobe community-acquired Pneumonia Gram-positive versus Gram- negative: Rocephin azithromycin Sepsis secondary to pneumonia Acute hypoxic respiratory failure: Oxygen by nasal cannula Use of home oxygen 3 L per mt Acute COPD exacerbation Uncontrolled diabetes with glucose 420: Aggressive insulin sliding scale Lactic acidosis Acute metabolic encephalopathy Shirin test negative Flu test negative Hypercholesterolemia History of Coronary artery disease History of CABG Generalized weakness History of TIA Time spent 56 minutes Advanced care planning time 20 minutes Patient is full code Patient is hospice revoked Midline ordered Home health will be arranged for IV antibiotics for two weeks Plan discussed with: Patient Date of Service: Dec 02, 2024 Billing Provider: ELISEO PELAEZ MD Common Visit Codes: [id number] INP/OBS CARE(HIGH) ELISEO PELAEZ MD Dec 02, 2024 11:48
--- NOTE | 2024-12-02 22:56 | DVHPN2 ---
Progress Note - Dictate Date Seen: Dec 02, 2024 Medical Necessity Reason Pt with a Central, PICC or Fol: No Subjective Patient was seen and evaluated in follow up. Patient remains with a cough with SOB and chest discomfort. Patient is stable on 3 LPM NC. BS are in the 290's. Telemetry reviewed. vital signs Vital Sign Date Time Temp Pulse Resp B/P (MAP) Pulse Ox O2 Delivery O2 Flow Rate FiO2 12/02/24 16:45 97.6 75 14 123/71 (88) 96 97.6 12/02/24 09:31 Nasal Cannula 3.0 12/02/24 09:31 32 Total Intake and Output 12/01/24 12/01/24 12/02/24 15:00 23:00 07:00 Intake Total 800 ml 150 ml Balance 800 ml 150 ml medications Current Medications Medications Dose Ordered Sig/Rivas Route Start Time Stop Time Status Last Admin Dose Admin Aspirin 81 mg DAILY PO 11/29/24 10:00 12/02/24 10:09 81 MG Carvedilol 3.125 mg Q12HR PO 11/29/24 10:00 12/02/24 10:19 3.125 MG Albuterol 2.5 mg Q4HPRN PRN NEB 11/29/24 04:30 Ipratropium [place] 0.5 mg Q4HPRN PRN NEB 11/29/24 04:30 Ceftriaxone Sodium 50 ml @ 100 mls/hr Q24H IV 11/29/24 21:00 12/01/24 21:16 100 MLS/HR Famotidine 20 mg BID IV 11/29/24 10:00 12/02/24 10:09 20 MG Atorvastatin Calcium 20 mg HS PO 11/29/24 22:00 12/01/24 21:14 20 MG Diagnostic Test (Pha) 1 strip IQ4HR 11/29/24 08:00 12/02/24 16:00 1 STRIP Insulin Human Regular IQ4HR SC 11/29/24 08:00 12/02/24 12:00 9 UNITS Dextrose 50 ml UD PRN IV 11/29/24 04:30 Sodium Chloride 10 ml Q8HR IV 11/29/24 06:00 12/02/24 10:25 10 ML Acetaminophen/ Hydrocodone Bitart 1 tab Q4HP PRN PO 11/29/24 04:30 12/02/24 15:16 1 TAB Ondansetron HCl 4 mg Q4HP PRN IV 11/29/24 04:30 Docusate Sodium 100 mg BIDPRN PRN PO 11/29/24 04:30 Acetaminophen 650 mg Q6HP PRN PO 11/29/24 04:30 12/02/24 05:37 650 MG Nitroglycerin 0.4 mg Q5MINP PRN SL 11/29/24 05:45 Morphine Sulfate 2 mg Q30M PRN IV 11/29/24 05:45 Azithromycin 250 ml @ 125 mls/hr DAILY IV 11/30/24 10:00 12/02/24 10:09 125 MLS/HR Methylprednisolone Sodium Succinate 60 mg Q8HR IV 11/30/24 14:00 12/02/24 15:03 60 MG objective GENERAL: Alert and oriented x 3. No acute distress. EYES: PERRL, EOMI. Anicteric. HENT: Moist mucous membranes. LUNGS: Decreased breath sounds. CARDIOVASCULAR: Regular rate and rhythm. ABDOMEN: Soft, nontender and nondistended. EXTREMITIES: No edema. NEUROLOGIC: No focal neurological deficits. SKIN: Warm, dry. laboratory and microbiology Laboratory Tests 12/02/24 05:10 12/01/24 13:43 Test 12/02/24 05:10 Range/Units Serum Glucose 155 H 74-106 mg/dL Problem List Chest pain. Right lower lobe community-acquired. Sepsis secondary to pneumonia. Acute hypoxic respiratory failure. Acute COPD exacerbation Uncontrolled diabetes. Lactic acidosis. Acute metabolic encephalopathy. Hypercholesterolemia. Coronary artery disease. History of CABG. Generalized weakness. History of TIA. Assessment/Plan Continued all current supportive medical care. IV Solu-Medrol. Morphine and [place] for pain management. Aspirin, Lipitor. IV antibiotics as ordered. Coreg. Nitro SL. Morphine and [place] for pain management. Additional plan as per the hospital course. Dietary Evaluation Review Comments: 1) CCHO 60gm + cardiac diet 2) Refer CDE on DC Expected Outcomes/Goals: Blood glucoe under control FU 3-5 days Plan discussed with: Patient FITO SIMONS MD Dec 02, 2024 17:11
[2024-12-03] VITALS (9 sets, daily range): BP systolic 98–141; BP diastolic 60–77; PULSE 67–74; RESP 12–16; TEMP 97.2–98.8; O2SAT 93–98
--- NOTE | 2024-12-03 11:35 | DVHPN2 ---
Reviewed: Care Plan, H&P, Labs, Medications, Previous Orders, Radiology Changes from previous H/P or p: No Changes Eyes: No Pain, No Vision change, No Conjunctivae inflammation, No Eyelid inflammation, No Other, No Redness ENT: No Ear pain, No Ear discharge, No Nose pain, No Nose discharge, No Nose congestion, No Mouth pain, No Mouth swelling, No Throat pain, No Throat swelling, No Other Cardiovascular: Chest Pain Respiratory: Cough, Shortness of breath, Other Gastrointestinal: Nausea, Vomiting Genitourinary: No Dysuria, No Frequency, No Incontinence, No Hematuria, No Retention, No Other Musculoskeletal: No other, No neck pain, No shoulder pain, No arm pain, No back pain, No hand pain, No leg pain, No foot pain Skin: No Rash, No Lesions, No Jaundice, No Bruising, No Other Objective Vitals Vital Signs Date Time Temp Pulse Resp B/P (MAP) Pulse Ox O2 Delivery O2 Flow Rate FiO2 12/03/24 10:01 70 136/82 12/03/24 10:00 95 Nasal Cannula 3.0 12/03/24 10:00 32 12/03/24 09:00 98.8 14 98.8 Intake/Output Intake and Output 12/03/24 07:00 Intake Total 950 ml Balance 950 ml Intake Oral 900 ml IV Total 50 ml # Voids 6 # Bowel Movements 1 Medications Current Medications Medications Dose Ordered Sig/Rivas Route Start Time Stop Time Status Last Admin Dose Admin Aspirin 81 mg DAILY PO 11/29/24 10:00 12/03/24 10:02 81 MG Carvedilol 3.125 mg Q12HR PO 11/29/24 10:00 12/03/24 10:01 3.125 MG Albuterol 2.5 mg Q4HPRN PRN NEB 11/29/24 04:30 Ipratropium [place] 0.5 mg Q4HPRN PRN NEB 11/29/24 04:30 Ceftriaxone Sodium 50 ml @ 100 mls/hr Q24H IV 11/29/24 21:00 12/02/24 20:14 100 MLS/HR Famotidine 20 mg BID IV 11/29/24 10:00 12/03/24 09:53 20 MG Atorvastatin Calcium 20 mg HS PO 11/29/24 22:00 12/02/24 22:06 20 MG Diagnostic Test (Pha) 1 strip IQ4HR 11/29/24 08:00 12/03/24 08:00 1 STRIP Insulin Human Regular IQ4HR SC 11/29/24 08:00 12/03/24 09:51 6 UNITS Dextrose 50 ml UD PRN IV 11/29/24 04:30 Sodium Chloride 10 ml Q8HR IV 11/29/24 06:00 12/03/24 05:33 10 ML Acetaminophen/ Hydrocodone Bitart 1 tab Q4HP PRN PO 11/29/24 04:30 12/03/24 10:15 1 TAB Ondansetron HCl 4 mg Q4HP PRN IV 11/29/24 04:30 Docusate Sodium 100 mg BIDPRN PRN PO 11/29/24 04:30 Acetaminophen 650 mg Q6HP PRN PO 11/29/24 04:30 12/02/24 05:37 650 MG Nitroglycerin 0.4 mg Q5MINP PRN SL 11/29/24 05:45 Morphine Sulfate 2 mg Q30M PRN IV 11/29/24 05:45 Azithromycin 250 ml @ 125 mls/hr DAILY IV 11/30/24 10:00 12/03/24 09:56 125 MLS/HR Methylprednisolone Sodium Succinate 60 mg Q8HR IV 11/30/24 14:00 12/03/24 05:33 60 MG Laboratory Results Laboratory Tests 12/01/24 13:43 12/02/24 05:10 Urinalysis Test 11/29/24 04:33 Urine Color Light-yellow (Yellow) Urine Clarity Clear (Clear) Urine pH 5.0 (5.0-9.0) Urine Specific [place] 1.036 (1.001-1.035) Urine Protein Negative (Negative) Urine Ketones Negative (Negative) Urine Blood Negative /uL (Negative) Urine Nitrite 1+ (Negative) H Urine Bilirubin Negative (Negative) Urine Urobilinogen Normal mg/dL (Negative) Urine Leukocyte Esterase Negative /uL (Negative) Urine RBC 1 /hpf (0 - 4) Urine Microscopic WBC 5 /HPF (0-5) Urine Squamous Epithelial Cells Few /hpf (<5) Urine Bacteria None seen /hpf (None Seen) Urine Glucose 4+ mg/dL (Normal) H Microbiology Microbiology Date/Time Source Procedure Growth Status 11/29/24 04:33 Voided Urine Urine Culture - Final Complete 11/28/24 23:14 Blood Blood Culture - Preliminary NO GROWTH AFTER 72 HOURS OF INCUBATION. Resulted Labs and/or images reviewed: Labs reviewed by me, Image(s) reviewed by me Assessment/Plan Assessment/Plan Chest pain with multiple cardiac risk factors, troponin negative, treatment per ACS protocol, consult for horse buyer Dr.M Mata appreciated Right lower lobe community-acquired Pneumonia Gram-positive versus Gram- negative: Rocephin azithromycin Sepsis secondary to pneumonia Acute hypoxic respiratory failure: Oxygen by nasal cannula Use of home oxygen 3 L per mt Acute COPD exacerbation Uncontrolled diabetes with glucose 420: Aggressive insulin sliding scale Lactic acidosis Acute metabolic encephalopathy Shirin test negative Flu test negative Hypercholesterolemia History of Coronary artery disease History of CABG Generalized weakness History of TIA Time spent 56 minutes Advanced care planning time 20 minutes Patient is full code Patient is hospice revoked Patient is requesting to be discharged home today back to palliative care Plan discussed with: Patient My Orders Orders - ELISEO PELAEZ MD Procedure Category Date Status Time Insert Midline ORDERS 12/02/24 Transmitted 13:33 Date of Service: Dec 03, 2024 Billing Provider: ELISEO PELAEZ MD Common Visit Codes: [id number] INP/OBS CARE(HIGH) ELISEO PELAEZ MD Dec 03, 2024 11:35
--- NOTE | 2024-12-03 11:43 | DVHDS2 ---
Discharge Summary Date of Admission Nov 29, 2024 at 05:37 Date of Discharge: Dec 03, 2024 Admitting Diagnosis Shortness of breath Wounds: None Labs/Diagnostic Data: Laboratory Results Test 12/03/24 08:22 12/02/24 05:10 12/01/24 13:43 11/29/24 04:33 POC Glucose 210 mg/dl (70-106) Sodium Level 141 mmol/L (136-145) Potassium Level 3.9 mmol/L (3.5-5.1) Chloride Level 103 mmol/L (98-107) Carbon Dioxide Level 28 mmol/L (20-31) Anion Gap 10 (5-15) Blood Urea Nitrogen 21 mg/dL (9-23) Creatinine 0.65 mg/dL (0.550-1.02) Glomerular Filtration Rate Calc 92 mL/min (>90) BUN/Creatinine Ratio 32.3 (10.0-20.0) Serum Glucose 155 mg/dL (74-106) Calcium Level 9.3 mg/dL (8.7-10.4) Total Bilirubin 0.3 mg/dL (0.2-1.0) Aspartate Amino Transferase (AST) 10 U/L (13-40) Alanine Aminotransferase (ALT) 10 U/L (7-40) Alkaline Phosphatase 85 U/L (46-116) Total Protein 6.3 g/dL (5.7-8.2) Albumin 4.0 g/dL (3.2-4.8) White Blood Count 9.9 10^3/uL (4.4-10.8) Red Blood Count 4.91 10^6/uL (4.0-5.20) Hemoglobin 14.1 g/dL (12.2-16.2) Hematocrit 43.4 % (36.0-46.0) Mean Corpuscular Volume 88.3 fL (80.0-100.0) Mean Corpuscular Hemoglobin 28.8 pg (28.0-32.0) Mean Corpuscular Hemoglobin Concent 32.6 g/dL (32.0-36.0) Red Cell Distribution Width 14.8 % (11.8-14.3) Platelet Count 304 10^3/uL (140-450) Mean Platelet Volume 9.5 fL (6.9-10.8) Neutrophils (%) (Auto) 90.2 % (37.0-80.0) Lymphocytes (%) (Auto) 7.4 % (10.0-50.0) Monocytes (%) (Auto) 2.3 % (0.0-12.0) Eosinophils (%) (Auto) 0.0 % (0.0-7.0) Basophils (%) (Auto) 0.1 % (0.0-2.0) Neutrophils # (Auto) 8.9 10 ^3/uL (1.6-8.6) Lymphocytes # (Auto) 0.7 10 ^3/uL (0.4-5.4) Monocytes # (Auto) 0.2 10 ^3/uL (0-1.3) Eosinophils # (Auto) 0 10 ^3/uL (0-0.8) Basophils # (Auto) 0 10 ^3/uL (0-0.2) Nucleated Red Blood Cells 0.1 % Urine Color Light-yellow (Yellow) Urine Clarity Clear (Clear) Urine pH 5.0 (5.0-9.0) Urine Specific [place] 1.036 (1.001-1.035) Urine Protein Negative (Negative) Urine Ketones Negative (Negative) Urine Blood Negative /uL (Negative) Urine Nitrite 1+ (Negative) Urine Bilirubin Negative (Negative) Urine Urobilinogen Normal mg/dL (Negative) Urine Leukocyte Esterase Negative /uL (Negative) Urine RBC 1 /hpf (0 - 4) Urine Microscopic WBC 5 /HPF (0-5) Urine Squamous Epithelial Cells Few /hpf (<5) Urine Bacteria None seen /hpf (None Seen) Urine Glucose 4+ mg/dL (Normal) Test 11/29/24 04:11 11/29/24 01:17 11/28/24 22:32 Influenza Type A Antigen Negative (Negative) Influenza Type B Antigen Negative (Negative) SARS-CoV-2 Antigen (Rapid) Negative (NEGATIVE) Lactic Acid Level 1.8 mmol/L (0.4-2.0) Troponin I High Sensitivity 6 ng/L (</=34) Prothrombin Time 10.5 sec (9.3-11.8) Prothrombin Time INR 0.99 (0.9-1.15) Activated Partial Thromboplast Time 25.9 SEC (24.5-34.5) Direct Bilirubin 0.3 mg/dL (<0.3) B-Type Natriuretic Peptide 111.94 pg/mL (0-100) Lipase 27 U/L (12-53) Other Laboratory Tests 12/02/24 05:10 12/01/24 13:43 Brief Hx & Hospital Course: 74-year-old female with a history of COPD on home oxygen diabetes history of coronary artery disease CABG hypercholesterolemia history of TIA came in for shortness of breaths found to have community-acquired pneumonia Gram-positive versus Gram-negative treated with Rocephin azithromycin. Also complained of chest pain treatment per ACS protocol troponin negative seen by Cardiology Dr. Mata no further cardiac workup she uses 3 L of oxygen at home blood sugars were high 420 controlled with the insulin sliding scale. Patient was on palliative care before came into the hospital and requesting to be discharged back to palliative care today Medications transmitted to the pharmacy for Levaquin and prednisone. Consults/Reason for consult Cardiology Dr. Mata Operations or Procedures None Condition at Discharge: Poor Final Diagnosis/Problems List Chest pain with multiple cardiac risk factors, troponin negative, treatment per ACS protocol, consult for elementary school music teacher Dr.M Mata appreciated Right lower lobe community-acquired Pneumonia Gram-positive versus Gram-negative: Rocephin azithromycin Sepsis secondary to pneumonia Acute hypoxic respiratory failure: Oxygen by nasal cannula Use of home oxygen 3 L per mt Acute COPD exacerbation Uncontrolled diabetes with glucose 420: Aggressive insulin sliding scale Lactic acidosis Acute metabolic encephalopathy Shirin test negative Flu test negative Hypercholesterolemia History of Coronary artery disease History of CABG Generalized weakness History of TIA Time spent 56 minutes Advanced care planning time 20 minutes Patient is full code Patient is hospice revoked Discharge Disposition: Hospice - Home Discharge Instruct/Medications Diet: Cardiac 2g Na,low cholest Activity: Light activity Follow Up/Referral: Follow up with your primary Dr Babcock all previous home meds Medications: Levaquin Prednisone tablets Transmitted to pharmacy Scheduled Aspirin (Aspir-Low), 81 MG PO DAILY, (Reported) B-Complex Vitamins (Vitamin B Complex), 1 CAP PO DAILY, (Reported) Carvedilol (Carvedilol), 1 TAB PO BID, (Reported) Cholecalciferol (Vitamin D3), 2,000 UNIT PO BID, (Reported) Empagliflozin (Jardiance), 25 MG PO DAILY, (Reported) Ferrous Sulfate (Ferrous Sulfate), 325 MG PO BID, (Reported) Glipizide (Glipizide), 10 MG PO BID, (Reported) Insulin Glargine (Basaglar Kwikpen), 50 UNIT SC HS, (Reported) Levofloxacin Hemihydrate (Levaquin 500 Mg), 1 TAB PO DAILY Metronidazole (Flagyl), 1 TAB PO TID Oxybutynin Chloride (Ditropan Xl), 10 MG PO DAILY, (Reported) Pantoprazole Sodium Sesquihydr (Pantoprazole Sodium), 40 MG PO BID Paroxetine HCl (Paroxetine Hydrochloride), 1 TAB PO DAILY, (Reported) Pregabalin (Lyrica), 1 CAP PO TID, (Reported) Rosuvastatin Calcium (Rosuvastatin Calcium), 40 MG PO DAILY, (Reported) Sucralfate (Carafate Susp), 1 GM PO QIDACHS Tirzepatide (Mounjaro), 5 MG SC QWEEKLY, (Reported) Zolpidem Tartrate (Zolpidem Tartrate), 1 TAB PO HS, (Reported) Scheduled PRN Albuterol Sulfate (Ventolin), 2.5 MG NEB for SHORTNESS OF BREATH, (Reported) Albuterol Sulfate (Ventolin Mdi), 90 MCG IN Q6HP PRN for SHORTNESS OF BREATH, (Reported) Hydrocodone-Acetaminophen (Hydrocodone Bitartrate/AC 5-325 mg), 1 TAB PO BID PRN Ibuprofen Micronized (Ibuprofen), 800 MG PO for MILD PAIN, (Reported) Discharge Statement: "Patient was advised to return to the ER or call 911 if any headaches, dizziness, shortness of breath, chest pain, abdominal pain, bleeding, fevers, or worsening of medical condition. Patient was counseled about treatment plan, medications, possible side effects, patientverbalized understanding. All questions were answered to the best of my ability. This discharge took greater then 30 minutes in planning, reviewing documentation, counseling the patient, and discussing with other team members." ASSESSMENT ASSESSMENT Hospital Course Slight improvement Assessment Chest pain with multiple cardiac risk factors, troponin negative, treatment per ACS protocol, consult for elementary school music teacher Dr.M Mata appreciated Right lower lobe community-acquired Pneumonia Gram-positive versus Gram- negative: Rocephin azithromycin Sepsis secondary to pneumonia Acute hypoxic respiratory failure: Oxygen by nasal cannula Use of home oxygen 3 L per mt Acute COPD exacerbation Uncontrolled diabetes with glucose 420: Aggressive insulin sliding scale Lactic acidosis Acute metabolic encephalopathy Shirin test negative Flu test negative Hypercholesterolemia History of Coronary artery disease History of CABG Generalized weakness History of TIA Time spent 56 minutes Advanced care planning time 20 minutes Patient is full code Patient is hospice revoked Date of Service: Dec 03, 2024 Billing Provider: ELISEO PELAEZ MD Common Visit Codes: [id number] DISCH DAY >30min ELISEO PELAEZ MD Dec 03, 2024 11:43
[2024-12-03] MEDS ORDERED: LEVO500T91 PO (11:44)
[2024-12-03] MEDS ORDERED: METH4PAK PO (11:44)
--- NOTE | 2024-12-03 13:12 | DVHPN2 ---
Progress Note - Dictate Date Seen: Dec 03, 2024 Medical Necessity Reason Pt with a Central, PICC or Fol: No Subjective Patient was seen and evaluated in follow up. Patient reports improvement in her symptoms. Patient remains on 3 LPM NC. BS are in the 240's. Telemetry reviewed. vital signs Vital Sign Date Time Temp Pulse Resp B/P (MAP) Pulse Ox O2 Delivery O2 Flow Rate FiO2 12/03/24 11:01 76 121/63 12/03/24 10:00 95 Nasal Cannula 3.0 12/03/24 10:00 32 12/03/24 09:00 98.8 14 98.8 Total Intake and Output 12/02/24 12/02/24 12/03/24 15:00 23:00 07:00 Intake Total 450 ml 500 ml Balance 450 ml 500 ml medications Current Medications Medications Dose Ordered Sig/Rivas Route Start Time Stop Time Status Last Admin Dose Admin Aspirin 81 mg DAILY PO 11/29/24 10:00 12/03/24 10:02 81 MG Carvedilol 3.125 mg Q12HR PO 11/29/24 10:00 12/03/24 10:01 3.125 MG Albuterol 2.5 mg Q4HPRN PRN NEB 11/29/24 04:30 Ipratropium [place] 0.5 mg Q4HPRN PRN NEB 11/29/24 04:30 Ceftriaxone Sodium 50 ml @ 100 mls/hr Q24H IV 11/29/24 21:00 12/02/24 20:14 100 MLS/HR Famotidine 20 mg BID IV 11/29/24 10:00 12/03/24 09:53 20 MG Atorvastatin Calcium 20 mg HS PO 11/29/24 22:00 12/02/24 22:06 20 MG Diagnostic Test (Pha) 1 strip IQ4HR 11/29/24 08:00 12/03/24 12:13 1 STRIP Insulin Human Regular IQ4HR SC 11/29/24 08:00 12/03/24 12:20 6 UNITS Dextrose 50 ml UD PRN IV 11/29/24 04:30 Sodium Chloride 10 ml Q8HR IV 11/29/24 06:00 12/03/24 05:33 10 ML Acetaminophen/ Hydrocodone Bitart 1 tab Q4HP PRN PO 11/29/24 04:30 12/03/24 10:15 1 TAB Ondansetron HCl 4 mg Q4HP PRN IV 11/29/24 04:30 Docusate Sodium 100 mg BIDPRN PRN PO 11/29/24 04:30 Acetaminophen 650 mg Q6HP PRN PO 11/29/24 04:30 12/02/24 05:37 650 MG Nitroglycerin 0.4 mg Q5MINP PRN SL 11/29/24 05:45 Morphine Sulfate 2 mg Q30M PRN IV 11/29/24 05:45 Azithromycin 250 ml @ 125 mls/hr DAILY IV 11/30/24 10:00 12/03/24 09:56 125 MLS/HR Methylprednisolone Sodium Succinate 60 mg Q8HR IV 11/30/24 14:00 12/03/24 05:33 60 MG objective GENERAL: Alert and oriented x 3. No acute distress. EYES: PERRL, EOMI. Anicteric. HENT: Moist mucous membranes. LUNGS: Decreased breath sounds. CARDIOVASCULAR: Regular rate and rhythm. ABDOMEN: Soft, nontender and nondistended. EXTREMITIES: No edema. NEUROLOGIC: No focal neurological deficits. SKIN: Warm, dry. laboratory and microbiology Laboratory Tests 12/02/24 05:10 12/01/24 13:43 Test 12/02/24 05:10 Range/Units Serum Glucose 155 H 74-106 mg/dL Problem List Chest pain. Right lower lobe community-acquired. Sepsis secondary to pneumonia. Acute hypoxic respiratory failure. Acute COPD exacerbation Uncontrolled diabetes. Lactic acidosis. Acute metabolic encephalopathy. Hypercholesterolemia. Coronary artery disease. History of CABG. Generalized weakness. History of TIA. Assessment/Plan Continued all current supportive medical care. IV Solu-Medrol. Morphine and Monarch for pain management. Aspirin, Lipitor. IV antibiotics as ordered. Coreg. Nitro SL. Morphine and Monarch for pain management. Additional plan as per the hospital course. Dietary Evaluation Review Comments: 1) CCHO 60gm + cardiac diet 2) Refer CDE on DC Expected Outcomes/Goals: Blood glucoe under control FU 3-5 days Plan discussed with: Patient FITO SIMONS MD Dec 03, 2024 12:57
== END 2024-12-03 19:07 | disposition hospice, home (50) | DRG 871 ==
LOC: ER 22:25 → OVERFLOW 11-29 05:37 → TELE-WESTW 11-29 18:00
PROVIDERS: ADMIT Family Medicine; ATTEND Family Medicine
PROC: 05HD33Z Insertion of Infusion Device into Right Cephalic Vein, Percutaneous Approach (ICD-10-PCS; principal; 2024-12-02)
PROC: B54MZZA Ultrasonography of Right Upper Extremity Veins, Guidance (ICD-10-PCS; 2024-12-02)
DX: A41.50 Gram-negative sepsis, unspecified (principal); G93.41 Metabolic encephalopathy; J96.01 Acute respiratory failure with hypoxia; J15.69 Pneumonia due to other Gram-negative bacteria; J15.9 Unspecified bacterial pneumonia; E87.20 Acidosis, unspecified; J44.0 Chronic obstructive pulmonary disease with (acute) lower respiratory infection; J44.1 Chronic obstructive pulmonary disease with (acute) exacerbation; I10 Essential (primary) hypertension; I25.10 Atherosclerotic heart disease of native coronary artery without angina pectoris; Z20.822 Contact with and (suspected) exposure to COVID-19; G89.29 Other chronic pain; E78.00 Pure hypercholesterolemia, unspecified; Z51.5 Encounter for palliative care; Z99.81 Dependence on supplemental oxygen; Z95.1 Presence of aortocoronary bypass graft; Z90.710 Acquired absence of both cervix and uterus; Z86.73 Personal history of transient ischemic attack (TIA), and cerebral infarction without residual deficits; Z83.3 Family history of diabetes mellitus; Z82.49 Family history of ischemic heart disease and other diseases of the circulatory system
CPT/HCPCS: 36415; 71045; 80048; 80053; 80076; 81001; 82962; 83605; 83690; 83880; 84484; 85025; 85610; 85730; 87040; 87086; 87426; 87804; 93005; 96365; 96375; 99291; G0378; J1815; J2405; J3490

== ENCOUNTER → 2024-12-09 | Outpatient (CLI) | payer MEDICARE, MEDICAID ==
[~2024-12-09] MED LIST changes: +METH4PAK PO
[2024-12-09 12:13] LABS: Urine Protein, UAD Negative (Negative)
== END | disposition home or self-care (01) ==
LOC: LAB 11:50
PROVIDERS: ATTEND Internal Medicine
DX: N39.0 Urinary tract infection, site not specified (principal)
CPT/HCPCS: 81001; 87086; 87088; 87186

== ENCOUNTER 2025-01-13 10:56 | Outpatient (CLI) | payer MEDICARE, MEDICAID ==
[2025-01-13 11:53] LABS: Hematocrit 47.6 % (36.0-46.0); Hemoglobin 15.8 g/dL (12.2-16.2); Mean Corpuscular Hemoglobin 29.4 pg (28.0-32.0); Mean Corpuscular Volume 88.4 fL (80.0-100.0); Nucleated Red Blood Cells % 0.1 %
[2025-01-13 12:04] LABS: Alanine Aminotransferase 12 U/L (7-40); Albumin 4.7 g/dL (3.2-4.8); Alkaline Phosphatase 104 U/L (46-116); Anion Gap 14 (5-15); BUN/Creatinine Ratio 12.8 (10.0-20.0); Bilirubin, Total 0.6 mg/dL (0.2-1.0); Blood Urea Nitrogen 11 mg/dL (9-23); Calcium 9.8 mg/dL (8.7-10.4); Carbon Dioxide 26 mmol/L (20-31); Chloride 100 mmol/L (98-107); Potassium 3.9 mmol/L (3.5-5.1); Sodium 140 mmol/L (136-145); Total Protein 6.7 g/dL (5.7-8.2)
[2025-01-13 12:14] LABS: Glucose 316 mg/dL (74-106)
[2025-01-13 12:29] LABS: Cholesterol 155 mg/dL (< 200)
[2025-01-13 12:31] LABS: HDL Cholesterol 35 mg/dL (40-59); Triglycerides 277 mg/dL (< 150)
[2025-01-13 16:27] LABS: Hepatitis A Total Antibody Positive (Negative); Hepatitis B Surface Antigen Negative (Negative); Hepatitis C Antibody Negative (Negative)
== END 2025-01-13 17:00 | disposition home or self-care (01) ==
LOC: LAB 10:56
PROVIDERS: ATTEND Licensed Practical Nurse
DX: I12.9 Hypertensive chronic kidney disease with stage 1 through stage 4 chronic kidney disease, or unspecified chronic kidney disease (principal); E11.22 Type 2 diabetes mellitus with diabetic chronic kidney disease; N18.2 Chronic kidney disease, stage 2 (mild); E11.42 Type 2 diabetes mellitus with diabetic polyneuropathy; E78.5 Hyperlipidemia, unspecified; Z12.11 Encounter for screening for malignant neoplasm of colon
CPT/HCPCS: 36415; 80053; 80061; 82043; 82607; 82746; 83036; 85025; 86704; 86706; 86708; 86803; 87340

== ENCOUNTER 2025-05-29 19:42 | Emergency (ER) | payer OTHER, MEDICARE, MEDICAID ==
[~2025-05-29] VITALS: Ht 157.5 cm; Wt 75.1 kg
--- NOTE | 2025-05-29 22:59 | DVH ---
EXAM: XY R SHOULDER 2+ VIEW XRAY REASON FOR EXAM: FALL INJURY TECHNIQUE: AP view and Y-view of the right shoulder are submitted for review. COMPARISON: XY R SHOULDER 2+ VIEW XRAY on DOS: 04/29/24 FINDINGS: The Y-view is suboptimal. There is mild demineralization of the bones. No acute fracture or dislocation is identified. There is mild narrowing of the acromioclavicular joint. The soft tissues are grossly unremarkable. IMPRESSION: No acute fracture or dislocation is identified within the limitations of this study.
--- NOTE | 2025-05-29 23:00 | DVH ---
EXAM: XY R ELBOW 3 VIEW XRAY REASON FOR EXAM: FALL INJURY TECHNIQUE: AP, lateral, and oblique views of the right elbow are submitted for review. COMPARISON: XY R HUMERUS XRAY on DOS: 04/29/24 FINDINGS: There is mild demineralization of the bones. There is no acute fracture or dislocation. There is no significant elbow effusion. The soft tissues are grossly unremarkable. IMPRESSION: No acute fracture or dislocation.
--- NOTE | 2025-05-30 02:05 | ED.PDOC ---
Musculoskeletal HPI Comments 75-year-old female complains of right elbow and shoulder pain after fall Chief Complaint: Fall Injury Time Seen by MD: 01:19 Primary Care Provider: Dr. Vargas Reviewed Notes: Nurses Notes Allergies: Coded Allergies: NO KNOWN ALLERGIES (Unverified , 01/24/24) Home Meds Active Scripts Methylprednisolone (Medrol Dosepak) 4 Mg [place], 4 MG PO UD, #21 TAB UAD Prov:ELISEO PELAEZ MD 12/03/24 Levofloxacin Hemihydrate (LEVAQUIN 500 MG) 500 Mg Tab, 1 TAB PO DAILY, #7 TAB Prov:ELISEO PELAEZ MD 12/03/24 Hydrocodone-Acetaminophen (Hydrocodone Bitartrate/AC 5-325 mg) 1 Tab Tab, 1 TAB PO BID PRN, #24 TAB Prov:VICTOR M BURKETT 04/29/24 Metronidazole (Flagyl) 500 Mg Tab, 1 TAB PO TID for 3 Days, #9 TAB Prov:JEFERSON VARGAS MD 05/31/23 Levofloxacin Hemihydrate (LEVAQUIN 500 MG) 500 Mg Tab, 1 TAB PO DAILY, #3 TAB Prov:JEFERSON VARGAS MD 05/31/23 Sucralfate (CARAFATE SUSP) 1 Gm/10 Ml Ss, 1 GM PO QIDACHS for 30 Days, #60 ML Prov:JEFERSON VARGAS MD 05/31/23 Pantoprazole Sodium Sesquihydr (Pantoprazole Sodium) 40 Mg Tab, 40 MG PO BID for 30 Days, #60 TAB Prov:JEFERSON VARGAS MD 05/31/23 Reported Medications Tirzepatide (Mounjaro) 5 Mg/0.5 Ml Inj, 5 MG SC QWEEKLY, INJ 05/28/23 Glipizide (Glipizide) 10 Mg Tab, 10 MG PO BID, MG 05/28/23 Pregabalin (Lyrica) 200 Mg Cap, 1 CAP PO TID, #90 CAP 05/28/23 Rosuvastatin Calcium (Rosuvastatin Calcium) 40 Mg Tab, 40 MG PO DAILY, TAB 05/28/23 Empagliflozin (Jardiance) 25 Mg Tab, 25 MG PO DAILY, TAB 05/28/23 Aspirin (Aspir-Low) 81 Mg Tab, 81 MG PO DAILY for 30 Days, MG 08/15/20 B-Complex Vitamins (Vitamin B Complex) Cap, 1 CAP PO DAILY, CAP 08/15/20 Oxybutynin Chloride (Ditropan Xl) 10 Mg Tab, 10 MG PO DAILY, TAB 08/15/20 Insulin Glargine (Basaglar Kwikpen) 100 Unit/Ml Inj, 50 UNIT SC HS, INJ 08/15/20 Carvedilol (Carvedilol) 3.125 Mg Tab, 1 TAB PO BID 07/30/20 Paroxetine HCl (Paroxetine Hydrochloride) 30 Mg Tab, 1 TAB PO DAILY 07/30/20 Albuterol Sulfate (VENTOLIN MDI) 90 Mcg Ih, 90 MCG IN Q6HP PRN for SHORTNESS OF BREATH for 30 Days, MCG 05/14/18 Ibuprofen Micronized (Ibuprofen) 800 Mg Tab, 800 MG PO PRN for MILD PAIN, TAB 05/14/18 Albuterol Sulfate (Ventolin) 2.5 Mg/3 Ml Nb, 2.5 MG NEB PRN for SHORTNESS OF BREATH 05/14/18 Cholecalciferol (VITAMIN D3) 2,000 Unit Tab, 2000 UNIT PO BID, TAB 05/14/18 Zolpidem Tartrate (Zolpidem Tartrate) 10 Mg Tab, 1 TAB PO HS, #30 TAB 2 Refills 05/14/18 Ferrous Sulfate (Ferrous Sulfate) 325 Mg Tab, 325 MG PO BID 05/19/11 Information Source: Patient Mode of Arrival: Ambulatory Past Medical History PAST MEDICAL HISTORY: Arthritis, CAD, COPD, DM, High Lipids, TIA Surgical History: Appendectomy, CABG, Hysterectomy 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 History Family History Family History: No family hx of DM, No family hx of Heart perez Social History Smoker: Non-Smoker Alcohol: Denies ETOH Use Drugs: Denies Drug Use Lives In: Home Musculoskeletal: reports: joint pain, joint swelling, muscle stiffness Physical Exam General Appearance: Mild Distress HEENT: Normal ENT Inspection, Pharynx Normal, TMs Normal Neck: Full Range of Motion, Non-Tender, Normal, Normal Inspection Respiratory: Chest Non-Tender, Lungs Clear, No Accessory Muscle Use, No Respiratory Distress, Normal Breath Sounds Cardiovascular: No Edema, No JVD, No Murmur, No Gallop, Normal Peripheral Pulses, Regular Rate/Rhythm Breast Exam: Deferred Gastrointestinal: No Organomegaly, Non Tender, No Pulsatile Mass, Normal Bowel Sounds, Soft Genitalia: Deferred Pelvic: Deferred Rectal: Deferred Extremities: Tender (tender right shoulder and elbow), Other Musculoskeletal : Apperance: Normal Neurologic: Alert, hotel or motel manager II-XII nml as Tested, No Motor Deficits, Normal Affect, Normal Mood, No Sensory Deficits Cerebellar Function: Normal Reflexes: Normal Skin: Dry, Normal Color, Warm Lymphatic: No Adenopathy Was a procedure done? Was a procedure done?: No Differential Diagnosis EXT Differential Diagnosis: Cellulitis, Deep Vein Thrombosis, Compartment Syndrome, Fracture, Sprain, Dislocation, Laceration, Neurovascular injury, Other X-Ray, Labs, Meds, VS Vital Signs Date Time Temp Pulse Resp B/P (MAP) Pulse Ox O2 Delivery O2 Flow Rate FiO2 05/30/25 02:40 98.0 95 16 102/59 (73) 92 98.0 05/29/25 19:44 97.5 115 17 114/84 93 97.5 Current Medications Medications (Trade) Dose Ordered Sig/Rivas Route Start Time Stop Time Status Last Admin Acetaminophen/ Hydrocodone Bitart ([place] 5/325MG Tab) 1 tab ONCE ONCE PO 05/30/25 02:30 05/30/25 02:31 DC 05/30/25 02:45 Time of 1ST Reevaluation: 01:00 Reevaluation 1ST: Unchanged Patient Education/Counseling: Diagnosis, Treatment Family Education/Counseling: No Family Present Departure 1 Departure Time of Disposition: 02:04 Impression: Primary Impression: Contusion of right shoulder Additional Impression: Contusion of right elbow Disposition: 01 HOME / SELF CARE / HOMELESS Condition: Stable Additional Instructions: Your xrays today showed: IMPRESSION: No acute fracture or dislocation. Follow up with your primary physician Return to the ED for any worsening symptoms or concerns Discharged With: Self Critical Care Note Critical Care Time?: No Stability Stability form required: No Heart Score Heart Score: Heart Score Response (Comments) Value History N/A 0 EKG N/A 0 Age N/A 0 Risk Factors N/A 0 Troponin N/A 0 Total 0 ZEYNEP RICO MD May 30, 2025 02:04
[2025-05-30 02:40] VITALS: BP 102/59; PULSE 95; RESP 16; TEMP 98; O2SAT 92
[2025-05-30] MEDS: HYDROcodone-ACET 5/325MG TAB PO ONE (02:45)
== END 2025-05-30 02:46 | disposition home or self-care (01) ==
LOC: ER 19:42
DX: S50.01XA Contusion of right elbow, initial encounter (principal); S40.011A Contusion of right shoulder, initial encounter; E78.5 Hyperlipidemia, unspecified; I25.10 Atherosclerotic heart disease of native coronary artery without angina pectoris; E11.9 Type 2 diabetes mellitus without complications; J44.9 Chronic obstructive pulmonary disease, unspecified; M19.90 Unspecified osteoarthritis, unspecified site; Z79.899 Other long term (current) drug therapy; Z90.710 Acquired absence of both cervix and uterus; Z90.49 Acquired absence of other specified parts of digestive tract; Z86.73 Personal history of transient ischemic attack (TIA), and cerebral infarction without residual deficits; Z95.1 Presence of aortocoronary bypass graft; Z79.84 Long term (current) use of oral hypoglycemic drugs; Z79.82 Long term (current) use of aspirin; Z79.85 Long-term (current) use of injectable non-insulin antidiabetic drugs; W19.XXXA Unspecified fall, initial encounter; Y93.89 Activity, other specified; Y92.89 Other specified places as the place of occurrence of the external cause; Y99.8 Other external cause status
CPT/HCPCS: 73030; 73080